=== PATIENT | female | born 1975 | race Caucasian/White ===

== ENCOUNTER 2024-11-04 21:57 | Inpatient (IN) | payer MEDICAID, OTHER ==
[~2024-11-04] VITALS: Ht 167.6 cm; Wt 72.0 kg
--- NOTE | 2024-11-04 22:10 | ECG ---
[facility] Test Date: 2024-11-04 Test Time: 21:58:44 Pat Name: ANJALI CHAU Department: ED Room: [address] [place] [address] Gender: F Carpentry Foreman: jg : 1975 Requested By: CATHY SILVERIO Order Number: [id number] Reading MD: Duglas Dorman Measurements Intervals [place] Rate: 127 P: 48 PA: 112 QRS: -9 QRSD: 144 T: 0 QT: 347 QTc: 505 Interpretive Statements Sinus tachycardia Consider right atrial enlargement Left bundle branch block Electronically Signed On 11-06-2024 22:27:53 PDT by Duglas Dorman Please click the below link to view image of tracing.
--- NOTE | 2024-11-04 22:14 | ED.PDOC ---
HPI Comments 49-year-old female who came to your via EMS for chest pains. Patient recently discharged at [facility], due to pneumonia and DVT of the left leg. Patient is started on Eliquis. States 12 hours ago, she started experiencing chest pains and shortness a breath, persisted and worsened prompting her to come to the ER. Chief Complaint: Chest Pain Time Seen by MD: 22:14 Reviewed Notes: Nurses Notes Allergies: Coded Allergies: NO KNOWN ALLERGIES (Unverified , 11/05/24) Information Source: Patient, Emergency Med Personnel Mode of Arrival: EMS Severity: Moderate Timing: Hours Duration: Since onset Prehospital treatment: None Location: Substernal Radiation: No Radiation Quality: Sharp Onset: With Light Exertion Cardiac Risk Factors: Other (DVT) History of: Similar pain in past Associated Signs and Symptoms: SOB Past Medical History Past Medical History (Other): DVT Surgical History: Denies all surgeries OB/GYN PHYSICIAN History: Denies all OB/GYN PHYSICIAN Hx Family History Family History: Reviewed,noncontributory to illness Social History Smoker: Non-Smoker Alcohol: Denies ETOH Use Drugs: Denies Drug Use Lives In: Home Constitutional: denies: chills, diaphoresis, fatigue, fever, malaise, sweats, weakness, others EENTM: denies: blurred vision, double vision, ear bleeding, ear discharge, ear drainage, ear pain, ear ringing, eye pain, eye redness, hearing loss, mouth pain , mouth swelling, nasal discharge, nose bleeding, nose congestion, nose pain, photophobia, tearing, throat pain, throat swelling, voice changes, others Respiratory: reports: shortness of breath; denies: cough, hemoptysis, orthopnea, SOB at rest, SOB with excertion, stridor, wheezing, others Cardiovascular: reports: chest pain; denies: dizzy spells, diaphoresis, Dyspnea on exertion, edema, irregular heart beat, left arm pain, lightheadedness, palpitations, PND, syncope, others Gastrointestinal: denies: abdomen distended, abdominal pain, blood streaked bowels, constipated, diarrhea, dysphagia, difficulty swallowing, hematemesis, melena, nausea, poor appetite, poor fluid intake, rectal bleeding, rectal pain, vomiting, others Genitourinary: denies: abnormal vagina bleeding, burning, dyspareunia, dysuria, flank pain, frequency, hematuria, incontinence, pain, , vagina discharge, urgency, others Neurological: denies: dizziness, fainting, headache, left sided numbness, left sided weakness, numbness, paresthesia, pre-existing deficit, right sided numbness, right sided weakness, seizure, speech problems, tingling, tremors, weakness, others Musculoskeletal: denies: back pain, gout, joint pain, joint swelling, muscle p ain, muscle stiffness, neck pain, others Integumetry: denies: bruises, change in color, change in hair/nails, dryness, laceration, lesions, lumps, rash, wounds, others Allergic/Immunocompromised: denies: Difficulty Healing, Frequent Infections, Hives, Itching, others Hematologic/Lymphatic: denies: anemia, blood clots, easy bleeding, easy bruising, swollen glands, others Endocrine: denies: excessive hunger, excessive sweating, excessive thirst, excessive urination, flushing, intolerance to cold, intolerance to heat, unexplained weight gain, unexplained weight loss, others Psychiatric: denies: anxiety, bipolar disorder, depression, hopeless, panic disorder, schizophrenia, sleepless, suicidal, others Physical Exam General Appearance: No Apparent Distress, Normal HEENT: Normal ENT Inspection, Pharynx Normal, TMs Normal Neck: Full Range of Motion, Non-Tender, Normal, Normal Inspection Respiratory: Chest Non-Tender, Lungs Clear, No Accessory Muscle Use, No Respiratory Distress, Normal Breath Sounds Cardiovascular: No Edema, No JVD, No Murmur, No Gallop, Normal Peripheral Pulses, Regular Rate/Rhythm Breast Exam: Deferred Gastrointestinal: No Organomegaly, Non Tender, No Pulsatile Mass, Normal Bowel Sounds, Soft Genitalia: Deferred Pelvic: Deferred Rectal: Deferred Extremities: No calf tenderness, Normal capillary refill, Normal inspection, Normal range of motion, Non-tender, No pedal edema Musculoskeletal : Apperance: Normal Neurologic: Alert, job compositor II-XII nml as Tested, No Motor Deficits, Normal Affect, Normal Mood, No Sensory Deficits Cerebellar Function: Normal Reflexes: Normal Skin: Dry, Normal Color, Warm Lymphatic: No Adenopathy Was a procedure done? Was a procedure done?: No CP Differential Dx Differential Diagnosis: Angina, Anxiety / Panic Attack, Pulmonary Embolus Differential Diagnosis: Angina, Chest Wall Pain, Costochondritis, Esophageal reflux/spasm, Gastritis, Myocardial Infarction, Pneumonia X-Ray, Labs, Meds, VS Vital Signs Date Time Temp Pulse Resp B/P (MAP) Pulse Ox O2 Delivery O2 Flow Rate FiO2 11/05/24 03:00 118 26 124/84 (97) 96 11/05/24 01:00 98.1 122 32 122/82 (95) 95 98.1 11/05/24 00:52 115 11/05/24 00:00 116 11/04/24 23:00 123 29 95 Room Air* 0 21 11/04/24 23:00 97.7 123 29 120/78 (92) 95 97.7 11/04/24 22:59 122 11/04/24 21:58 127 11/04/24 21:57 98.2 126 16 117/76 (90) 96 98.2 Lab Test 11/05/24 00:52 11/04/24 22:59 11/04/24 22:10 Range/Units Troponin I High Sensitivity 33 31 29 </=34 ng/L White Blood Count 6.6 4.4-10.8 10^3/uL Red Blood Count 4.04 4.0-5.20 10^6/uL Hemoglobin 10.8 L 12.2-16.2 g/dL Hematocrit 32.8 L 36.0-46.0 % Mean Corpuscular Volume 81.1 80.0-100.0 fL Mean Corpuscular Hemoglobin 26.7 L 28.0-32.0 pg Mean Corpuscular Hemoglobin Concent 32.9 32.0-36.0 g/dL Red Cell Distribution Width 15.8 H 11.8-14.3 % Platelet Count 391 140-450 10^3/uL Mean Platelet Volume 9.4 6.9-10.8 fL Neutrophils (%) (Auto) 78.8 37.0-80.0 % Lymphocytes (%) (Auto) 11.9 10.0-50.0 % Monocytes (%) (Auto) 8.4 0.0-12.0 % Eosinophils (%) (Auto) 0.1 0.0-7.0 % Basophils (%) (Auto) 0.8 0.0-2.0 % Neutrophils # (Auto) 5.2 1.6-8.6 10 ^3/uL Lymphocytes # (Auto) 0.8 0.4-5.4 10 ^3/uL Monocytes # (Auto) 0.6 0-1.3 10 ^3/uL Eosinophils # (Auto) 0 0-0.8 10 ^3/uL Basophils # (Auto) 0.1 0-0.2 10 ^3/uL Nucleated Red Blood Cells 0.0 % Sodium Level 135 L 136-145 mmol/L Potassium Level 4.3 3.5-5.1 mmol/L Chloride Level 104 98-107 mmol/L Carbon Dioxide Level 23 20-31 mmol/L Anion Gap 8 5-15 Blood Urea Nitrogen 8 L 9-23 mg/dL Creatinine 0.83 0.550-1.02 mg/dL Glomerular Filtration Rate Calc 87 >90 mL/min BUN/Creatinine Ratio 9.6 L 10.0-20.0 Serum Glucose 114 H 74-106 mg/dL Calcium Level 9.3 8.7-10.4 mg/dL Current Medications Medications (Trade) Dose Ordered Sig/Nevaeh Route Start Time Stop Time Status Last Admin Sodium Chloride 1,000 ml @ 1,000 mls/hr Q1H ONCE IV 11/05/24 03:45 11/05/24 04:44 DC 11/05/24 04:06 CHEST RADIOGRAPH Indication: leg pain Technique: Frontal and lateral view of the chest was obtained Comparison: None FINDINGS / IMPRESSION: Lines and Tubes: None Lungs: Multifocal airspace opacities noted in right upper and lower lobes and left upper and mid lung, may represent pneumonia. Pleura: No effusion. No pneumothorax. Cardiomediastinal contours: Moderate cardiomegaly. Left lower extremity venous duplex Clinical History: leg swelling and pain Comparison: None Technique: Duplex Doppler evaluation of the deep venous system of the left lower extremity from the common femoral vein to the popliteal vein including color Doppler and spectral/pulsed waveform analysis was performed. Findings: The common femoral vein demonstrates appropriate compressibility and waveform variability. There is compressibility/patency of the great saphenous vein at the proximal thigh. The proximal to mid femoral vein demonstrates appropriate compressibility and waveform variability. There is however non compressibility and evidence of thrombus in the distal superficial femoral vein, popiteal vein, and posterior tibial vein. Impression: Positive for left leg DVT with evidence of thrombus in distal superficial femoral vein, popiteal vein, and posterior tibial vein. Time of 1ST Reevaluation: 22:11 Reevaluation 1ST: Unchanged Patient Education/Counseling: Diagnosis, Treatment Family Education/Counseling: No Family Present Departure 1 Departure Time of Disposition: 05:13 (Patient is not septic. Patient presents symptoms concerning for DVT and PE. In my judgment the patient has a DVT and we will consult Interventional Radiology and. Patient's lungs have diffuse inflammatory processes. We will empirically cover patient with antibiotics and admit patient for expert consultation) Impression: Primary Impression: DVT (deep venous thrombosis) Qualified Codes: I82.412 - Acute embolism and thrombosis of left femoral ve in Additional Impressions: Shortness of breath Multifocal lung consolidation Disposition: ADMITTED INPATIENT Admit to: Tele Condition: Guarded Critical Care Note Critical Care Time?: Yes Critical care comment: Shortness of breath Authorized and Performed by: Cathy Gil MD Total critical care time: Approximately 39 minutes Due to a high probability of clinically significant, life threatening deterioration, the patient required my highest level of preparedness to interve ne emergently and I personally spent this critical care time directly and personally managing the patient. This critical care time included obtaining a history; examining the patient; pulse oximetry; ordering and review of studies; arranging urgent treatment with development of a management plan; evaluation of patient's response to treatment; frequent reassessment; and, discussions with other providers. This critical care time was performed to assess and manage the high probability of imminent, life-threatening deterioration that could result in multi-organ failure. It was exclusive of separately billable procedures and treating other patients and teaching time. Please see my other sections and the rest of the note for further information on patient assessment and treatment. Stability Stability form required: No Heart Score Heart Score: Heart Score Response (Comments) Value History N/A 0 EKG N/A 0 Age N/A 0 Risk Factors N/A 0 Troponin N/A 0 Total 0 I personally scribed for CATHY GIL MD ([email or web address]) on 11/04/24 at 22:14. Elect ronically submitted by Jaguar Osullivan ([email or web address]). I personally scribed for CATHY GIL MD ([email or web address]) on 11/05/24 at 00:54. E lectronically submitted by Jaguar Osullivan ([email or web address]). CATHY GIL MD November 04, 2024 22:14
[2024-11-04 22:29] LABS: Basophils # (auto) 0.1 10 ^3/uL (0-0.2); Basophils % (auto) 0.8 % (0.0-2.0); Eosinophils # (auto) 0 10 ^3/uL (0-0.8); Eosinophils % (auto) 0.1 % (0.0-7.0); Hematocrit 32.8 % (36.0-46.0); Hemoglobin 10.8 g/dL (12.2-16.2); Lymphocytes # (auto) 0.8 10 ^3/uL (0.4-5.4); Lymphocytes % (auto) 11.9 % (10.0-50.0); Mean Corpuscular Hemoglobin 26.7 pg (28.0-32.0); Mean Corpuscular Hgb Conc. 32.9 g/dL (32.0-36.0); Mean Corpuscular Volume 81.1 fL (80.0-100.0); Monocytes # (auto) 0.6 10 ^3/uL (0-1.3); Monocytes % (auto) 8.4 % (0.0-12.0); Neutrophils # (auto) 5.2 10 ^3/uL (1.6-8.6); Neutrophils % (auto) 78.8 % (37.0-80.0); Platelet Count (auto) 391 10^3/uL (140-450); Red Blood Cells 4.04 10^6/uL (4.0-5.20); Red Cell Distribution Width 15.8 % (11.8-14.3); White Blood Cell 6.6 10^3/uL (4.4-10.8)
[2024-11-04 22:35] LABS: Chloride 104 mmol/L (98-107); Potassium 4.3 mmol/L (3.5-5.1)
[2024-11-04 22:36] LABS: Anion Gap 8 (5-15); Carbon Dioxide 23 mmol/L (20-31)
[2024-11-04 22:37] LABS: Calcium 9.3 mg/dL (8.7-10.4)
[2024-11-04 22:38] LABS: Sodium 135 mmol/L (136-145)
[2024-11-04 22:42] LABS: BUN/Creatinine Ratio 9.6 (10.0-20.0); Blood Urea Nitrogen 8 mg/dL (9-23); Glucose 114 mg/dL (74-106)
[2024-11-04 23:00] VITALS: PULSE 123; RESP 29; O2SAT 95
[2024-11-05] VITALS (12 sets, daily range): BP systolic 124; BP diastolic 84; PULSE 103–119; RESP 12–25; TEMP 98.2; O2SAT 95–100
--- NOTE | 2024-11-05 00:06 | DVH ---
Left lower extremity venous duplex Clinical History: leg swelling and pain Comparison: None Technique: Duplex Doppler evaluation of the deep venous system of the left lower extremity from the common femor al vein to the popliteal vein including color Doppler and spectral/pulsed waveform analysis was perfo rmed. Findings: The common femoral vein demonstrates appropriate compressibility and waveform variability. There is compressibility/patency of the great saphenous vein at the proximal thigh. The proximal to mid femoral vein demonstrates appropriate compressibility and waveform variability. There is however non compressibility and evidence of thrombus in the distal superficial femoral vein, popiteal vein, and posterior tibial vein. Impression: Positive for left leg DVT with evidence of thrombus in distal superficial femoral vein, popiteal vei n, and posterior tibial vein.
--- NOTE | 2024-11-05 00:11 | DVH ---
CHEST RADIOGRAPH Indication: leg pain Technique: Frontal and lateral view of the chest was obtained Comparison: None FINDINGS / IMPRESSION: Lines and Tubes: None Lungs: Multifocal airspace opacities noted in right upper and lower lobes and left upper and mid lung , may represent pneumonia. Pleura: No effusion. No pneumothorax. Cardiomediastinal contours: Moderate cardiomegaly.
[2024-11-05] MEDS: IOHEXOL 350 MG/ML 100ML IJ ONE (02:51)
--- NOTE | 2024-11-05 03:15 | ECG ---
[facility] Test Date: 2024-11-04 Test Time: 22:59:44 Pat Name: ANJALI CHAU Department: ED Room: [address] [place] [address] Gender: F Bee Raiser: COLLETTE : 1975 Requested By: CATHY SILVERIO Order Number: [id number] Reading MD: Duglas Dorman Measurements Intervals [place] Rate: 122 P: 64 AR: 109 QRS: 1 QRSD: 151 T: -28 QT: 367 QTc: 523 Interpretive Statements Sinus tachycardia Left bundle branch block Electronically Signed On 11-06-2024 22:28:14 PDT by Duglas Dorman Please click the below link to view image of tracing.
--- NOTE | 2024-11-05 03:16 | ECG ---
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
[2024-11-05] MEDS: SODIUM CHLORIDE 0.9% 1,000 ML IV ONE ×3 (04:06→07:49)
[2024-11-05] MEDS: AZITHROMYCIN 250 MG TAB PO ONE (04:45)
[2024-11-05] MEDS: CEFEPIME 2GM/50ML NS 50 ML IV ONE (04:45)
[2024-11-05] MEDS: VANCOMYCIN 1GM/200ML PM 200 ML IV ONE (04:45)
--- NOTE | 2024-11-05 04:46 | DVH ---
Procedure: CT CT ANGIO CHEST CONTRAST Reason for study/Clinical History: angel pain, sob, dvt Comparison Study: None Exam Date: 11/05/2024 02:49 AM Radiation Dose Information: CT Dose: CTDI volume is 223.5 mGy. Dose-length product is 1802.8 mGy*cm Contrast: 100 cc Omnipaque 350 TECHNIQUE: After the uneventful administration of intravenous contrast intravenously, CT imaging was performed through the chest PE protocol. Coronal and sagittal reformations were performed by the tech nologist including MIP and 3D reformatted images.All CT scans at this medical facility are performed using dose modulation techniques as appropriate to a performed exam including the following: Automate d exposure control was utilized; adjustment of the MA and/or KV according to patient size; and use of iterative reconstruction technique. FINDINGS: Evaluation of the pulmonary arteries demonstrates no evidence of focal filling defect to suggest pulm onary embolus. Thoracic aorta appears normal in caliber and contour. No pericardial effusion. Small right pleural effusion. There is cardiomegaly Diffuse ill-defined pulmonary nodules with multiple areas of more consolidative lesions. More cavita ry appearing lesion with central crazy paving measuring 2.7 cm in the right upper lobe, similar appea ring lesion in the right lower lobe measuring 3.3 cm. Mediastinal adenopathy with lymph nodes measuring up to 1.4 cm. Visualized portions of the upper abdomen demonstrate gastric lap band. No suspicious osseous lesion. IMPRESSION: 1. Diffuse pulmonary abnormality with multiple ill-defined pulmonary nodules, cavitary type lesions a nd crazy paving. Differential considerations are broad including protein alveolar proteinosis, pneumo gemini such as pneumocystis jiroveci, organizing pneumonia, least likely malignancy given appearance. 2. Mediastinal adenopathy, likely reactive 3. Small right pleural effusion 4. Cardiomegaly 5. No evidence of pulmonary embolism.
[2024-11-05] MEDS ORDERED: ACETAMINOPHEN 325 MG TAB PO PRN (05:30)
[2024-11-05] MEDS ORDERED: HEPARIN SODIUM (PORCINE) 5000 UNITS/ML 1ML VIAL IV ONE (05:30)
[2024-11-05] MEDS ORDERED: ONDANSETRON HCL 4 MG/2 ML VIAL IV PRN (05:30)
[2024-11-05] MEDS: methylPREDNISolone SOD SUCC 40 MG/ML VL IV SCH (06:00)
--- NOTE | 2024-11-05 06:14 | DVHHP2 ---
Admitting Diagnosis: Pneumocystis Jirovecii, acute respiratory failure, hypoxia, left lower extremity DVT History of Present Illness History Source: Patient Exam Limitations: Clinical condition HPI Mrs. Breanna Ramey is a 49-year-old female with a recent history of LLE DVT, Pneumonia seen and treated at [facility] with chest pain and shortness of breath. Patient is a poor historian. Patient was started on Eliquis. Patient states 12 hours ago, she started experiencing chest pains and shortness a breath, persisted and worsened. Patient CTA chest resulted : 1. Diffuse pulmonary abnormality with multiple ill-defined pulmonary nodules, cavitary type lesions and crazy paving. Differential considerations are broad including protein alveolar proteinosis, pneumonia such as pneumocystis jiroveci, organizing pneumonia, least likely malignancy given appearance. 2. Mediastinal adenopathy, likely reactive 3. Small right pleural effusion 4. Cardiomegaly 5. No evidence of pulmonary embolism. Patient admitted for further evaluation and treatment. Past Medical History Cardiac: No pertinent Hx Pulmonary: No pertinent Hx Central Nervous System: No pertinent Hx GI: No pertinent Hx Hemotology/Oncology: No pertinent Hx Hepatobiliary: No pertinent Hx Psychiatric: No pertinent Hx Musculoskeletal: No pertinent Hx Rheumotologic: No pertinent Hx Infectious Disease: No peritnent Hx ENT: No pertinent Hx Renal/: No pertinent Hx Endocrine: No pertinent Hx Dermatology: No pertinent Hx Others left leg DVT, Pneumonia Smoker: <1 pack per day Alocohol: None Drugs: Amphetimines Review of Systems Constitutional: No symptom reported Ears, Nose, & Throat: No symptom reported Eyes: No symptom reported Pulmonary/Respiratory: Dyspnea, Cough Cardiovascular: Chest Pain Gastrointestinal: No symptom reported Genitourinary: No symptom reported Musculoskeletal: No symptom reported Skin: No symptom reported Psychiatric: No symptom reported Endocrine: No symptom reported Hemotologic/Lymphatic: No symptom reported H&P Exam Vital Signs Vital Signs Date Time Temp Pulse Resp B/P (MAP) Pulse Ox O2 Delivery O2 Flow Rate FiO2 11/05/24 03:00 118 26 124/84 (97) 96 11/05/24 01:00 98.1 98.1 11/04/24 23:00 Room Air* 0 21 General Appeara: Well developed, Well nourished Head Exam: Normal inspection Neck Exam: Normal inspection, Non-tender, Normal alignment Eye Exam: bilateral eye Normal inspection, bilateral eye PERRL, bilateral eye EOMI Ear Exam: bilateral ear Auricle normal Nasal Exam: Normal inspection Mouth: Normal Inspection Pulmonary/Respiratory: Normal inspection, Chest non-tender, Wheezing Cardiovascular/Chest: Normal inspection, Regular rate, Normal Rhythm Peripheral Pulses: 2+ dorsalis pedis (R), 2+ dorsalis pedis (L), 2+ Radial (R), 2+ Radial (L) Abdominal Exam: Normal bowel sounds, Soft Rectal Exam: Deferred Pelvic Exam: Not done RESEARCH EPIDEMIOLOGIST Exam: Normal hearing, Normal speech, PERRL Motor/Sensory: Normal sensory function, Normal motor function Neuro/Mental St: Alert, Oriented Appearance: Appropriate insight, Disheveled Eye contact/ Speech: Cooperative, Good eye contact, Normal speech Thoughts/Psych: Normal thought pattern Skin Exam: Normal inspection, Normal color, Warm/dry Labs/Xrays Labs Test 11/05/24 00:52 11/04/24 22:10 Range/Units Troponin I High Sensitivity 33 </=34 ng/L White Blood Count 6.6 4.4-10.8 10^3/uL Red Blood Count 4.04 4.0-5.20 10^6/uL Hemoglobin 10.8 L 12.2-16.2 g/dL Hematocrit 32.8 L 36.0-46.0 % Mean Corpuscular Volume 81.1 80.0-100.0 fL Mean Corpuscular Hemoglobin 26.7 L 28.0-32.0 pg Mean Corpuscular Hemoglobin Concent 32.9 32.0-36.0 g/dL Red Cell Distribution Width 15.8 H 11.8-14.3 % Platelet Count 391 140-450 10^3/uL Mean Platelet Volume 9.4 6.9-10.8 fL Neutrophils (%) (Auto) 78.8 37.0-80.0 % Lymphocytes (%) (Auto) 11.9 10.0-50.0 % Monocytes (%) (Auto) 8.4 0.0-12.0 % Eosinophils (%) (Auto) 0.1 0.0-7.0 % Basophils (%) (Auto) 0.8 0.0-2.0 % Neutrophils # (Auto) 5.2 1.6-8.6 10 ^3/uL Lymphocytes # (Auto) 0.8 0.4-5.4 10 ^3/uL Monocytes # (Auto) 0.6 0-1.3 10 ^3/uL Eosinophils # (Auto) 0 0-0.8 10 ^3/uL Basophils # (Auto) 0.1 0-0.2 10 ^3/uL Nucleated Red Blood Cells 0.0 % Sodium Level 135 L 136-145 mmol/L Potassium Level 4.3 3.5-5.1 mmol/L Chloride Level 104 98-107 mmol/L Carbon Dioxide Level 23 20-31 mmol/L Anion Gap 8 5-15 Blood Urea Nitrogen 8 L 9-23 mg/dL Creatinine 0.83 0.550-1.02 mg/dL Glomerular Filtration Rate Calc 87 >90 mL/min BUN/Creatinine Ratio 9.6 L 10.0-20.0 Serum Glucose 114 H 74-106 mg/dL Calcium Level 9.3 8.7-10.4 mg/dL Assessment/Plan Problem List: (1) Multifocal lung consolidation (2) DVT (deep venous thrombosis) (3) Shortness of breath Plan This is a 49 yo female with known history of DVT to LLE , Pneumonia, Methamphetamine abuse, smoker who presents with a chief complaint of chest pain, shortness of breath. Patient found to have 1. Pneumocystis Jirovecii 2. Acute respiratory failure with hypoxia 3. Left lower extremity DVT 4. Methamphetamine abuse 5. Tachycardia Plan: Admit CLAUDE Pulmonology consultation, IV antibiotics, IV steroids, Bronchodilators, sputum culture Gram stain Infectious disease consultation, Lactate level, BC x2 Cardiology consultation , 2d echocardiogram Lovenox 1mg/kg SC q 12h GI ppx Protonix Monitor CBC, BMP Supplemental oxygen as needed to keep 02 saturations above 92% Discussed all above with patient who verbalizes agreement and understanding of care plan. All questions were answered. Discussed with supervising MD. Patient's chart is reviewed. Patient is seen, evaluated and admitted by nurse practitioner. I agree with the nurse practitioner's evaluation, documentation, assessment and care plan as outlined. Plan discussed with: Patient, Other Code Visit Code Visit Total Time (mins): 45 ANGELY ROJO November 05, 2024 06:14 STEPHANIE MCCABE MD November 05, 2024 11:09
[2024-11-05] MEDS: IPRATROPIUM BROM 0.5 MG/2.5ML INH SOL NEB SCH (06:20)
[2024-11-05 07:03] LABS: Eosinophils # (auto) 0 10 ^3/uL (0-0.8); Hematocrit 32.7 % (36.0-46.0); Hemoglobin 10.4 g/dL (12.2-16.2); Lymphocytes # (auto) 0.7 10 ^3/uL (0.4-5.4); Mean Corpuscular Hgb Conc. 31.8 g/dL (32.0-36.0); Monocytes # (auto) 0.7 10 ^3/uL (0-1.3); Monocytes % (auto) 8.7 % (0.0-12.0); Neutrophils # (auto) 6.1 10 ^3/uL (1.6-8.6)
[2024-11-05 07:08] LABS: Basophils # (auto) 0 10 ^3/uL (0-0.2); Basophils % (auto) 0.6 % (0.0-2.0); Lymphocytes % (auto) 9.9 % (10.0-50.0); Mean Corpuscular Hemoglobin 26.5 pg (28.0-32.0); Mean Corpuscular Volume 83.2 fL (80.0-100.0); Neutrophils % (auto) 80.8 % (37.0-80.0); Nucleated Red Blood Cells % 0.1 %; Platelet Count (auto) 364 10^3/uL (140-450); Red Blood Cells 3.93 10^6/uL (4.0-5.20); Red Cell Distribution Width 16.1 % (11.8-14.3); White Blood Cell 7.5 10^3/uL (4.4-10.8)
[2024-11-05 07:31] LABS: INR 1.29 (0.9-1.15); Partial Thromboplastin Time 23.2 SEC (24.5-34.5); Prothrombin Time 13.3 sec (9.3-11.8)
[2024-11-05] MEDS: HYDROcodone-ACET 5/325MG TAB PO PRN (07:49)
[2024-11-05 08:27] LABS: Amphetamine Screen, Urine Pos (NEGATIVE)
[2024-11-05 08:32] LABS: Barbiturate Scree,Urine Neg (NEGATIVE); Benzodiazephine Screen, Urine Neg (NEGATIVE); Cannabinoid Screen, Urine Neg (NEGATIVE); Cocaine Screen, Urine Neg (NEGATIVE); Opiate Scree,Urine Neg (NEGATIVE); Phencyclidine Screen, Urine Neg (NEGATIVE)
--- NOTE | 2024-11-05 08:45 | DVHINCON2 ---
Date of service: November 05, [address] cortez Reason for Consultation sob History of Present Illness HPI The patient is a 49-year-old lady with a history of substance abuse and frequent admissions, history of DVT on Eliquis. She has a history of pulmonary hypertension and presented with worsening shortness of breath and diffuse infiltrates on chest x-ray. Past Medical History Cardiac: CHF Pulmonary: COPD Central Nervous System: No pertinent Hx GI: No pertinent Hx Hemotology/Oncology: No pertinent Hx Hepatobiliary: No pertinent Hx Psychiatric: No pertinent Hx Musculoskeletal: No pertinent Hx Rheumotologic: No pertinent Hx Infectious Disease: No peritnent Hx ENT: No pertinent Hx Renal/: No pertinent Hx Endocrine: No pertinent Hx Dermatology: No pertinent Hx Others left leg DVT, Pneumonia Past Surgical History: No pertinent Hx Review of Systems Constitutional: Malaise, Weakness Ears, Nose, & Throat: No symptom reported Eyes: No symptom reported Pulmonary/Respiratory: Dyspnea, Cough Cardiovascular: No symptom reported Gastrointestinal: No symptom reported Genitourinary: No symptom reported Musculoskeletal: No symptom reported Skin: No symptom reported Psychiatric: No symptom reported Endocrine: No symptom reported Hemotologic/Lymphatic: No symptom reported H&P Exam Vital Signs Vital Signs Date Time Temp Pulse Resp B/P (MAP) Pulse Ox O2 Delivery O2 Flow Rate FiO2 11/05/24 08:15 98.2 117 20 124/84 98 4.0 36 98.2 11/05/24 08:05 Nasal Cannula* General Appeara: Well developed, Well nourished, Normal Appearance Head Exam: Normal inspection Neck Exam: Normal inspection, Non-tender, Normal alignment Eye Exam: bilateral eye Normal inspection, bilateral eye PERRL Ear Exam: bilateral ear Auricle normal, bilateral ear Canal normal Nasal Exam: Normal inspection Mouth: Normal Inspection Pulmonary/Respiratory: Normal inspection, Normal breath sounds Cardiovascular/Chest: Normal inspection Peripheral Pulses: 4+ carotid (R), 4+ carotid (L) Abdominal Exam: Normal bowel sounds Labs/Xrays Labs Test 11/05/24 08:06 11/05/24 06:30 11/04/24 22:10 Range/Units Urine Opiates Screen Neg NEGATIVE Urine Fentanyl Screen Neg NEGATIVE Urine Barbiturates Screen Neg NEGATIVE Urine Phencyclidine Screen Neg NEGATIVE Urine Amphetamines Screen Pos NEGATIVE Urine Benzodiazepines Screen Neg NEGATIVE Urine Cocaine Screen Neg NEGATIVE Urine Cannabinoids Screen Neg NEGATIVE White Blood Count 7.5 4.4-10.8 10^3/uL Red Blood Count 3.93 L 4.0-5.20 10^6/uL Hemoglobin 10.4 L 12.2-16.2 g/dL Hematocrit 32.7 L 36.0-46.0 % Mean Corpuscular Volume 83.2 80.0-100.0 fL Mean Corpuscular Hemoglobin 26.5 L 28.0-32.0 pg Mean Corpuscular Hemoglobin Concent 31.8 L 32.0-36.0 g/dL Red Cell Distribution Width 16.1 H 11.8-14.3 % Platelet Count 364 140-450 10^3/uL Mean Platelet Volume 9.1 6.9-10.8 fL Neutrophils (%) (Auto) 80.8 H 37.0-80.0 % Lymphocytes (%) (Auto) 9.9 L 10.0-50.0 % Monocytes (%) (Auto) 8.7 0.0-12.0 % Eosinophils (%) (Auto) 0.0 0.0-7.0 % Basophils (%) (Auto) 0.6 0.0-2.0 % Neutrophils # (Auto) 6.1 1.6-8.6 10 ^3/uL Lymphocytes # (Auto) 0.7 0.4-5.4 10 ^3/uL Monocytes # (Auto) 0.7 0-1.3 10 ^3/uL Eosinophils # (Auto) 0 0-0.8 10 ^3/uL Basophils # (Auto) 0 0-0.2 10 ^3/uL Nucleated Red Blood Cells 0.1 % Prothrombin Time 13.3 H 9.3-11.8 sec Prothrombin Time INR 1.29 H 0.9-1.15 Activated Partial Thromboplast Time 23.2 L 24.5-34.5 SEC Lactic Acid Level 1.7 0.4-2.0 mmol/L Troponin I High Sensitivity 24 </=34 ng/L Sodium Level 135 L 136-145 mmol/L Potassium Level 4.3 3.5-5.1 mmol/L Chloride Level 104 98-107 mmol/L Carbon Dioxide Level 23 20-31 mmol/L Anion Gap 8 5-15 Blood Urea Nitrogen 8 L 9-23 mg/dL Creatinine 0.83 0.550-1.02 mg/dL Glomerular Filtration Rate Calc 87 >90 mL/min BUN/Creatinine Ratio 9.6 L 10.0-20.0 Serum Glucose 114 H 74-106 mg/dL Calcium Level 9.3 8.7-10.4 mg/dL Assessment/Plan Plan Pneumonia Lung cavities Acute hypoxemic respiratory failure pulmonary hypertension patient is seen and examined in the emergency room Labs reviewed CT angiogram reviewed no evidence of PE Bilateral nodules Multiple cavitary lesions Management plan Supportive care/supplemental oxygen Bronchodilators Broad-spectrum antibiotics Obtain blood cultures Obtain HIV test Echocardiogram Consider bronchoscopy when more stable GI and DVT prophylaxis Observe closely Critical care time 35 minutes Plan discussed with: Patient VIOLETTE FLEMING MD November 05, 2024 08:45
[2024-11-05] MEDS: PANTOPRAZOLE 40 MG/10 ML VIAL INJ IV SCH (10:01)
[2024-11-05] MEDS: ENOXAPARIN SOD 100 MG/1 ML SYRINGE SC SCH (10:01)
[2024-11-05] MEDS: DOXYCYCLINE 100MG/100ML 100 ML IV SCH (10:01)
[2024-11-05] MEDS: OPTISON 3ml Vial for INJ IV ONE (12:38)
--- NOTE | 2024-11-05 14:13 | DVHINCON2 ---
Date of service: November 05, 2024 History of Present Illness Mrs. Breanna Ramey is a 49-year-old female with a recent history of LLE DVT, Pneumonia seen and treated at [facility] with chest pain and shortness of br eath. Patient is a poor historian. Patient was started on Eliquis. Patient states 12 hours ago, she started experiencing chest pains and shortness a breath, persisted and worsened. Patient CTA chest resulted : 1. Diffuse pulmonary abnormality with multiple ill-defined pulmonary nodules, cavitary type lesions and crazy paving. Differential considerations are broad including protein alveolar proteinosis, pneumonia such as pneumocystis jiroveci, organizing pneumonia, least likely malignancy given appearance. 2. Mediastinal adenopathy, likely reactive 3. Small right pleural effusion 4. Cardiomegaly 5. No evidence of pulmonary embolism. Patient admitted for further evaluation and treatment. Past Medical History reviewed Allergies: Coded Allergies: NO KNOWN ALLERGIES (Unverified , 11/05/24) Current Medications Current Medications Medications (Trade) Dose Ordered Sig/Nevaeh Route PRN Reason Start Time Stop Time Status Last Admin Methylprednisolone Sodium Succinate (Solu Medrol) 40 mg Q6HR IV 11/05/24 06:00 11/05/24 12:21 Doxycycline Hyclate 100 ml @ 50 mls/hr BID IV 11/05/24 10:00 11/05/24 10:01 Ipratropium [place] (Atrovent Medneb) 0.5 mg Q4HR NEB 11/05/24 06:00 11/05/24 10:35 Ondansetron HCl (Zofran) 4 mg Q6HPRN PRN IV NAUSEA / VOMITING 11/05/24 05:30 Acetaminophen (Tylenol Tablet) 650 mg Q6HPRN PRN PO PAIN SCALE 1-3 OR TEMP>100.4 11/05/24 05:30 Pantoprazole Sodium (Protonix) 40 mg DAILY IV 11/05/24 10:00 11/05/24 10:01 Acetaminophen/ Hydrocodone Bitart ([place] 5/325MG Tab) 1 tab Q6HPRN PRN PO PAIN SCALE 1 THRU 6 11/05/24 05:30 11/05/24 07:49 Enoxaparin Sodium (Lovenox) 70 mg Q12HR SC 11/05/24 10:00 11/05/24 10:01 Review of Systems 10 pt ros otherwise negatie Vital Signs Vital Signs Date Time Temp Pulse Resp B/P (MAP) Pulse Ox O2 Delivery O2 Flow Rate FiO2 11/05/24 13:00 109 20 105/64 (78) 98 11/05/24 12:00 98.2 98.2 11/05/24 08:15 4.0 36 11/05/24 08:05 Nasal Cannula* Physical Exam ill appearing rhonchi bilateral Labs/Diagnostic Data Labs Test 11/05/24 08:06 11/05/24 06:30 11/04/24 22:10 Range/Units Urine Opiates Screen Neg NEGATIVE Urine Fentanyl Screen Neg NEGATIVE Urine Barbiturates Screen Neg NEGATIVE Urine Phencyclidine Screen Neg NEGATIVE Urine Amphetamines Screen Pos NEGATIVE Urine Benzodiazepines Screen Neg NEGATIVE Urine Cocaine Screen Neg NEGATIVE Urine Cannabinoids Screen Neg NEGATIVE White Blood Count 7.5 4.4-10.8 10^3/uL Red Blood Count 3.93 L 4.0-5.20 10^6/uL Hemoglobin 10.4 L 12.2-16.2 g/dL Hematocrit 32.7 L 36.0-46.0 % Mean Corpuscular Volume 83.2 80.0-100.0 fL Mean Corpuscular Hemoglobin 26.5 L 28.0-32.0 pg Mean Corpuscular Hemoglobin Concent 31.8 L 32.0-36.0 g/dL Red Cell Distribution Width 16.1 H 11.8-14.3 % Platelet Count 364 140-450 10^3/uL Mean Platelet Volume 9.1 6.9-10.8 fL Neutrophils (%) (Auto) 80.8 H 37.0-80.0 % Lymphocytes (%) (Auto) 9.9 L 10.0-50.0 % Monocytes (%) (Auto) 8.7 0.0-12.0 % Eosinophils (%) (Auto) 0.0 0.0-7.0 % Basophils (%) (Auto) 0.6 0.0-2.0 % Neutrophils # (Auto) 6.1 1.6-8.6 10 ^3/uL Lymphocytes # (Auto) 0.7 0.4-5.4 10 ^3/uL Monocytes # (Auto) 0.7 0-1.3 10 ^3/uL Eosinophils # (Auto) 0 0-0.8 10 ^3/uL Basophils # (Auto) 0 0-0.2 10 ^3/uL Nucleated Red Blood Cells 0.1 % Prothrombin Time 13.3 H 9.3-11.8 sec Prothrombin Time INR 1.29 H 0.9-1.15 Activated Partial Thromboplast Time 23.2 L 24.5-34.5 SEC Lactic Acid Level 1.7 0.4-2.0 mmol/L Troponin I High Sensitivity 24 </=34 ng/L HIV (1&2) Antibody Negative Negative Sodium Level 135 L 136-145 mmol/L Potassium Level 4.3 3.5-5.1 mmol/L Chloride Level 104 98-107 mmol/L Carbon Dioxide Level 23 20-31 mmol/L Anion Gap 8 5-15 Blood Urea Nitrogen 8 L 9-23 mg/dL Creatinine 0.83 0.550-1.02 mg/dL Glomerular Filtration Rate Calc 87 >90 mL/min BUN/Creatinine Ratio 9.6 L 10.0-20.0 Serum Glucose 114 H 74-106 mg/dL Calcium Level 9.3 8.7-10.4 mg/dL Assessment LBBB severe chf severe LV dysfunction r/o fungal pna Plan/Recommendation r/o HIV pcp pna iv lasix for severe chf hx of dvt anticoag iv lasix guarded prognosis 40 mins critical care time spent Plan discussed with: Patient BRAYDEN TRUONG MD November 05, 2024 14:13
--- NOTE | 2024-11-05 14:33 | DVHSR ---
APPROVED REPORT EXAM: Two-dimensional and M-mode echocardiogram with Doppler, color Doppler, bubble study and Optison . Blood Pressure: 124/84 mmHg INDICATION Chest Pain Tachycardia RISK FACTORS Height: 5' 8", Weight: 158 DIMENSIONS LVDd5.9 (3.8-5.7cm)LA (2D)4.7 (1.9-4.0cm)Aortic Root2.8 (2.0-3.7cm) LVDs5.7 (2.5-4.0cm)LA (MM) (1.9-4.0cm)Aortic Cusp Exc1.4 (1.5-2.0cm) EF (%) 7.0 (55-70%)Rt. Atrium5.0 (1.9-4.0cm)Asc. Aorta cm IVSd0.8 (0.7-1.1cm)RV (D) (1.8-2.4cm) PWd1.1 (0.7-1.1cm) Mitral Valve MitralMitral Stenosis E wave1.50m/sMV Mean GR.mmHg E/A ratio0.02D MVAcm2 Aortic Valve Aortic ValveAortic Stenosis V10.50m/Cr Mean GR.7mmHg V21.70m/Cr Peak GR.12mmHg AI P 1/2 Atsf633.70ms Pulmonic Valve V20.40m/s Tricuspid Valve TR Velocity2.70m/s [id number] Conclusion lvef 10% by visual estimate severe dilated LV end stage cardimyopathy RV dysfunction bubble study is negative for R to L shunting moderate mitral regurg severe tricuspd regurg
[2024-11-05] MEDS: FUROSEMIDE 40 MG/4 ML VIAL IV SCH (14:38)
[2024-11-06] VITALS (12 sets, daily range): BP systolic 99–120; BP diastolic 72–84; PULSE 100–115; RESP 14–23; TEMP 97.5–97.9; O2SAT 95–99
[2024-11-06] MEDS ORDERED: IPRATROPIUM BROM 0.5 MG/2.5ML INH SOL NEB PRN
[2024-11-06 04:14] LABS: Basophils # (auto) 0 10 ^3/uL (0-0.2); Basophils % (auto) 0.2 % (0.0-2.0); Eosinophils # (auto) 0 10 ^3/uL (0-0.8); Hematocrit 34.4 % (36.0-46.0); Hemoglobin 10.9 g/dL (12.2-16.2); Lymphocytes # (auto) 0.7 10 ^3/uL (0.4-5.4); Lymphocytes % (auto) 6.6 % (10.0-50.0); Mean Corpuscular Hemoglobin 26.8 pg (28.0-32.0); Mean Corpuscular Hgb Conc. 31.6 g/dL (32.0-36.0); Mean Corpuscular Volume 84.7 fL (80.0-100.0); Monocytes # (auto) 0.3 10 ^3/uL (0-1.3); Monocytes % (auto) 2.6 % (0.0-12.0); Neutrophils # (auto) 9.6 10 ^3/uL (1.6-8.6); Neutrophils % (auto) 90.6 % (37.0-80.0); Nucleated Red Blood Cells % 0.1 %; Platelet Count (auto) 367 10^3/uL (140-450); Red Blood Cells 4.06 10^6/uL (4.0-5.20); Red Cell Distribution Width 16.3 % (11.8-14.3); White Blood Cell 10.6 10^3/uL (4.4-10.8)
[2024-11-06 04:22] LABS: Chloride 103 mmol/L (98-107); Potassium 4.5 mmol/L (3.5-5.1)
[2024-11-06 04:23] LABS: Anion Gap 10 (5-15); Carbon Dioxide 22 mmol/L (20-31)
[2024-11-06 04:24] LABS: Calcium 8.9 mg/dL (8.7-10.4)
[2024-11-06 04:28] LABS: BUN/Creatinine Ratio 19.8 (10.0-20.0); Blood Urea Nitrogen 16 mg/dL (9-23)
[2024-11-06 04:29] LABS: Glucose 161 mg/dL (74-106); Sodium 135 mmol/L (136-145)
--- NOTE | 2024-11-06 12:29 | DVHPN2 ---
Progress Note - Dictate Date Seen: Nov 06, 2024 Has the PT tested + for MRSA If YES, has PT been informed?: No Medical Necessity Reason Pt with a Central, PICC or Fol: No vital signs Vital Sign Date Time Temp Pulse Resp B/P (MAP) Pulse Ox O2 Delivery O2 Flow Rate FiO2 11/06/24 09:00 103 18 108/78 (88) 98 11/06/24 07:09 Nasal Cannula* 2 28 11/06/24 07:09 98.3 98.3 Total Intake and Output 11/05/24 11/05/24 11/06/24 15:00 23:00 07:00 Intake Total 100 ml 1050 ml 650 ml Output Total 1600 ml Balance 100 ml 1050 ml -950 ml medications Current Medications Medications Dose Ordered Sig/Nevaeh Route Start Time Stop Time Status Last Admin Dose Admin Methylprednisolone Sodium Succinate 40 mg Q6HR IV 11/05/24 06:00 11/06/24 12:21 40 MG Doxycycline Hyclate 100 ml @ 50 mls/hr BID IV 11/05/24 10:00 11/06/24 09:46 50 MLS/HR Ondansetron HCl 4 mg Q6HPRN PRN IV 11/05/24 05:30 Acetaminophen 650 mg Q6HPRN PRN PO 11/05/24 05:30 Pantoprazole Sodium 40 mg DAILY IV 11/05/24 10:00 11/06/24 09:46 40 MG Acetaminophen/ Hydrocodone Bitart 1 tab Q6HPRN PRN PO 11/05/24 05:30 11/05/24 07:49 1 TAB Enoxaparin Sodium 70 mg Q12HR SC 11/05/24 10:00 11/06/24 09:46 70 MG Furosemide 40 mg BIDD IV 11/05/24 14:15 11/06/24 05:17 40 MG Ipratropium [place] 0.5 mg Q4HR PRN NEB 11/06/24 00:00 laboratory and microbiology Laboratory Tests 11/06/24 04:03 Test 11/06/24 04:03 Range/Units Serum Glucose 161 H 74-106 mg/dL Assessment/Plan Pneumonia Lung cavities Acute hypoxemic respiratory failure pulmonary hypertension patient is seen and examined in the emergency room Labs reviewed CT angiogram reviewed no evidence of PE Bilateral nodules Multiple cavitary lesions HIV neg've! Management plan Supportive care/supplemental oxygen Bronchodilators Broad-spectrum antibiotics f/up on cx Echocardiogram GI and DVT prophylaxis Plan discussed with: Other (rn) VIOLETTE FLEMING MD Nov 06, 2024 12:29
--- NOTE | 2024-11-06 14:37 | DVHPN2 ---
Progress Note - Dictate Date Seen: Nov 06, 2024 Has the PT tested + for MRSA If YES, has PT been informed?: No Medical Necessity Reason Pt with a Central, PICC or Fol: No Subjective Patient is comfortable mildly tachycardic but no significant complaints shortness for breath or chest pain. Patient is seen and evaluated by both boat driver and sofa back upholsterer. Echocardiogram report is reviewed shows EF 10%. vital signs Vital Sign Date Time Temp Pulse Resp B/P (MAP) Pulse Ox O2 Delivery O2 Flow Rate FiO2 11/06/24 14:00 103 21 116/74 (88) 97 11/06/24 13:20 98.1 98.1 11/06/24 07:09 Nasal Cannula* 2 28 Total Intake and Output 11/05/24 11/05/24 11/06/24 15:00 23:00 07:00 Intake Total 100 ml 1050 ml 650 ml Output Total 1600 ml Balance 100 ml 1050 ml -950 ml medications Current Medications Medications Dose Ordered Sig/Nevaeh Route Start Time Stop Time Status Last Admin Dose Admin Methylprednisolone Sodium Succinate 40 mg Q6HR IV 11/05/24 06:00 11/06/24 12:21 40 MG Doxycycline Hyclate 100 ml @ 50 mls/hr BID IV 11/05/24 10:00 11/06/24 09:46 50 MLS/HR Ondansetron HCl 4 mg Q6HPRN PRN IV 11/05/24 05:30 Acetaminophen 650 mg Q6HPRN PRN PO 11/05/24 05:30 Pantoprazole Sodium 40 mg DAILY IV 11/05/24 10:00 11/06/24 09:46 40 MG Acetaminophen/ Hydrocodone Bitart 1 tab Q6HPRN PRN PO 11/05/24 05:30 11/05/24 07:49 1 TAB Enoxaparin Sodium 70 mg Q12HR SC 11/05/24 10:00 11/06/24 09:46 70 MG Furosemide 40 mg BIDD IV 11/05/24 14:15 11/06/24 05:17 40 MG Ipratropium [place] 0.5 mg Q4HR PRN NEB 11/06/24 00:00 objective Comfortable in bed without distress. HEENT neck supple no JVD. Heart regular rate and rhythm S1 and S2. Lungs fair air movement without rales wheezes. Abdomen soft nontender, positive bowel sounds. Extremities improved edema laboratory and microbiology Laboratory Tests 11/06/24 04:03 Test 11/06/24 04:03 Range/Units Serum Glucose 161 H 74-106 mg/dL Assessment/Plan Congestive cardiomyopathy Acute on chronic diastolic dysfunction Methamphetamine use disorder Left lower extremity DVT Patient is clinically stable. His oxygenation is significantly improved. Continue IV diuresis. Given low normal blood pressure we will start low-dose beta [place] for her cardiomyopathy. If her blood pressure tolerates we will consider adding other medications. Otherwise continue Lovenox for DVT and breathing treatments and rest of supportive care and treatment as she is on. If no bronchoscopy or further interventions needed then we will transitioned to oral Eliquis. Encouraged activity. Social Service consultation for methamphetamine misuse. Otherwise further clinical management per clinical course Problems(with codes): (1) Multifocal lung consolidation (2) DVT (deep venous thrombosis) Plan discussed with: Other STEPHANIE MCCABE MD Nov 06, 2024 14:37
[2024-11-06] MEDS: CARVEDILOL 3.125 MG TAB PO SCH (22:04)
[2024-11-07] VITALS (55 sets, daily range): BP systolic 92–121; BP diastolic 56–84; PULSE 83–110; RESP 11–34; TEMP 97.9–98.2; O2SAT 92–100
--- NOTE | 2024-11-07 04:49 | DVH ---
CHEST RADIOGRAPH Indication: PNA/FOLLOW UP Technique: Single frontal view of the chest was obtained Comparison: None FINDINGS: Lines and Tubes: Bilateral interstitial prominence. Decreased opacities in the right upper and right lower lung zone. Lungs: No focal consolidation. Pleura: No effusion. No pneumothorax. Cardiomediastinal contours: Stable cardiomegaly. Bones: No acute osseous abnormality. IMPRESSION: 1. Improved aeration in the right upper and right lower lung zones. 2. Cardiomegaly.
[2024-11-07 05:53] LABS: Chloride 105 mmol/L (98-107); Potassium 4.7 mmol/L (3.5-5.1); Sodium 139 mmol/L (136-145)
[2024-11-07 05:54] LABS: Anion Gap 5 (5-15); Calcium 9.5 mg/dL (8.7-10.4); Carbon Dioxide 29 mmol/L (20-31)
[2024-11-07 05:57] LABS: Basophils # (auto) 0 10 ^3/uL (0-0.2); Eosinophils # (auto) 0 10 ^3/uL (0-0.8); Monocytes # (auto) 0.5 10 ^3/uL (0-1.3); Platelet Count (auto) 387 10^3/uL (140-450); Red Blood Cells 4.12 10^6/uL (4.0-5.20)
[2024-11-07 05:59] LABS: BUN/Creatinine Ratio 20.5 (10.0-20.0); Blood Urea Nitrogen 17 mg/dL (9-23); Glucose 149 mg/dL (74-106); Hematocrit 34.2 % (36.0-46.0); Hemoglobin 10.7 g/dL (12.2-16.2); Lymphocytes # (auto) 0.5 10 ^3/uL (0.4-5.4); Lymphocytes % (auto) 2.1 % (10.0-50.0); Mean Corpuscular Hemoglobin 26.1 pg (28.0-32.0); Mean Corpuscular Hgb Conc. 31.4 g/dL (32.0-36.0); Monocytes % (auto) 2.3 % (0.0-12.0); Neutrophils # (auto) 20.4 10 ^3/uL (1.6-8.6); Neutrophils % (auto) 95.6 % (37.0-80.0); Red Cell Distribution Width 16.3 % (11.8-14.3); White Blood Cell 21.3 10^3/uL (4.4-10.8)
--- NOTE | 2024-11-07 12:13 | DVHINCON2 ---
Date of service: Nov 06, 2024 Allergies: Coded Allergies: NO KNOWN ALLERGIES (Unverified , 11/05/24) Home Meds Active Scripts Pantoprazole Sodium Sesquihydr (Pantoprazole Sodium) 40 Mg Tab, 40 MG PO DAILY@BREAKFAST, #30 TAB Prov:STEPHANIE MCCABE MD 11/07/24 Cefdinir (Cefdinir) 300 Mg Cap, 1 CAP PO BID, #20 CAP Prov:STEPHANIE MCCABE MD 11/07/24 Sulfamethoxazole W/Trimethopri (Bactrim Ds Tablet) 1 Tab Tb, 1 TAB PO BID, #14 TAB Prov:STEPHANIE MCCABE MD 11/07/24 Apixaban Base (ELIQUIS) 5 Mg Tab, 5 MG PO BID, #90 TAB Prov:STEPHANIE MCCABE MD 11/07/24 Sacubitril-Valsartan (Entresto 15-16 mg) 1 Cap Cap, 1 CAP PO QPM, #30 CAP Prov:STEPHANIE MCCABE MD 11/07/24 Carvedilol (Carvedilol) 3.125 Mg Tab, 1 TAB PO BID, #60 TAB 3 Refills Prov:STEPHANIE MCCABE MD 11/07/24 Current Medications Current Medications Medications (Trade) Dose Ordered Sig/Nevaeh Route PRN Reason Start Time Stop Time Status Last Admin Carvedilol (Coreg Tablet) 3.125 mg Q12HR PO 11/06/24 22:00 11/07/24 09:29 Vital Signs Vital Signs Date Time Temp Pulse Resp B/P (MAP) Pulse Ox O2 Delivery O2 Flow Rate FiO2 11/07/24 09:29 89 108/72 11/07/24 06:45 27 95 11/07/24 06:28 Nasal Cannula 3.0 11/07/24 06:28 32 11/07/24 04:00 98.0 98.0 Labs/Diagnostic Data Labs Test 11/07/24 05:11 11/05/24 22:00 11/05/24 08:06 11/05/24 06:30 Range/Units White Blood Count 21.3 #H 4.4-10.8 10^3/uL Red Blood Count 4.12 4.0-5.20 10^6/uL Hemoglobin 10.7 L 12.2-16.2 g/dL Hematocrit 34.2 L 36.0-46.0 % Mean Corpuscular Volume 83.0 80.0-100.0 fL Mean Corpuscular Hemoglobin 26.1 L 28.0-32.0 pg Mean Corpuscular Hemoglobin Concent 31.4 L 32.0-36.0 g/dL Red Cell Distribution Width 16.3 H 11.8-14.3 % Platelet Count 387 140-450 10^3/uL Mean Platelet Volume 10.1 6.9-10.8 fL Neutrophils (%) (Auto) 95.6 H 37.0-80.0 % Lymphocytes (%) (Auto) 2.1 L 10.0-50.0 % Monocytes (%) (Auto) 2.3 0.0-12.0 % Eosinophils (%) (Auto) 0.0 0.0-7.0 % Basophils (%) (Auto) 0.0 0.0-2.0 % Neutrophils # (Auto) 20.4 H 1.6-8.6 10 ^3/uL Lymphocytes # (Auto) 0.5 0.4-5.4 10 ^3/uL Monocytes # (Auto) 0.5 0-1.3 10 ^3/uL Eosinophils # (Auto) 0 0-0.8 10 ^3/uL Basophils # (Auto) 0 0-0.2 10 ^3/uL Nucleated Red Blood Cells 0.0 % Sodium Level 139 136-145 mmol/L Potassium Level 4.7 3.5-5.1 mmol/L Chloride Level 105 98-107 mmol/L Carbon Dioxide Level 29 20-31 mmol/L Anion Gap 5 5-15 Blood Urea Nitrogen 17 9-23 mg/dL Creatinine 0.83 0.550-1.02 mg/dL Glomerular Filtration Rate Calc 87 >90 mL/min BUN/Creatinine Ratio 20.5 H 10.0-20.0 Serum Glucose 149 H 74-106 mg/dL Calcium Level 9.5 8.7-10.4 mg/dL Troponin I High Sensitivity 16 </=34 ng/L Urine Opiates Screen Neg NEGATIVE Urine Fentanyl Screen Neg NEGATIVE Urine Barbiturates Screen Neg NEGATIVE Urine Phencyclidine Screen Neg NEGATIVE Urine Amphetamines Screen Pos NEGATIVE Urine Benzodiazepines Screen Neg NEGATIVE Urine Cocaine Screen Neg NEGATIVE Urine Cannabinoids Screen Neg NEGATIVE Prothrombin Time 13.3 H 9.3-11.8 sec Prothrombin Time INR 1.29 H 0.9-1.15 Activated Partial Thromboplast Time 23.2 L 24.5-34.5 SEC Lactic Acid Level 1.7 0.4-2.0 mmol/L HIV (1&2) Antibody Negative Negative Microbiology Date/Time Source Procedure Growth Status 11/06/24 03:28 Nose MRSA Screen - Final Complete 11/05/24 06:30 Blood Blood Culture - Preliminary NO GROWTH AFTER 48 HOURS OF INCUBATION. Resulted Problems(with codes): (1) Multifocal lung consolidation (2) DVT (deep venous thrombosis) (3) Shortness of breath Plan/Recommendation ASSESSMENT AND PLAN: ID Problem List: - Chest pain - Shortness of breath - Pulmonary nodules/infiltrates, abnormal CTA - Left lower extremity deep vein thrombosis (DVT), history - Smoking, active amphetamine use - Homelessness Assessment: Breanna Ramey is a 49-year-old female with a history of left lower extremity deep vein thrombosis and pneumonia, presenting with chest pain and shortness of breath, symptoms worsening for one month. She is a partial historian. Notable s ocial history includes being currently homeless, tobacco use (half a pack daily), and amphetamine use. No history of recent travel except for a weekend trip to [place] months ago. Associated symptoms include cough, no hemoptysis, no weight loss, no night sweats, and occasional fevers. No recent surgeries or hospitalizations. Physical exam notable for mild diaphoresis, shortness of breath with conversation, and scattered rhonchi in the lungs. CTA chest negative for pulmonary embolism but demonstrates diffuse pulmonary abnormalities with multiple ill-defined pulmonary nodules, crazy paving, small right pleural effusion, and cardiomegaly. Differential diagnosis includes pulmonary alveolar proteinosis, infectious pneumonia (Pneumocystis jirovecii, bacterial, other atypical), organizing pneumonia, and less likely malignancy. Lymphadenopathy (likely reactive) present. Laboratory results reviewed (see below). IV antibiotics and steroids started. Continued anticoagulation with enoxaparin/Lovenox due to history of DVT. Plan: - Continue IV antibiotic therapy (vancomycin and ceftriaxone as started) - Continue steroids - Pulmonary consult for further evaluation, with consideration of bronchoscopy, advanced imaging, and further infectious/inflammatory workup as indicated - Anticoagulation: Continue Lovenox for DVT; decision regarding resumption or change to apixaban/Eliquis deferred to primary team - Infectious workup: Screen for HIV, viral hepatitis, tuberculosis (QuantiFERON TB Gold), cocci, legionella, aspergillus, respiratory viruses (influenza, COVID- 19, RSV). Obtain blood and sputum cultures and procalcitonin - Monitor respiratory status and adjust treatment based on evolving findings and clinical response - Social work consult for homelessness - Smoking and substance use counseling as appropriate - Monitor laboratory results and imaging - Plan subject to change pending new diagnostic information Assessment and plan were discussed with the patient as written above. Plan is subject to change pending incorporation of new incoming information/diagnostics. Updates may be added as addendum at the bottom (OR TOP) of this note. Thank you for the consult. Will continue to follow. Please contact if any concerns arise. Piero Figueroa M.D. History: The patient's chart and medications were reviewed in detail and the patient was seen and examined. History obtained from patient (partial historian). Breanna Ramey is a 49-year-old female with history of left lower extremity DVT and pneumonia, presenting with one month of worsening shortness of breath and chest pain. She reports cough, no hemoptysis, no weight loss, no night sweats, occasional fevers, and no recent travel except to [place] months prior. No rece nt surgeries or hospitalizations. Review of Systems: A complete 10-system review of systems was completed and negative except as noted in the HPI or here. - CONSTITUTIONAL: Occasional fevers. Denies weight loss, night sweats. - HEENT: Not specifically discussed. - RESPIRATORY: Positive for shortness of breath and cough. Denies hemoptysis. - CARDIOVASCULAR: Chest pain present. Denies palpitations. - GI: Denies diarrhea. - : Not discussed. - MSK: Not discussed. - SKIN: Not discussed. - NEUROLOGICAL: Not discussed. - PSYCHIATRIC: Not discussed. Past Medical History: - Left lower extremity deep vein thrombosis - Pneumonia Past Surgical History: Not discussed. Home Medications: - Eliquis (apixaban) (dose/frequency not specified; patient on prior to admission) - No additional home medications discussed. Allergies: Not discussed. Family History: Not discussed. Social History: - Homeless - Smokes half a pack per day - Amphetamine use - No recent travel except to [place] several months ago Objective: Vital Signs on Arrival: Temp: 98.1 F BP: 124/86 mmHg Pulse: 118 Respiratory rate: 26 SpO2: 96% on room air Laboratory Data: - WBC: 3.91 x10^3/uL - Sodium: 135 mmol/L - BUN: 8 mg/dL - Creatinine: 0.83 mg/dL - GFR: 87 mL/min/1.73m^2 - Macan: 6.6 (unclear parameter; unable to verify) - Involvement: 10.8 (unclear parameter; unable to verify) Admission Weight: Not discussed. Physical Exam: General: NAD, mildly diaphoretic Neck: Supple. No masses. HEENT: PERRL. Normal lids and conjunctiva. Moist mucous membranes. Oropharynx without lesions, exudates or excessive erythema. Normal appearance of the external aspects of the nose and ears. Heart: Regular rhythm, normal rate. No murmur. No lower extremity edema. Lungs: Normal respiratory effort. Scattered rhonchi. Short of breath on conversation. No wheezes. No crackles. Abdomen: Soft. Non-tender. Non-distended. No masses or abdominal hernia. Msk: No digital cyanosis. Normal strength and tone in all 4 limbs Skin: Warm and dry, no rashes. Neuro: Alert. No facial droop or slurred speech. Extra-ocular movements intact. Sensation intact to soft touch in all 4 limbs. Psych: Appropriate mood. Full affect. Oriented to person, place, time, and situation. Lines: Not discussed. Diagnostic Studies: CTA Chest: - Diffuse pulmonary abnormality with multiple ill-defined pulmonary nodules, crazy paving - Small right pleural effusion, cardiomegaly - No pulmonary embolism - Lymphadenopathy likely reactive Pertinent Imaging: CTA Chest (as above; no other imaging discussed) Labs: See above under Laboratory Data. Assessment and Plan: (See section above) Isolation Precautions: Not discussed. Plan discussed with: Patient PIERO FIGUEROA MD Nov 07, 2024 12:13
--- NOTE | 2024-11-07 12:13 | DVHPN2 ---
Progress Note Date Seen: Nov 07, 2024 Has the PT tested + for MRSA If YES, has PT been informed?: No Medical Necessity Reason Pt with a Central, PICC or Fol: No Subjective Patient reports: Feels better Other Systems: pcp pna Objective vital signs Vital Sign Date Time Temp Pulse Resp B/P (MAP) Pulse Ox O2 Delivery O2 Flow Rate FiO2 11/07/24 09:29 89 108/72 11/07/24 06:45 27 95 11/07/24 06:28 Nasal Cannula 3.0 11/07/24 06:28 32 11/07/24 04:00 98.0 98.0 Total Intake and Output 11/06/24 11/06/24 11/07/24 15:00 23:00 07:00 Intake Total 100 ml 240 ml Balance 100 ml 240 ml medications Current Medications Medications Dose Ordered Sig/Nevaeh Route Start Time Stop Time Status Last Admin Dose Admin Methylprednisolone Sodium Succinate 40 mg Q6HR IV 11/05/24 06:00 11/07/24 05:35 40 MG Doxycycline Hyclate 100 ml @ 50 mls/hr BID IV 11/05/24 10:00 11/07/24 09:28 50 MLS/HR Ondansetron HCl 4 mg Q6HPRN PRN IV 11/05/24 05:30 Acetaminophen 650 mg Q6HPRN PRN PO 11/05/24 05:30 Acetaminophen/ Hydrocodone Bitart 1 tab Q6HPRN PRN PO 11/05/24 05:30 11/06/24 19:31 1 TAB Enoxaparin Sodium 70 mg Q12HR SC 11/05/24 10:00 11/07/24 09:30 70 MG Furosemide 40 mg BIDD IV 11/05/24 14:15 11/07/24 05:36 40 MG Ipratropium [place] 0.5 mg Q4HR PRN NEB 11/06/24 00:00 Carvedilol 3.125 mg Q12HR PO 11/06/24 22:00 11/07/24 09:29 3.125 MG Examination: GENERAL:Abnormal, HEENT:Abnormal, LUNGS:Abnormal, CVS:Abnormal, ABDOMEN:Abnormal laboratory and microbiology Laboratory Tests 11/07/24 05:11 Test 11/07/24 05:11 Range/Units Serum Glucose 149 H 74-106 mg/dL Microbiology Date/Time Source Procedure Growth Status 11/06/24 03:28 Nose MRSA Screen - Final Complete 11/05/24 06:30 Blood Blood Culture - Preliminary NO GROWTH AFTER 48 HOURS OF INCUBATION. Resulted Problem List/Assessment/Plan Problem List/Assessment/Plan DVT pulm pna r/o pcp severe chf diureseing well on RA cont lovenox cont coreg HR well controlled Plan discussed with: Patient Date of Service: Nov 07, 2024 Billing Provider: BRAYDEN TRUONG MD Common Visit Codes: NOT BILLABLE BRAYDEN TRUONG MD Nov 07, 2024 12:13
[2024-11-07] MEDS ORDERED: PANT40T PO (14:05)
[2024-11-07] MEDS ORDERED: APIX5TAB PO (14:05)
[2024-11-07] MEDS ORDERED: CARV3.1240 PO (14:05)
[2024-11-07] MEDS ORDERED: BACDST PO (14:05)
[2024-11-07] MEDS ORDERED: SACU1CAP2 PO (14:05)
[2024-11-07] MEDS ORDERED: CEFD300C2 PO (14:05)
--- NOTE | 2024-11-07 14:08 | DVHDS2 ---
Discharge Summary Date of Admission November 05, 2024 at 05:28 Date of Discharge: Nov 07, 2024 Labs/Diagnostic Data: Laboratory Results Test 11/07/24 13:07 11/07/24 05:11 11/05/24 22:00 11/05/24 08:06 White Blood Count 21.3 10^3/uL (4.4-10.8) Red Blood Count 4.12 10^6/uL (4.0-5.20) Hemoglobin 10.7 g/dL (12.2-16.2) Hematocrit 34.2 % (36.0-46.0) Mean Corpuscular Volume 83.0 fL (80.0-100.0) Mean Corpuscular Hemoglobin 26.1 pg (28.0-32.0) Mean Corpuscular Hemoglobin Concent 31.4 g/dL (32.0-36.0) Red Cell Distribution Width 16.3 % (11.8-14.3) Platelet Count 387 10^3/uL (140-450) Mean Platelet Volume 10.1 fL (6.9-10.8) Neutrophils (%) (Auto) 95.6 % (37.0-80.0) Lymphocytes (%) (Auto) 2.1 % (10.0-50.0) Monocytes (%) (Auto) 2.3 % (0.0-12.0) Eosinophils (%) (Auto) 0.0 % (0.0-7.0) Basophils (%) (Auto) 0.0 % (0.0-2.0) Neutrophils # (Auto) 20.4 10 ^3/uL (1.6-8.6) Lymphocytes # (Auto) 0.5 10 ^3/uL (0.4-5.4) Monocytes # (Auto) 0.5 10 ^3/uL (0-1.3) Eosinophils # (Auto) 0 10 ^3/uL (0-0.8) Basophils # (Auto) 0 10 ^3/uL (0-0.2) Nucleated Red Blood Cells 0.0 % Sodium Level 139 mmol/L (136-145) Potassium Level 4.7 mmol/L (3.5-5.1) Chloride Level 105 mmol/L (98-107) Carbon Dioxide Level 29 mmol/L (20-31) Anion Gap 5 (5-15) Blood Urea Nitrogen 17 mg/dL (9-23) Creatinine 0.83 mg/dL (0.550-1.02) Glomerular Filtration Rate Calc 87 mL/min (>90) BUN/Creatinine Ratio 20.5 (10.0-20.0) Serum Glucose 149 mg/dL (74-106) Calcium Level 9.5 mg/dL (8.7-10.4) Troponin I High Sensitivity 16 ng/L (</=34) Urine Opiates Screen Neg (NEGATIVE) Urine Fentanyl Screen Neg (NEGATIVE) Urine Barbiturates Screen Neg (NEGATIVE) Urine Phencyclidine Screen Neg (NEGATIVE) Urine Amphetamines Screen Pos (NEGATIVE) Urine Benzodiazepines Screen Neg (NEGATIVE) Urine Cocaine Screen Neg (NEGATIVE) Urine Cannabinoids Screen Neg (NEGATIVE) Test 11/05/24 06:30 Prothrombin Time 13.3 sec (9.3-11.8) Prothrombin Time INR 1.29 (0.9-1.15) Activated Partial Thromboplast Time 23.2 SEC (24.5-34.5) Lactic Acid Level 1.7 mmol/L (0.4-2.0) HIV (1&2) Antibody Negative (Negative) Other Laboratory Tests 11/07/24 05:11 Brief Hx & Hospital Course: Mrs. Breanna Ramey is a 49-year-old female with a recent history of LLE DVT, Pneumonia seen and treated at [facility] with chest pain and shortness of breath. Patient is a poor historian. Patient was started on Eliquis. Patient states 12 hours ago, she started experiencing chest pains and shortness a breath, persisted and worsened. Patient CTA chest resulted : 1. Diffuse pulmonary abnormality with multiple ill-defined pulmonary nodules, cavitary type lesions and crazy paving. Differential considerations are broad including protein alveolar proteinosis, pneumonia such as pneumocystis jiroveci, organizing pneumonia, least likely malignancy given appearance. 2. Mediastinal adenopathy, likely reactive 3. Small right pleural effusion 4. Cardiomegaly 5. No evidence of pulmonary embolism. Patient admitted for further evaluation and treatment. She is admitted and evaluated by special equipment technician and boiler repair supervisor. Patient once again counseled and educated regarding her methamphetamine misuse and advised to seek help with the rehab programs. In the hospital she is treated with the antibiotics as well as cardiac medication including diuretics. Patient had echocardiogram showed a very poor ejection fraction about 15%. Winona a pop release due to her chronic methamphetamine use and advised to stop it. Patient also told the risks of sudden cardiac arrhythmia and sudden due to her poor EF and continue use of methamphetamines. While in the hospital patient is oxygenating normally on room air. She is afebrile. She is stable. Therefore it is felt she could be safely discharged home with continued outpatient treatment with the oral antibiotics and cardiac medications as prescribed. Patient is also counseled regarding heart failure and advised to restrict her oral fluid intake to 1200 mL per 24 hours at home. She is advised to be compliant with her medications and have a close follow up with her primary care physician and consultants. I have talked with the patient regarding her hospital diagnosis, treatment she received, discharge medications, discharge instructions and follow-up plan of care. She has verbalized understanding of these and agree with the care plan as outlined. Operations or Procedures APPROVED REPORT EXAM: Two-dimensional and M-mode echocardiogram with Doppler, color Doppler, bubble study and Optison. Blood Pressure: 124/84 mmHg INDICATION Chest Pain Tachycardia RISK FACTORS Height: 5' 8", Weight: 158 DIMENSIONS LVDd 5.9 (3.8-5.7cm) LA (2D) 4.7 (1.9-4.0cm) Aortic Root 2.8 (2.0- 3.7cm) LVDs 5.7 (2.5-4.0cm) LA (MM) (1.9-4.0cm) Aortic Cusp Exc 1.4 (1.5- 2.0cm) EF (%) 7.0 (55-70%) Rt. Atrium 5.0 (1.9-4.0cm) Asc. Aorta cm IVSd 0.8 (0.7-1.1cm) RV (D) (1.8-2.4cm) PWd 1.1 (0.7-1.1cm) Mitral Valve Mitral Mitral Stenosis E wave 1.50m/s MV Mean GR. mmHg E/A ratio 0.0 2D MVA cm2 Aortic Valve Aortic Valve Aortic Stenosis V1 0.50m/s AO Mean GR. 7mmHg V2 1.70m/s AO Peak GR. 12mmHg AI P 1/2 Time 597.70ms Pulmonic Valve V2 0.40m/s Tricuspid Valve TR Velocity 2.70m/s RVSP 44mmHg Conclusion lvef 10% by visual estimate severe dilated LV end stage cardimyopathy RV dysfunction bubble study is negative for R to L shunting moderate mitral regurg severe tricuspd regurg SIGNED BY: BRAYDEN TRUONG MD SIGNED DATE/TIME: 11/05/24 4684 Condition at Discharge: Stable Final Diagnosis/Problems List Pneumonia, methamphetamine misuse disorder, congestive cardiomyopathy EF 10%, acute on chronic congestive heart failure with a biventricular dysfunction Discharge Disposition: Home Discharge Instruct/Medications Diet: Consistent carbohydrate, Cardiac 2g Na,low cholest Diet comment: To restrict your oral fluid intake to 1200 mL per 24 hours Activity: No Restrictions, As Tolerated Follow Up/Referral: Your primary care physician in two weeks for referrals to drug rehab programs. Dr. Truong boiler repair supervisor in the office after two weeks for management of your cardiomyopathy. Dr. Davis lung doctor in the office after two weeks for management of your pneumonia. Medications: As prescribed per discharge med reconciliation list New Medications: Apixaban Base (Eliquis) 5 Mg Tab 5 MG PO BID, #90 TAB Carvedilol (Carvedilol) 3.125 Mg Tab 1 TAB PO BID, #60 TAB 3 Refills Cefdinir (Cefdinir) 300 Mg Cap 1 CAP PO BID, #20 CAP Pantoprazole Sodium Sesquihydr (Pantoprazole Sodium) 40 Mg Tab 40 MG PO DAILY@BREAKFAST, #30 TAB Sacubitril-Valsartan (Entresto 15-16 mg) 1 Cap Cap 1 CAP PO QPM, #30 CAP Sulfamethoxazole W/Trimethopri (Bactrim Ds Tablet) 1 Tab Tb 1 TAB PO BID, #14 TAB Discharge Statement: "Patient was advised to return to the ER or call 911 if any headaches, dizziness, shortness of breath, chest pain, abdominal pain, bleeding, fevers, or worsening of medical condition. Patient was counseled about treatment plan, medications, possible side effects, patientverbalized understanding. All questions were answered to the best of my ability. This discharge took greater then 30 minutes in planning, reviewing documentation, counseling the patient, and discussing with other team members." ASSESSMENT ASSESSMENT Assessment Pneumonia, methamphetamine misuse disorder, congestive cardiomyopathy EF 10%, acute on chronic congestive heart failure with a biventricular dysfunction GANAPAVARAPU,STEPHANIE MD Nov 07, 2024 14:07
--- NOTE | 2024-11-07 19:38 | DVHPN2 ---
Progress Note - Dictate Date Seen: Nov 07, 2024 Has the PT tested + for MRSA If YES, has PT been informed?: No Medical Necessity Reason Pt with a Central, PICC or Fol: No Subjective Patient seen and examined at bedside. Breathing comfortably on room air. Overnight events reviewed. vital signs Vital Sign Date Time Temp Pulse Resp B/P (MAP) Pulse Ox O2 Delivery O2 Flow Rate FiO2 11/07/24 17:00 93 15 109/75 (86) 96 11/07/24 16:00 Room Air* 0 21 11/07/24 16:00 97.9 97.9 Total Intake and Output 11/06/24 11/06/24 11/07/24 15:00 23:00 07:00 Intake Total 100 ml 240 ml Balance 100 ml 240 ml objective Gen.: Patient lying in bed in no apparent distress. Breathing on room air. Head: Normocephalic, atraumatic. Eyes: EOMI/PERRLA. Ears: Normal hearing. Normal anatomy. Neck/trachea: Trachea midline, supple. Nose: Normal external anatomy. Mouth: Moist mucous membranes. Chest: Decreased air entry bilaterally. No wheezing or rhonchi. Cardiovascular: Positive S1, positive S2. Regular rate and rhythm. Abdomen: Positive bowel sounds in all 4 quadrants. Soft, non-tender, non- distended. : Deferred. Rectal: Deferred. Skin: Warm, dry. Intact. Extremities: 2+ radial pulses bilaterally. No lower extremity edema. Neuro: Awake, alert, oriented x3. No gross motor or sensory deficits. Cranial nerves II through XII intact. Gait not assessed. laboratory and microbiology Laboratory Tests 11/07/24 05:11 Test 11/07/24 05:11 Range/Units Serum Glucose 149 H 74-106 mg/dL Assessment/Plan Impression: Pneumonia Lung cavities Acute hypoxemic respiratory failure, resolved. Pulmonary hypertension Methamphetamine use. Events: Patient seen on room air No distress Supplemental oxygen PRN Complete antibiotics Transition to NOAC. Patient is stable for discharge from the pulmonary standpoint. Follow up in Pulmonary Clinic in 1 to 2 weeks Labs and imaging reviewed CT angiogram reviewed no evidence of PE. Bilateral nodules; multiple cavitary lesions HIV negative. Plan: Supportive care Supplemental oxygen PRN Titrate to keep O2 sats above 92%. Bronchodilators Broad-spectrum antibiotics F/u on cx Echocardiogram GI and DVT prophylaxis Prognosis: Guarded given patient's multiple co-morbidities. Rest of plan per hospitalist and other consultants. Thank you, JOHANNY Watt, for allowing me to participate in this patient's care. Further recommendations will depend on the patient's clinical course. Please do not hesitate to contact me if you have any questions or concerns. This medical document was created using an electronic medical record system with [employer] dictation system. Although these documentations are being carefully reviewed, there may still be some phonetic and typographical changes. The errors are purely typographical, due to imperfection on the software program, and do not reflect any compromise in the patient's medical care. Plan discussed with: Patient, Other (RN) GLENIS EARLY MD Nov 07, 2024 19:37
[2024-11-07] MEDS ORDERED: DOXYCYCLINE 100 MG TAB/CAP PO SCH (22:00)
[2024-11-08] MEDS ORDERED: cefTRIAXone 2GM/50ML D5W 50 ML IV SCH (10:00)
--- NOTE | 2024-11-08 15:34 | DVHPN2 ---
Consult Progress Note Date Seen: Nov 07, 2024 Subjective Patient reports: Other (remains on room air , still SOB upon conversation , cough is somewhat improved . Has scattered rhonki in lungs and appears weak ) Objective vital signs Vital Sign Date Time Temp Pulse Resp B/P (MAP) Pulse Ox O2 Delivery O2 Flow Rate FiO2 11/07/24 17:00 93 15 109/75 (86) 96 11/07/24 16:00 Room Air* 0 21 11/07/24 16:00 97.9 97.9 Total Intake and Output 11/07/24 11/07/24 11/08/24 15:00 23:00 07:00 Intake Total 100 ml 884 ml Output Total 2350 ml Balance 100 ml -1466 ml medications Physical Exam: General: NAD, mildly diaphoretic Neck: Supple. No masses. HEENT: PERRL. Normal lids and conjunctiva. Moist mucous membranes. Oropharynx without lesions, exudates or excessive erythema. Normal appearance of the external aspects of the nose and ears. Heart: Regular rhythm, normal rate. No murmur. No lower extremity edema. Lungs: Normal respiratory effort. Scattered rhonchi. Short of breath on conversation. No wheezes. No crackles. Abdomen: Soft. Non-tender. Non-distended. No masses or abdominal hernia. Msk: No digital cyanosis. Normal strength and tone in all 4 limbs Skin: Warm and dry, no rashes. Neuro: Alert. No facial droop or slurred speech. Extra-ocular movements intact. Sensation intact to soft touch in all 4 limbs. Psych: Appropriate mood. Full affect. Oriented to person, place, time, and situation. laboratory and microbiology Laboratory Tests 11/07/24 05:11 Test 11/07/24 05:11 Range/Units Serum Glucose 149 H 74-106 mg/dL Problem List/Assessment/Plan Problems(with codes): (1) Chest pain (2) Pulmonary nodule (3) Multifocal lung consolidation (4) DVT (deep venous thrombosis) (5) Shortness of breath Problem List/Assessment/Plan ID Problem List: - Chest pain - Shortness of breath - Pulmonary nodules/infiltrates, abnormal CTA - Left lower extremity deep vein thrombosis (DVT), history - Smoking, active amphetamine use - Homelessness Assessment: Breanna Ramey is a 49-year-old female with a history of left lower extremity deep vein thrombosis and pneumonia, presenting with chest pain and shortness of breath, symptoms worsening for one month. She is a partial historian. Notable social history includes being currently homeless, tobacco use (half a pack daily), and amphetamine use. No history of recent travel except for a weekend trip to [place] months ago. Associated symptoms include cough, no hemoptysis, no weight loss, no night sweats, and occasional fevers. No recent surgeries or hospitalizations. Physical exam notable for mild diaphoresis, shortness of breath with conversation, and scattered rhonchi in the lungs. CTA chest negative for pulmonary embolism but demonstrates diffuse pulmonary abnormalities with multiple ill-defined pulmonary nodules, crazy paving, small right pleural effusion, and cardiomegaly. Differential diagnosis includes pulmonary alveolar proteinosis, infectious pneumonia (Pneumocystis jirovecii, bacterial, other atypical), organizing pneumonia, and less likely malignancy. Lymphadenopathy (likely reactive) present. Laboratory results reviewed (see below). IV antibiotics and steroids started. Continued anticoagulation with enoxaparin/Lovenox due to history of DVT. 11/07: whitecount elevated to 25 likely due to steroid use . HIV test is negative Plan: - likely if there is an infectious etiology to patients pneumonia it is likely an indolench infection that will slowly progress such as a fungal pneumonia or non TB Microbacterium - follow up on serologies - pursue additional infectious disease workups as outpatient - recommend patient be discharged on 5 days levofloxacin 500mg daily - defer to coagulation treatment upon discharge to primary care team - follow up with infectious disease and pulmonology in 2 weeks to further evaluate patients pneumonia and continue work up for chronic SOB - Continue IV antibiotic therapy (vancomycin and ceftriaxone as started) - Continue steroids - Pulmonary consult for further evaluation, with consideration of bronchoscopy, advanced imaging, and further infectious/inflammatory workup as indicated - Anticoagulation: Continue Lovenox for DVT; decision regarding resumption or change to apixaban/Eliquis deferred to primary team - Infectious workup: Screen for HIV, viral hepatitis, tuberculosis (QuantiFERON TB Gold), cocci, legionella, aspergillus, respiratory viruses (influenza, COVID- 19, RSV). Obtain blood and sputum cultures and procalcitonin - Monitor respiratory status and adjust treatment based on evolving findings and clinical response - Social work consult for homelessness - Smoking and substance use counseling as appropriate - Monitor laboratory results and imaging - Plan subject to change pending new diagnostic information Plan discussed with: Other PIERO WOODS MD Nov 08, 2024 15:34
[2024-11-08] MEDS ORDERED: METO25TA93 PO (22:51)
[2024-11-10 17:07] LABS: Coccidioides CF Antibody <1:2 (<1:2)
== END 2024-11-07 18:40 | disposition home or self-care (01) | DRG 133 ==
LOC: EDBD 21:57 → ER 21:57 → OVERFLOW 11-05 05:28 → DOU IN ICU 11-05 06:02
PROVIDERS: ADMIT Nurse Practitioner Family; ATTEND Nurse Practitioner Family
DX: J96.01 Acute respiratory failure with hypoxia (principal); I50.23 Acute on chronic systolic (congestive) heart failure; J15.69 Pneumonia due to other Gram-negative bacteria; B59 Pneumocystosis; I82.412 Acute embolism and thrombosis of left femoral vein; J15.9 Unspecified bacterial pneumonia; I27.20 Pulmonary hypertension, unspecified; I42.0 Dilated cardiomyopathy; I44.7 Left bundle-branch block, unspecified; F15.10 Other stimulant abuse, uncomplicated; I82.442 Acute embolism and thrombosis of left tibial vein; F17.210 Nicotine dependence, cigarettes, uncomplicated; I82.432 Acute embolism and thrombosis of left popliteal vein; I34.0 Nonrheumatic mitral (valve) insufficiency; I35.0 Nonrheumatic aortic (valve) stenosis; J44.9 Chronic obstructive pulmonary disease, unspecified; Z59.00 Homelessness unspecified; Z78.9 Other specified health status; Z79.01 Long term (current) use of anticoagulants
CPT/HCPCS: 36415; 71045; 71046; 71275; 80048; 80307; 83605; 84484; 85025; 85610; 85730; 86606; 86635; 86703; 87040; 87081; 93005; 93306; 93971; 94640; 96361; 96365; 99291; G0378; J0692; J2470; Q9956

== ENCOUNTER 2024-11-08 17:51 | Inpatient (IN) | payer MEDICAID ==
[~2024-11-08] VITALS: Ht 165.1 cm; Wt 67.2 kg
[~2024-11-08 17:51] MED LIST: APIX5TAB PO; BACDST PO; CARV3.1240 PO; CEFD300C2 PO; PANT40T PO; SACU1CAP2 PO
--- NOTE | 2024-11-08 18:10 | ED.PDOC ---
History of Present Illness HPI Comments 49-year-old female with a history of congestive heart failure was admitted and just released yesterday from [facility] now returns by ambulance complaining of some shortness of breath that gets worse with any kind of exertion Time Seen by MD: 17:52 Allergies: Coded Allergies: NO KNOWN ALLERGIES (Unverified , 11/05/24) Home Meds Active Scripts Pantoprazole Sodium Sesquihydr (Pantoprazole Sodium) 40 Mg Tab, 40 MG PO DAILY@BREAKFAST, #30 TAB Prov:STEPHANIE MCCABE MD 11/07/24 Cefdinir (Cefdinir) 300 Mg Cap, 1 CAP PO BID, #20 CAP Prov:STEPHANIE MCCABE MD 11/07/24 Sulfamethoxazole W/Trimethopri (Bactrim Ds Tablet) 1 Tab Tb, 1 TAB PO BID, #14 TAB Prov:STEPHANIE MCCABE MD 11/07/24 Apixaban Base (ELIQUIS) 5 Mg Tab, 5 MG PO BID, #90 TAB Prov:STEPHANIE MCCABE MD 11/07/24 Sacubitril-Valsartan (Entresto 15-16 mg) 1 Cap Cap, 1 CAP PO QPM, #30 CAP Prov:STEPHANIE MCCABE MD 11/07/24 Carvedilol (Carvedilol) 3.125 Mg Tab, 1 TAB PO BID, #60 TAB 3 Refills Prov:STEPHANIE MCCABE MD 11/07/24 Information Source: Patient, Emergency Med Personnel Mode of Arrival: EMS Severity: Moderate Timing: Days Duration: Since onset Past Medical History PAST MEDICAL HISTORY: CAD, CHF, HTN Surgical History: Denies all surgeries [employer] History: Denies all [employer] REPA[employer]ER Hx Family History Family History: Reviewed,noncontributory to illness Social History Smoker: Non-Smoker Alcohol: Denies ETOH Use Drugs: Denies Drug Use Lives In: Home Constitutional: reports: fatigue, malaise Respiratory: reports: orthopnea, SOB at rest, shortness of breath, SOB with excertion All Other Systems: Reviewed and Negative Physical Exam General Appearance: Mild Distress HEENT: Normal ENT Inspection, Pharynx Normal, TMs Normal Neck: Full Range of Motion, Non-Tender, Normal, Normal Inspection Respiratory: Rales, Respiratory Distress Cardiovascular: No Edema, No JVD, No Murmur, No Gallop, Normal Peripheral Pulses, Regular Rate/Rhythm Breast Exam: Deferred Gastrointestinal: No Organomegaly, Non Tender, No Pulsatile Mass, Normal Bowel Sounds, Soft Genitalia: Deferred Pelvic: Deferred Rectal: Deferred Extremities: No calf tenderness, Normal capillary refill, Normal inspection, Normal range of motion, Non-tender, No pedal edema Musculoskeletal : Apperance: Normal Neurologic: Alert, ore charger II-XII nml as Tested, No Motor Deficits, Normal Affect, Normal Mood, No Sensory Deficits Cerebellar Function: Normal Reflexes: Normal Skin: Dry, Normal Color, Warm Lymphatic: No Adenopathy Was a procedure done? Was a procedure done?: No EKG EKG : Pulse Rate (adult): 97 Cardiac Rhythm: NSR Block: LBBB Differential Dx Considerations may include: Differential diagnosis includes but is not limited to: asthma, pneumonia, congestive heart failure, pleural effusion, empyema, pulmonary embolus, and others X-Ray, Labs, Meds, VS Vital Signs Date Time Temp Pulse Resp B/P (MAP) Pulse Ox O2 Delivery O2 Flow Rate FiO2 11/08/24 18:55 128/96 11/08/24 18:46 90 22 97 Room Air* 0 21 11/08/24 18:31 98.3 96 13 128/96 (107) 95 98.3 11/08/24 18:10 97 11/08/24 18:06 99.0 97 20 130/96 (107) 97 99.0 11/08/24 17:53 97 Lab Test 11/08/24 18:16 Range/Units White Blood Count 15.6 #H 4.4-10.8 10^3/uL Red Blood Count 4.59 4.0-5.20 10^6/uL Hemoglobin 11.8 L 12.2-16.2 g/dL Hematocrit 37.8 # 36.0-46.0 % Mean Corpuscular Volume 82.3 80.0-100.0 fL Mean Corpuscular Hemoglobin 25.8 L 28.0-32.0 pg Mean Corpuscular Hemoglobin Concent 31.3 L 32.0-36.0 g/dL Red Cell Distribution Width 16.0 H 11.8-14.3 % Platelet Count 458 H 140-450 10^3/uL Mean Platelet Volume 9.8 6.9-10.8 fL Neutrophils (%) (Auto) 82.3 H 37.0-80.0 % Lymphocytes (%) (Auto) 12.4 10.0-50.0 % Monocytes (%) (Auto) 5.0 0.0-12.0 % Eosinophils (%) (Auto) 0.1 0.0-7.0 % Basophils (%) (Auto) 0.2 0.0-2.0 % Neutrophils # (Auto) 12.8 H 1.6-8.6 10 ^3/uL Lymphocytes # (Auto) 1.9 0.4-5.4 10 ^3/uL Monocytes # (Auto) 0.8 0-1.3 10 ^3/uL Eosinophils # (Auto) 0 0-0.8 10 ^3/uL Basophils # (Auto) 0 0-0.2 10 ^3/uL Nucleated Red Blood Cells 0.1 % Prothrombin Time 11.9 H 9.3-11.8 sec Prothrombin Time INR 1.14 0.9-1.15 Activated Partial Thromboplast Time 26.1 24.5-34.5 SEC Sodium Level 141 136-145 mmol/L Potassium Level 4.5 3.5-5.1 mmol/L Chloride Level 108 H 98-107 mmol/L Carbon Dioxide Level 27 20-31 mmol/L Anion Gap 6 5-15 Blood Urea Nitrogen 28 #H 9-23 mg/dL Creatinine 0.77 0.550-1.02 mg/dL Glomerular Filtration Rate Calc 96 >90 mL/min BUN/Creatinine Ratio 36.4 H 10.0-20.0 Serum Glucose 94 74-106 mg/dL Lactic Acid Level 1.4 0.4-2.0 mmol/L Calcium Level 9.6 8.7-10.4 mg/dL Total Bilirubin 0.3 0.2-1.0 mg/dL Aspartate Amino Transferase (AST) 23 13-40 U/L Alanine Aminotransferase (ALT) 29 7-40 U/L Alkaline Phosphatase 100 46-116 U/L Troponin I High Sensitivity 12 </=34 ng/L B-Type Natriuretic Peptide 2455.30 0-100 pg/mL Total Protein 7.0 5.7-8.2 g/dL Albumin 3.6 3.2-4.8 g/dL Current Medications Medications (Trade) Dose Ordered Sig/Nevaeh Route Start Time Stop Time Status Last Admin Furosemide (Lasix Injection) 40 mg ONCE ONCE IV 11/08/24 18:15 11/08/24 18:16 DC 11/08/24 18:55 Aspirin 81 mg ONCE ONCE PO 11/08/24 18:15 11/08/24 18:16 DC 11/08/24 18:55 Time of 1ST Reevaluation: 18:08 Reevaluation 1ST: Unchanged Patient Education/Counseling: Diagnosis, Treatment Family Education/Counseling: No Family Present Sepsis Sepsis Reasesment Focused Exam Orders: Laboratory Tests 11/08/24 18:16: Lactic Acid Level 1.4 Departure 1 Departure Time of Disposition: 19:25 Impression: Primary Impression: Respiratory failure with hypoxia Qualified Codes: J96.21 - Acute and chronic respiratory failure with hypoxia Additional Impressions: CHF (congestive heart failure) Intermediate coronary syndrome Consolidation of right lower lobe of lung Pneumonitis Disposition: ADMITTED INPATIENT Condition: Guarded Comments Shortness of Breath with Respiratory Distress Chief Complaint: Shortness of breath with exertion History of Present Illness: 49-year-old female presents to the emergency department via EMS with complaints of progressive shortness of breath that worsens with exertion. Patient was recently discharged yesterday from [facility]. Upon returning home, she reports her symptoms have gradually worsened today. She is currently experiencing mild to moderate respiratory distress. Review of Systems: Respiratory: Shortness of breath with exertion, respiratory distress All other systems reviewed and negative or noncontributory Past Medical History: 1. Chronic respiratory failure 2. Congestive heart failure Physical Exam: General: Patient in mild to moderate respiratory distress Lungs: Bilateral basilar rales present Lab Results: WBC: 15.6 with left shift (82% neutrophils) BNP: 2,455 Troponin: 12 (normal) BUN: 28 (elevated) Creatinine: 0.77 (normal) Imaging and Other Relevant Results: Chest X-ray: Right lower lobe consolidation, possibly representing mass or infection Medical Decision Making: Summary Statement: 49-year-old female with history of CHF presents with worsening dyspnea and respiratory distress one day after hospital discharge, found to have elevated inflammatory markers, elevated BNP, and right lower lobe consolidation. Problem List: 1. Acute on chronic respiratory failure 2. Congestive heart failure exacerbation 3. Possible pneumonia 4. Intermediate coronary syndrome Differential Diagnosis: CHF exacerbation, Community-acquired pneumonia, Pulmonary embolism, Acute coronary syndrome, Malignancy ED Course: Patient received IV Lasix, oral aspirin, and empiric antibiotics (IV Rocephin and azithromycin). Given clinical presentation and findings, admission was deemed necessary. Assessment and Plan: 1. Acute on Chronic Respiratory Failure - Admit to hospital for close monitoring and management - Continue supplemental oxygen as needed 2. Congestive Heart Failure Exacerbation - Continue IV Lasix - Monitor fluid status and daily weights - Serial BNP measurements 3. Possible Pneumonia - Continue IV Rocephin and azithromycin - Further imaging studies to evaluate RLL consolidation 4. Intermediate Coronary Syndrome - Continue aspirin - Serial troponin measurements - Cardiology consultation Billing Information: ICD-10: J96.21 - Acute on chronic respiratory failure ICD-10: I50.9 - Heart failure, unspecified ICD-10: J18.9 - Pneumonia, unspecified organism ICD-10: I25.89 - Other forms of chronic ischemic heart disease Critical Care Note Critical Care Time?: Yes (35 min-critical care time only) Critical care comment: Total critical care time: Approximately 36 minutes Due to a high probability of clinically significant, life threatening deterioration, the patient required my highest level of preparedness to intervene emergently and I personally spent this critical care time directly and personally managing the patient. This critical care time included obtaining a history; examining the patient; pulse oximetry; ordering and review of studies; arranging urgent treatment with development of a management plan; evaluation of patient's response to treatment; frequent reassessment; and, discussions with other providers. This critical care time was performed to assess and manage the high probability of imminent, life-threatening deterioration that could result in multi-organ failure. It was exclusive of separately billable procedures and treating other patients. Stability Stability form required: No Heart Score Heart Score: Heart Score Response (Comments) Value History Moderate Suspicious 1 EKG Repolarization Disturb 1 Age 45-64 1 Risk Factors >3 or Hx ASHD 2 Troponin Normal limit 0 Total 5 AVILA LYNNE MD Nov 08, 2024 18:10
[2024-11-08 18:26] LABS: Eosinophils # (auto) 0 10 ^3/uL (0-0.8); Hemoglobin 11.8 g/dL (12.2-16.2); Lymphocytes # (auto) 1.9 10 ^3/uL (0.4-5.4); Monocytes # (auto) 0.8 10 ^3/uL (0-1.3); Nucleated Red Blood Cells % 0.1 %
[2024-11-08 18:28] LABS: Basophils # (auto) 0 10 ^3/uL (0-0.2); Basophils % (auto) 0.2 % (0.0-2.0); Eosinophils % (auto) 0.1 % (0.0-7.0); Hematocrit 37.8 % (36.0-46.0); Lymphocytes % (auto) 12.4 % (10.0-50.0); Mean Corpuscular Hemoglobin 25.8 pg (28.0-32.0); Mean Corpuscular Hgb Conc. 31.3 g/dL (32.0-36.0); Mean Corpuscular Volume 82.3 fL (80.0-100.0); Neutrophils # (auto) 12.8 10 ^3/uL (1.6-8.6); Neutrophils % (auto) 82.3 % (37.0-80.0); Platelet Count (auto) 458 10^3/uL (140-450); Red Blood Cells 4.59 10^6/uL (4.0-5.20); White Blood Cell 15.6 10^3/uL (4.4-10.8)
[2024-11-08 18:41] LABS: INR 1.14 (0.9-1.15); Partial Thromboplastin Time 26.1 SEC (24.5-34.5); Prothrombin Time 11.9 sec (9.3-11.8)
[2024-11-08 18:42] LABS: Alanine Aminotransferase 29 U/L (7-40); Albumin 3.6 g/dL (3.2-4.8); Alkaline Phosphatase 100 U/L (46-116); Anion Gap 6 (5-15); Aspartate Aminotransferase 23 U/L (13-40); BUN/Creatinine Ratio 36.4 (10.0-20.0); Bilirubin, Total 0.3 mg/dL (0.2-1.0); Calcium 9.6 mg/dL (8.7-10.4); Carbon Dioxide 27 mmol/L (20-31); Glucose 94 mg/dL (74-106); Potassium 4.5 mmol/L (3.5-5.1); Sodium 141 mmol/L (136-145)
[2024-11-08 18:46] VITALS: PULSE 90; RESP 22; O2SAT 97
[2024-11-08 18:53] LABS: Blood Urea Nitrogen 28 mg/dL (9-23); Chloride 108 mmol/L (98-107)
[2024-11-08] MEDS: ASPirin 81 mg TAB PO ONE (18:55)
[2024-11-08] MEDS: FUROSEMIDE 40 MG/4 ML VIAL IV ONE (18:55)
--- NOTE | 2024-11-08 19:17 | DVH ---
EXAM: XY CHEST PORTABLE Indication: sob Technique: Single frontal view of the chest was obtained Comparison: XY CHEST PORTABLE on DOS: 11/07/24 FINDINGS: Lines and Tubes: None Lungs: Patchy right lung consolidative opacities. Pleura: No effusion. No pneumothorax. Cardiomediastinal contours: Cardiomegaly. Bones: No acute osseous abnormality. IMPRESSION: Patchy right lung masslike consolidative opacities seen on prior CT. Differential considerations incl ude infection or malignancy. Cardiomegaly.
[2024-11-08] MEDS: cefTRIAXone 1GM/50ML D5W 50 ML IV ONE (19:30)
[2024-11-08] MEDS: AZITHROMYCIN 500MG/ 250ML 250 ML IV ONE (19:30)
[2024-11-08] MEDS ORDERED: MORPHINE SULFATE INJ 2 MG/ml SYRG IV PRN (20:00)
[2024-11-08 20:07] VITALS: PULSE 90; RESP 17; O2SAT 96
[2024-11-08 22:06] VITALS: BP 123/90; PULSE 91; RESP 18; TEMP 97.4; O2SAT 96
[2024-11-08] MEDS ORDERED: METO25TA93 PO (22:51)
[2024-11-08 22:52] VITALS: BP 123/90; PULSE 96; RESP 17; TEMP 97.9; O2SAT 99
[2024-11-08 23:05] VITALS: PULSE 96; RESP 17; O2SAT 99
--- NOTE | 2024-11-08 23:32 | DVHHP2 ---
History of Present Illness Reason for Visit: Shortness of breath History of Present Illness 49-year-old female presents for evaluation of shortness for breath. Patient reports recently being discharged for exacerbation of congestive heart failure. She returns with worsening shortness for breath with associated productive cough with brown phlegm. Reports substernal chest pressure. No nausea or vomiting. No other acute complaints. Past Medical History Hypertension, CHF, CAD Past Surgical History Denies Family History Noncontributory Smoke: No ALCOHOL: none Drugs: Other (Amphetamines) Review of Systems Review of Systems Review of systems are currently negative otherwise addressed in HPI. Allergies: Coded Allergies: NO KNOWN ALLERGIES (Unverified , 11/05/24) Medications Current Medications Medications Dose Ordered Sig/Nevaeh Route Start Time Stop Time Status Last Admin Dose Admin Nitroglycerin 0.4 mg Q5MINP PRN SL 11/08/24 20:00 Morphine Sulfate 2 mg Q30M PRN IV 11/08/24 20:15 Exam Vital Signs Vital Signs Date Time Temp Pulse Resp B/P (MAP) Pulse Ox O2 Delivery O2 Flow Rate FiO2 11/08/24 22:52 97.9 96 17 123/90 (101) 99 97.9 11/08/24 20:07 Room Air* 0 21 Exam Gen: 49-year-old female in mild distress Skin: Warm, dry, normal color and texture, no rash. HEENT: Normocephalic atraumatic, mucous membranes moist and pink. Neck: Cervical and supraclavicular nodes normal without enlargement, trachea is midline, thyroid gland is normal without masses. Pulmonary: Bilateral rhonchi Cardiac: Regular rate and rhythm. No murmur Abdomen: Soft, nontender, nondistended, bowel sounds present all 4 quadrants, no guarding, no rigidity, no organomegaly. Extremities: No cyanosis, clubbing, no edema Neuro: Cranial nerves II through XII grossly intact, normal affect and speech, no focal motor deficits. Labs/Xrays ORDERING PHYSICIAN: AVILA LYNNE MD PROCEDURE(s): CXRP - CHEST PORTABLE REASON: sob ORDER NUMBER(s): [id number], ACCESSION NUMBER(s): [id number] EXAM: XY CHEST PORTABLE Indication: sob Technique: Single frontal view of the chest was obtained Comparison: XY CHEST PORTABLE on DOS: 11/07/24 FINDINGS: Lines and Tubes: None Lungs: Patchy right lung consolidative opacities. Pleura: No effusion. No pneumothorax. Cardiomediastinal contours: Cardiomegaly. Bones: No acute osseous abnormality. IMPRESSION: Patchy right lung masslike consolidative opacities seen on prior CT. Differential considerations include infection or malignancy. Cardiomegaly. Labs Test 11/08/24 19:20 11/08/24 18:16 Range/Units Troponin I High Sensitivity 12 </=34 ng/L White Blood Count 15.6 #H 4.4-10.8 10^3/uL Red Blood Count 4.59 4.0-5.20 10^6/uL Hemoglobin 11.8 L 12.2-16.2 g/dL Hematocrit 37.8 # 36.0-46.0 % Mean Corpuscular Volume 82.3 80.0-100.0 fL Mean Corpuscular Hemoglobin 25.8 L 28.0-32.0 pg Mean Corpuscular Hemoglobin Concent 31.3 L 32.0-36.0 g/dL Red Cell Distribution Width 16.0 H 11.8-14.3 % Platelet Count 458 H 140-450 10^3/uL Mean Platelet Volume 9.8 6.9-10.8 fL Neutrophils (%) (Auto) 82.3 H 37.0-80.0 % Lymphocytes (%) (Auto) 12.4 10.0-50.0 % Monocytes (%) (Auto) 5.0 0.0-12.0 % Eosinophils (%) (Auto) 0.1 0.0-7.0 % Basophils (%) (Auto) 0.2 0.0-2.0 % Neutrophils # (Auto) 12.8 H 1.6-8.6 10 ^3/uL Lymphocytes # (Auto) 1.9 0.4-5.4 10 ^3/uL Monocytes # (Auto) 0.8 0-1.3 10 ^3/uL Eosinophils # (Auto) 0 0-0.8 10 ^3/uL Basophils # (Auto) 0 0-0.2 10 ^3/uL Nucleated Red Blood Cells 0.1 % Prothrombin Time 11.9 H 9.3-11.8 sec Prothrombin Time INR 1.14 0.9-1.15 Activated Partial Thromboplast Time 26.1 24.5-34.5 SEC Sodium Level 141 136-145 mmol/L Potassium Level 4.5 3.5-5.1 mmol/L Chloride Level 108 H 98-107 mmol/L Carbon Dioxide Level 27 20-31 mmol/L Anion Gap 6 5-15 Blood Urea Nitrogen 28 #H 9-23 mg/dL Creatinine 0.77 0.550-1.02 mg/dL Glomerular Filtration Rate Calc 96 >90 mL/min BUN/Creatinine Ratio 36.4 H 10.0-20.0 Serum Glucose 94 74-106 mg/dL Lactic Acid Level 1.4 0.4-2.0 mmol/L Calcium Level 9.6 8.7-10.4 mg/dL Total Bilirubin 0.3 0.2-1.0 mg/dL Aspartate Amino Transferase (AST) 23 13-40 U/L Alanine Aminotransferase (ALT) 29 7-40 U/L Alkaline Phosphatase 100 46-116 U/L B-Type Natriuretic Peptide 2455.30 0-100 pg/mL Total Protein 7.0 5.7-8.2 g/dL Albumin 3.6 3.2-4.8 g/dL Assessment/Plan Assessment/Plan Assessment Acute on chronic congestive heart failure Community-acquired pneumonia Hypertension Plan Admit the patient to telemetry to the hospitalist IV Lasix Azithromycin/Rocephin Med nebs Resume home medications Continue treatment per orders Plan discussed with: Patient My Orders Orders - NEIL ALBA AGACNP Procedure Category Date Status Time Admit ADMIT 11/08/24 Transmitted 19:48 Nitroglycerin PHA 11/08/24 In Process Sublingual (Ntrostat 20:00 Stat Ekg For Chest MELIZA 11/08/24 In Process Pain 19:48 Notify Of Changes MELIZA 11/08/24 In Process From Base 19:48 Prenatal Nurse For MELIZA 11/08/24 In Process 24 Hours 19:48 Emergency Dysrhythmia MELIZA 11/08/24 In Process Protocol 19:48 Rhythm Strips Once MELIZA 11/08/24 In Process Every Shift 19:48 Oxygen By Nasal RT 11/08/24 Transmitted Cannula 19:48 Morphine Sulfate PHA 11/08/24 In Process Injection 20:15 Mrsa Screen ZECHARIAH 11/08/24 Uncollected 23:01 Hepatitis B Surface LAB 11/08/24 Logged Antigen 23:04 Hepatitis C Antibody LAB 11/08/24 Logged 23:04 Mrsa Screen ZECHARIAH 11/08/24 Logged 23:04 Drug Screen LAB 11/08/24 Verified 23:22 Albuterol Medneb PHA 11/08/24 Verified (Ventolin Medneb) 23:30 Azithromycin 500mg/ PHA 11/09/24 Verified 250ml (Zithromax 50 10:00 Ceftriaxone Ivpb PHA 11/09/24 Verified Rocephin 09:00 Furosemide Injection PHA 11/09/24 Verified (Lasix Injection) 06:00 Carvedilol Tablet PHA 11/09/24 Verified (Coreg Tablet) 10:00 Sacubitril-Valsartan PHA 11/09/24 Verified (Entresto 24-26 Mg 10:00 Apixaban (Eliquis) PHA 11/09/24 Verified 10:00 Aspirin Tablet PHA 11/09/24 Verified 10:00 Atorvastatin (Lipitor) PHA 11/09/24 Verified 22:00 Date of Service: Nov 08, 2024 Billing Provider: NEIL ALBA Common Visit Codes: [id number] INP/OBS CARE (HIGH) NEIL ALBA Nov 08, 2024 23:32
[2024-11-08 23:54] VITALS: PULSE 84; RESP 16; O2SAT 96
[2024-11-08] MEDS: ALBUTEROL SULF 2.5 MG/0.5ML(0.5%) NEB SOLN NEB PRN (23:54)
[2024-11-08] MEDS: ACETYLCYSTEINE 10 %(100MG/ML) SOL 4ML NEB SCH (23:54)
[2024-11-09] VITALS (17 sets, daily range): BP systolic 99–123; BP diastolic 71–90; PULSE 78–99; RESP 12–20; TEMP 97.8–98.1; O2SAT 94–100
[2024-11-09] MEDS: FUROSEMIDE 20 MG/2 ML VIAL IV SCH (06:05)
[2024-11-09] MEDS: SACUBITRIL-VALSARTAN 24mg/26mg TAB PO SCH (09:46)
[2024-11-09] MEDS: CARVEDILOL 3.125 MG TAB PO SCH (09:46)
[2024-11-09] MEDS: APIXABAN 5 MG TAB PO SCH (09:46)
[2024-11-09] MEDS: ASPirin 81 mg TAB PO SCH (09:47)
[2024-11-09] MEDS: cefTRIAXone 1GM/50ML D5W 50 ML IV SCH (09:47)
[2024-11-09] MEDS: AZITHROMYCIN 500MG/ 250ML 250 ML IV SCH (09:48)
[2024-11-09 10:06] LABS: Hepatitis B Surface Antigen Negative (Negative)
[2024-11-09 10:48] LABS: Hepatitis C Antibody Reactive (Negative)
--- NOTE | 2024-11-09 13:55 | ECG ---
[facility] Test Date: 2024-11-08 Test Time: 17:53:56 Pat Name: ANJALI CHAU Department: ED Room: [facility] Gender: F [employer]ologist: silvia : 1975 Requested By: AVILA LYNNE Order Number: [id number] Reading MD: Duglas Dorman Measurements Intervals [place] Rate: 97 P: 53 NH: 135 QRS: -8 QRSD: 152 T: 35 QT: 422 QTc: 536 Interpretive Statements Sinus rhythm Left bundle branch block Electronically Signed On 11-09-2024 14:59:26 PDT by Duglas Dorman Please click the below link to view image of tracing.
--- NOTE | 2024-11-09 18:32 | DVHPN2 ---
Subjective Still feeling SOB Reviewed: H&P, Labs Changes from previous H/P or p: No Changes Objective Vitals Vital Signs Date Time Temp Pulse Resp B/P (MAP) Pulse Ox O2 Delivery O2 Flow Rate FiO2 11/09/24 18:14 128/99 11/09/24 18:14 98 18 100 11/09/24 18:08 Room Air* 0 21 11/09/24 17:00 98.0 98.0 Intake/Output Intake and Output 11/09/24 07:00 Intake Total 750 ml Balance 750 ml Intake Oral 450 ml IV Total 300 ml # Voids 2 General Appearance: Alert, Oriented X3 Lungs: Clear to auscultation Cardiovascular: Regular rate, Normal S1, Normal S2 Medications Current Medications Medications Dose Ordered Sig/Nevaeh Route Start Time Stop Time Status Last Admin Dose Admin Nitroglycerin 0.4 mg Q5MINP PRN SL 11/08/24 20:00 Morphine Sulfate 2 mg Q30M PRN IV 11/08/24 20:15 Albuterol 2.5 mg Q6HPRN PRN NEB 11/08/24 23:30 11/09/24 18:08 2.5 MG Azithromycin 250 ml @ 125 mls/hr DAILY IV 11/09/24 10:00 11/09/24 09:48 125 MLS/HR Ceftriaxone Sodium 50 ml @ 100 mls/hr DAILY@09 IV 11/09/24 09:00 11/09/24 09:47 100 MLS/HR Furosemide 20 mg BIDD IV 11/09/24 06:00 11/09/24 18:14 20 MG Carvedilol 3.125 mg Q12HR PO 11/09/24 10:00 11/09/24 09:46 3.125 MG Sacubitril/ Valsartan 1 tab BID PO 11/09/24 10:00 11/09/24 09:46 1 TAB Apixaban 5 mg BID PO 11/09/24 10:00 11/09/24 09:46 5 MG Aspirin 81 mg DAILY PO 11/09/24 10:00 11/09/24 09:47 81 MG Atorvastatin Calcium 20 mg HS PO 11/09/24 22:00 Acetylcysteine 100 mg Q6HR NEB 11/09/24 00:00 11/09/24 18:07 100 MG Laboratory Results Laboratory Tests 6/3/25 18:16 Microbiology Microbiology Date/Time Source Procedure Growth Status 11/08/24 23:23 Nose MRSA Screen - Final Complete 11/08/24 18:16 Blood Blood Culture - Preliminary NO GROWTH AFTER 24 HOURS OF INCUBATION. Resulted Assessment/Plan Assessment/Plan Acute on chronic congestive heart failure Community-acquired pneumonia Hypertension Plan IV lasix BID IV abx rocephin and zithromax Plan discussed with: Patient Date of Service: Nov 09, 2024 Billing Provider: TYREL NAM MD Common Visit Codes: [id number] INP/OBS CARE(HIGH) TYREL NAM MD Nov 09, 2024 18:32
[2024-11-09] MEDS: ATORVASTATIN 20 MG TAB PO SCH (22:38)
[2024-11-10] VITALS (18 sets, daily range): BP systolic 91–105; BP diastolic 56–70; PULSE 80–100; RESP 16–20; TEMP 97.5–98.2; O2SAT 94–100
--- NOTE | 2024-11-10 16:05 | DVHPN2 ---
Subjective Still feeling SOB on minimal exertion and laying flat Reviewed: H&P, Labs Changes from previous H/P or p: No Changes Objective Vitals Vital Signs Date Time Temp Pulse Resp B/P (MAP) Pulse Ox O2 Delivery O2 Flow Rate FiO2 11/10/24 12:45 98.2 91 18 91/69 (76) 96 98.2 11/10/24 12:30 Room Air 11/10/24 12:30 0 21 Intake/Output Intake and Output 11/10/24 07:00 Intake Total 3000 ml Output Total 2350 ml Balance 650 ml Intake Oral 2700 ml IV Total 300 ml Output Urine Total 2350 ml # Voids 3 General Appearance: Alert, Oriented X3 Lungs: Clear to auscultation Cardiovascular: Regular rate, Normal S1, Normal S2 Medications Current Medications Medications Dose Ordered Sig/Nevaeh Route Start Time Stop Time Status Last Admin Dose Admin Nitroglycerin 0.4 mg Q5MINP PRN SL 11/08/24 20:00 Morphine Sulfate 2 mg Q30M PRN IV 11/08/24 20:15 Albuterol 2.5 mg Q6HPRN PRN NEB 11/08/24 23:30 11/10/24 12:30 2.5 MG Azithromycin 250 ml @ 125 mls/hr DAILY IV 11/09/24 10:00 11/10/24 11:06 125 MLS/HR Ceftriaxone Sodium 50 ml @ 100 mls/hr DAILY@09 IV 11/09/24 09:00 11/10/24 09:27 100 MLS/HR Carvedilol 3.125 mg Q12HR PO 11/09/24 10:00 11/10/24 11:06 3.125 MG Sacubitril/ Valsartan 1 tab BID PO 11/09/24 10:00 11/10/24 11:07 1 TAB Apixaban 5 mg BID PO 11/09/24 10:00 11/10/24 11:07 5 MG Aspirin 81 mg DAILY PO 11/09/24 10:00 11/10/24 11:07 81 MG Atorvastatin Calcium 20 mg HS PO 11/09/24 22:00 11/09/24 22:38 20 MG Acetylcysteine 100 mg Q6HR NEB 11/09/24 00:00 11/10/24 12:30 100 MG Furosemide 40 mg BIDD IV 11/10/24 18:00 Acetaminophen/ Hydrocodone Bitart 1 tab Q4HPRN PRN PO 11/10/24 12:45 Guaifenesin/ Codeine Phosphate 5 ml Q6HPRN PRN PO 11/10/24 12:45 Laboratory Results Laboratory Tests 11/08/24 18:16 Microbiology Microbiology Date/Time Source Procedure Growth Status 11/08/24 23:23 Nose MRSA Screen - Final Complete 11/08/24 18:16 Blood Blood Culture - Preliminary NO GROWTH AFTER 24 HOURS OF INCUBATION. Resulted Assessment/Plan Assessment/Plan Acute on chronic congestive heart failure Community-acquired pneumonia Hypertension Plan IV lasix BID>increase dose to 40mg BID IV abx rocephin and zithromax Plan discussed with: Patient My Orders Orders - TYREL NAM MD Procedure Category Date Status Time Furosemide Injection PHA 11/10/24 In Process (Lasix Injection) 18:00 Hydrocodone-Acet PHA 11/10/24 In Process 5/325mg Tab ([place] 12:45 Guaifenesin-Codeine PHA 11/10/24 In Process Liquid (Robitussin/C 12:45 Date of Service: Nov 10, 2024 Billing Provider: TYREL NAM MD Common Visit Codes: [id number] INP/OBS CARE(HIGH) TYREL NAM MD Nov 10, 2024 16:05
[2024-11-10] MEDS: FUROSEMIDE 40 MG/4 ML VIAL IV SCH (18:30)
[2024-11-10] MEDS: guaiFENesin-CODEINE Liq 5 ML UD PO PRN (18:35)
[2024-11-10] MEDS: HYDROcodone-ACET 5/325MG TAB PO PRN (23:14)
[2024-11-11] VITALS (68 sets, daily range): BP systolic 65–118; BP diastolic 42–86; PULSE 84–105; RESP 13–37; TEMP 96.9–98.4; O2SAT 89–100
[2024-11-11 08:43] LABS: Basophils # (auto) 0.1 10 ^3/uL (0-0.2); Eosinophils # (auto) 0.3 10 ^3/uL (0-0.8); Eosinophils % (auto) 2.9 % (0.0-7.0); Hematocrit 45.9 % (36.0-46.0); Hemoglobin 14.9 g/dL (12.2-16.2); Lymphocytes # (auto) 2.5 10 ^3/uL (0.4-5.4); Lymphocytes % (auto) 22.1 % (10.0-50.0); Mean Corpuscular Hemoglobin 26.3 pg (28.0-32.0); Mean Corpuscular Hgb Conc. 32.5 g/dL (32.0-36.0); Mean Corpuscular Volume 80.8 fL (80.0-100.0); Monocytes # (auto) 0.5 10 ^3/uL (0-1.3); Monocytes % (auto) 4.7 % (0.0-12.0); Neutrophils # (auto) 7.7 10 ^3/uL (1.6-8.6); Neutrophils % (auto) 69.3 % (37.0-80.0); Platelet Count (auto) 495 10^3/uL (140-450); Red Blood Cells 5.68 10^6/uL (4.0-5.20); Red Cell Distribution Width 16.4 % (11.8-14.3); White Blood Cell 11.1 10^3/uL (4.4-10.8)
[2024-11-11 09:00] LABS: INR 1.14 (0.9-1.15); Partial Thromboplastin Time 26.5 SEC (24.5-34.5); Prothrombin Time 11.9 sec (9.3-11.8)
[2024-11-11 09:02] LABS: Alanine Aminotransferase 21 U/L (7-40); Albumin 3.6 g/dL (3.2-4.8); Alkaline Phosphatase 98 U/L (46-116); Anion Gap 6 (5-15); Aspartate Aminotransferase 15 U/L (13-40); BUN/Creatinine Ratio 25.6 (10.0-20.0); Bilirubin, Total 0.4 mg/dL (0.2-1.0); Blood Urea Nitrogen 21 mg/dL (9-23); Calcium 9.4 mg/dL (8.7-10.4); Carbon Dioxide 30 mmol/L (20-31); Chloride 101 mmol/L (98-107); Glucose 104 mg/dL (74-106); Magnesium 2.2 mg/dL (1.6-2.6); Phosphorus 4.1 mg/dL (2.4-5.1); Potassium 4.7 mmol/L (3.5-5.1); Sodium 137 mmol/L (136-145); Total Protein 6.9 g/dL (5.7-8.2)
[2024-11-11] MEDS: NOREPINEPHRINE 8 MG/250ML KIT 250 ML IV SCH (09:22)
--- NOTE | 2024-11-11 10:16 | DVH ---
INDICATION: CHF TECHNIQUE: Frontal view of the chest. COMPARISON: XY CHEST PORTABLE on DOS: 11/08/24, XY CHEST PORTABLE on DOS: 11/07/24 FINDINGS: Bilateral airspace opacities. The heart and mediastinal contours are grossly unremarkable. There is no evidence of pleural disease. The bony structures of the chest are intact without fracture. IMPRESSION: 1. Bibasilar airspace opacities right worse than left.
[2024-11-11] MEDS: MIDODRINE HCL 10 MG TAB PO SCH (10:44)
[2024-11-11] MEDS: SODIUM CHLORIDE 0.9% 500 ML IV ONE (12:11)
--- NOTE | 2024-11-11 17:40 | DVHPN2 ---
Subjective Became hypotensive overnight and this morning Reviewed: H&P, Labs Changes from previous H/P or p: No Changes Objective Vitals Vital Signs Date Time Temp Pulse Resp B/P (MAP) Pulse Ox O2 Delivery O2 Flow Rate FiO2 11/11/24 15:00 97/67 11/11/24 14:45 91 16 94 11/11/24 12:35 Room Air 0.0 11/11/24 12:35 21 11/11/24 12:07 98.0 98.0 Intake/Output Intake and Output 11/11/24 07:00 Intake Total 1150 ml Balance 1150 ml Intake Oral 1100 ml IV Total 50 ml # Voids 10 # Bowel Movements 1 General Appearance: Alert, Oriented X3 Lungs: Clear to auscultation Cardiovascular: Regular rate, Normal S1, Normal S2 Medications Current Medications Medications Dose Ordered Sig/Nevaeh Route Start Time Stop Time Status Last Admin Dose Admin Nitroglycerin 0.4 mg Q5MINP PRN SL 11/08/24 20:00 Morphine Sulfate 2 mg Q30M PRN IV 11/08/24 20:15 Albuterol 2.5 mg Q6HPRN PRN NEB 11/08/24 23:30 11/11/24 12:35 2.5 MG Azithromycin 250 ml @ 125 mls/hr DAILY IV 11/09/24 10:00 11/11/24 09:22 125 MLS/HR Ceftriaxone Sodium 50 ml @ 100 mls/hr DAILY@09 IV 11/09/24 09:00 11/11/24 09:04 100 MLS/HR Carvedilol 3.125 mg Q12HR PO 11/09/24 10:00 11/10/24 23:10 3.125 MG Sacubitril/ Valsartan 1 tab BID PO 11/09/24 10:00 11/10/24 23:09 1 TAB Apixaban 5 mg BID PO 11/09/24 10:00 11/11/24 09:04 5 MG Aspirin 81 mg DAILY PO 11/09/24 10:00 11/11/24 09:04 81 MG Atorvastatin Calcium 20 mg HS PO 11/09/24 22:00 11/10/24 23:10 20 MG Acetylcysteine 100 mg Q6HR NEB 11/09/24 00:00 11/11/24 12:35 100 MG Furosemide 40 mg BIDD IV 11/10/24 18:00 Hold 11/10/24 18:30 40 MG Acetaminophen/ Hydrocodone Bitart 1 tab Q4HPRN PRN PO 11/10/24 12:45 11/10/24 23:14 1 TAB Guaifenesin/ Codeine Phosphate 5 ml Q6HPRN PRN PO 11/10/24 12:45 11/10/24 18:35 5 ML Norepinephrine Bitartrate 250 ml @ 3.75 mls/hr Q24H IV 11/11/24 07:00 11/11/24 09:22 3.75 MLS/HR Midodrine 10 mg TID@0600,1200,1800 PO 11/11/24 12:00 11/11/24 10:44 10 MG Laboratory Results Laboratory Tests 11/11/24 08:00 Chemistry Test 11/11/24 08:00 Albumin 3.6 g/dL (3.2-4.8) Calcium Level 9.4 mg/dL (8.7-10.4) Magnesium Level 2.2 mg/dL (1.6-2.6) Phosphorus Level 4.1 mg/dL (2.4-5.1) Total Protein 6.9 g/dL (5.7-8.2) Coagulation Test 11/11/24 08:00 Prothrombin Time 11.9 sec (9.3-11.8) H Prothrombin Time INR 1.14 (0.9-1.15) Activated Partial Thromboplast Time 26.5 SEC (24.5-34.5) Cardiac Markers Test 11/11/24 08:00 B-Type Natriuretic Peptide 552.22 pg/mL (0-100) LFT Test 11/11/24 08:00 Alanine Aminotransferase (ALT) 21 U/L (7-40) Alkaline Phosphatase 98 U/L (46-116) Aspartate Amino Transferase (AST) 15 U/L (13-40) Total Bilirubin 0.4 mg/dL (0.2-1.0) Microbiology Microbiology Date/Time Source Procedure Growth Status 11/08/24 23:23 Nose MRSA Screen - Final Complete 11/08/24 18:16 Blood Blood Culture - Preliminary NO GROWTH AFTER 48 HOURS OF INCUBATION. Resulted Assessment/Plan Assessment/Plan #Acute on chronic congestive heart failure #Community-acquired pneumonia #Hypertension IV lasix BID>increase dose to 40mg BID>stopped today due to severe hypotension IV abx rocephin and zithromax #Cardiogenic shock IV levophed Consult cardiology Critical care time was 50 minutes Plan discussed with: Patient My Orders Orders - TYREL NAM MD Procedure Category Date Status Time Chest Portable XY 11/11/24 Resulted 07:21 Blood Culture ZECHARIAH 11/11/24 In Process 07:24 Midodrine Tablet PHA 11/11/24 In Process (Proamatine Tablet) 12:00 Mrsa Screen ZECHARIAH 11/11/24 In Process 11:56 Date of Service: Nov 11, 2024 Billing Provider: TYREL NAM MD Common Visit Codes: [id number] CARE 30-74 MIN TYREL NAM MD Nov 11, 2024 17:40
[2024-11-11] MEDS: NITROGLYCERIN 0.4 MG SL TAB SL PRN (21:23)
[2024-11-12] VITALS (104 sets, daily range): BP systolic 81–130; BP diastolic 43–95; PULSE 82–113; RESP 12–37; TEMP 97.8–98.7; O2SAT 90–100
[2024-11-12 08:24] LABS: Basophils # (auto) 0 10 ^3/uL (0-0.2); Basophils % (auto) 0.2 % (0.0-2.0); Eosinophils # (auto) 0.4 10 ^3/uL (0-0.8); Eosinophils % (auto) 3.9 % (0.0-7.0); Hematocrit 42.8 % (36.0-46.0); Hemoglobin 13.6 g/dL (12.2-16.2); Lymphocytes # (auto) 2.1 10 ^3/uL (0.4-5.4); Lymphocytes % (auto) 21.7 % (10.0-50.0); Mean Corpuscular Hemoglobin 26.1 pg (28.0-32.0); Mean Corpuscular Hgb Conc. 31.8 g/dL (32.0-36.0); Monocytes # (auto) 0.9 10 ^3/uL (0-1.3); Neutrophils # (auto) 6.4 10 ^3/uL (1.6-8.6); Neutrophils % (auto) 65.2 % (37.0-80.0); Platelet Count (auto) 458 10^3/uL (140-450); Red Blood Cells 5.22 10^6/uL (4.0-5.20); Red Cell Distribution Width 16.3 % (11.8-14.3); White Blood Cell 9.8 10^3/uL (4.4-10.8)
[2024-11-12 08:44] LABS: Alanine Aminotransferase 20 U/L (7-40); Albumin 3.5 g/dL (3.2-4.8); Alkaline Phosphatase 93 U/L (46-116); Anion Gap 8 (5-15); BUN/Creatinine Ratio 21.5 (10.0-20.0); Blood Urea Nitrogen 17 mg/dL (9-23); Calcium 9.2 mg/dL (8.7-10.4); Carbon Dioxide 27 mmol/L (20-31); Chloride 105 mmol/L (98-107); Glucose 104 mg/dL (74-106); Magnesium 2.1 mg/dL (1.6-2.6); Potassium 4.7 mmol/L (3.5-5.1); Sodium 140 mmol/L (136-145); Total Protein 6.5 g/dL (5.7-8.2)
[2024-11-12 08:45] LABS: Aspartate Aminotransferase 16 U/L (13-40); Bilirubin, Total 0.3 mg/dL (0.2-1.0)
--- NOTE | 2024-11-12 09:32 | DVHINCON2 ---
Date Seen: Nov 12, 2024 Referring Physician JOHANNY Muñiz Reason for Consultation "Severe EF with hypotension" History of Present Illness This is a 49-year-old female patient who presents to the emergency room with chief complaint of worsening shortness of breath and chest pain. The patient was recently seen at this facility and discharged on 11/07/2024 and returns one day after discharge. The patient describes the chest pain as unprovoked, intermittent, throbbing in nature, substernal and nonradiating. Associated symptoms include shortness of breath. The patient admits to methamphetamine use on the day of emergency room arrival. Initial twelve lead electrocardiogram reveals sinus rhythm with left bundle branch block and left ventricular hypertrophy (similar to previous visit). Initial troponin level of 12ng/L with flat trend thereafter. BNP level on arrival was 2455pg/mL. Significant past medical history includes congestive heart failure, left lower extremity DVT (on Eliquis), tobacco use, and methamphetamine use. The patient denies seeing a strap maker in the outpatient setting. Past Medical History Past medical history reviewed. No other significant than mentioned above. Past Surgical History Lap band procedure Family History: FH: kidney disease Family History Family history reviewed. Social History Patient has a 30 pack-year history, smokes approximately half a pack per day now Patient admits to methamphetamine use Denies any alcohol Allergies: Coded Allergies: NO KNOWN ALLERGIES (Unverified , 11/05/24) Home Meds Active Scripts Pantoprazole Sodium Sesquihydr (Pantoprazole Sodium) 40 Mg Tab, 40 MG PO DAILY@BREAKFAST, #30 TAB Prov:STEPHANIE MCCABE MD 11/07/24 Cefdinir (Cefdinir) 300 Mg Cap, 1 CAP PO BID, #20 CAP Prov:STEPHANIE MCCABE MD 11/07/24 Sulfamethoxazole W/Trimethopri (Bactrim Ds Tablet) 1 Tab Tb, 1 TAB PO BID, #14 TAB Prov:STEPHANIE MCCABE MD 11/07/24 Apixaban Base (ELIQUIS) 5 Mg Tab, 5 MG PO BID, #90 TAB Prov:STEPHANIE MCCABE MD 11/07/24 Sacubitril-Valsartan (Entresto 15-16 mg) 1 Cap Cap, 1 CAP PO QPM, #30 CAP Prov:STEPHANIE MCCABE MD 11/07/24 Carvedilol (Carvedilol) 3.125 Mg Tab, 1 TAB PO BID, #60 TAB 3 Refills Prov:STEPHANIE MCCABE MD 11/07/24 Reported Medications Metoprolol Succinate (Metoprolol Succinate Er) 25 Mg Tab, 1 TAB PO DAILY 11/08/24 Home Meds Home medications reviewed. Current Medications Current Medications Medications (Trade) Dose Ordered Sig/Nevahe Route PRN Reason Start Time Stop Time Status Last Admin Midodrine (Proamatine Tablet) 10 mg TID@0600,1200,1800 PO 11/11/24 12:00 11/12/24 08:23 DC 11/12/24 05:30 Review of Systems Constitutional: No symptom reported Ears, Nose, & Throat: No symptom reported Eyes: No symptom reported Neurological: No symptoms reported Pulmonary/Respiratory: Shortness of breath Cardiovascular: Chest pain Gastrointestinal: No symptom reported Genitourinary: No symptom reported Musculoskeletal: No symptom reported Skin: No symptom reported Psychiatric: No symptom reported Endocrine: No symptom reported Hematologic/Lymphatic: No symptom reported Vital Signs Vital Signs Date Time Temp Pulse Resp B/P (MAP) Pulse Ox O2 Delivery O2 Flow Rate FiO2 11/12/24 09:00 91 18 100/60 (73) 94 11/12/24 08:00 98.6 98.6 11/12/24 08:00 Room Air* 0 21 Physical Exam General Appearance: Cooperative. Well-developed. Well-nourished. No acute d istress. Pulmonary/Respiratory: Diminished bilateral lower lobes Cardiovascular/Chest: Regular rate and rhythm. Peripheral Pulses: 2+ Radial (R). 2+ Radial (L). 2+ Pedal (R). 2+ Pedal (L) Abdominal Exam: Normal bowel sounds. Ankle Exam: Negative ankle edema Lower extremities: Negative lower extremity edema Neuro/Mental Status: A/OX4, coherent. Thoughts/Psych: Normal thought pattern. Appropriate mood and affect. Good judgment and insight. Appearance: No acute distress. Skin Exam: Normal inspection. Normal color. Warm and dry. Labs/Diagnostic Data Labs Test 11/12/24 07:45 11/11/24 08:00 11/09/24 02:49 Range/Units White Blood Count 9.8 4.4-10.8 10^3/uL Red Blood Count 5.22 H 4.0-5.20 10^6/uL Hemoglobin 13.6 12.2-16.2 g/dL Hematocrit 42.8 36.0-46.0 % Mean Corpuscular Volume 82.0 80.0-100.0 fL Mean Corpuscular Hemoglobin 26.1 L 28.0-32.0 pg Mean Corpuscular Hemoglobin Concent 31.8 L 32.0-36.0 g/dL Red Cell Distribution Width 16.3 H 11.8-14.3 % Platelet Count 458 H 140-450 10^3/uL Mean Platelet Volume 9.5 6.9-10.8 fL Neutrophils (%) (Auto) 65.2 37.0-80.0 % Lymphocytes (%) (Auto) 21.7 10.0-50.0 % Monocytes (%) (Auto) 9.0 0.0-12.0 % Eosinophils (%) (Auto) 3.9 0.0-7.0 % Basophils (%) (Auto) 0.2 0.0-2.0 % Neutrophils # (Auto) 6.4 1.6-8.6 10 ^3/uL Lymphocytes # (Auto) 2.1 0.4-5.4 10 ^3/uL Monocytes # (Auto) 0.9 0-1.3 10 ^3/uL Eosinophils # (Auto) 0.4 0-0.8 10 ^3/uL Basophils # (Auto) 0 0-0.2 10 ^3/uL Nucleated Red Blood Cells 0.0 % Sodium Level 140 136-145 mmol/L Potassium Level 4.7 3.5-5.1 mmol/L Chloride Level 105 98-107 mmol/L Carbon Dioxide Level 27 20-31 mmol/L Anion Gap 8 5-15 Blood Urea Nitrogen 17 9-23 mg/dL Creatinine 0.79 0.550-1.02 mg/dL Glomerular Filtration Rate Calc 93 >90 mL/min BUN/Creatinine Ratio 21.5 H 10.0-20.0 Serum Glucose 104 74-106 mg/dL Calcium Level 9.2 8.7-10.4 mg/dL Magnesium Level 2.1 1.6-2.6 mg/dL Total Bilirubin 0.3 0.2-1.0 mg/dL Aspartate Amino Transferase (AST) 16 13-40 U/L Alanine Aminotransferase (ALT) 20 7-40 U/L Alkaline Phosphatase 93 46-116 U/L Total Protein 6.5 5.7-8.2 g/dL Albumin 3.5 3.2-4.8 g/dL Prothrombin Time 11.9 H 9.3-11.8 sec Prothrombin Time INR 1.14 0.9-1.15 Activated Partial Thromboplast Time 26.5 24.5-34.5 SEC Lactic Acid Level 1.7 0.4-2.0 mmol/L Phosphorus Level 4.1 2.4-5.1 mg/dL B-Type Natriuretic Peptide 552.22 0-100 pg/mL Troponin I High Sensitivity 13 </=34 ng/L Hepatitis B Surface Antigen Negative Negative Hepatitis C Antibody Reactive *A Negative Microbiology Date/Time Source Procedure Growth Status 11/11/24 11:56 Nose MRSA Screen - Final Complete 11/11/24 08:00 Blood Blood Culture - Preliminary NO GROWTH AFTER 24 HOURS OF INCUBATION. Resulted Assessment Acute on chronic decompensated HFrEF, NYHA class III End-stage cardiomyopathy, ?Drug-induced Severe tricuspid regurgitation Moderate mitral regurgitation History of left lower extremity DVT (on Eliquis) Amphetamine use Tobacco use Plan/Recommendation We will continue with the following plan/recommendations (Dr. Mendoza): * Transthoracic echocardiogram from 11/05/2024 reveals an EF of 10% with severe dilated left ventricle and RV dysfunction * Initiate guideline directed medical therapy for CHF as tolerated by blood pressure * Add MRA (spironolactone), with stable potassium level * * avoid midodrine as this is contraindicated in HFrEF patient's * Strict intake and output, daily weights, maintain fluid restriction * Aggressive diuresis as tolerated * Close Cardiac surveillance * Risk factor modifications, counseled * Lifestyle changes * Adherence to medication Patient seen and examined at bedside with . At the time of assessment, the patient is off of vasopressor therapy since approximately 0715 this morning. Given this patient's history of active methamphetamine use and medical noncompliance, she is not a candidate for any invasive cardiac workup at this time. The patient should continue uninterrupted guideline directed medical therapy for CHF. The patient may qualify for an ICD if no improvement in EF within 3-6 months on uninterrupted GDMT. Patient will also need to establish a strap maker in the outpatient setting. Thank you for allowing us to care for this patient. Please call with any questions or concerns. Critical care time spent: 44 minutes This medical document was created using an electronic medical record system with voice recognition software and computerized dictation system. Although this document has been carefully reviewed, there might still be some phonetic and typographical errors. Occasional wrong-word or ``sound-alike substitutions may have occurred due to the inherent limitations of voice recognition software. These areas are purely typographical due to imperfections of the software programs and do not reflect any compromise in the patient's medical care. Please read the chart carefully and recognize, using context, where these substitutions have occurred. Plan discussed with: Patient NYHA Physical activity limitations: Class3(Marked) ordinary (activity causes symtoms) Date of Service: Nov 12, 2024 Billing Provider: DARVIN FERGUSON Cardiology Common Codes: [id number] INP/OBS CARE (High) Cardiology Consultation Codes: [id number] CONSULT <45MIN DARVIN FERGUSON Nov 12, 2024 09:32
[2024-11-12 09:41] LABS: Triglycerides 122 mg/dL (< 150)
[2024-11-12 09:42] LABS: LDL Cholesterol 88 mg/dL (< 100)
[2024-11-12 09:43] LABS: Cholesterol 136 mg/dL (< 200)
[2024-11-12 09:53] LABS: HDL Cholesterol 36 mg/dL (40-59)
[2024-11-12 11:11] LABS: Amphetamine Screen, Urine Neg (NEGATIVE); Barbiturate Scree,Urine Neg (NEGATIVE); Benzodiazephine Screen, Urine Neg (NEGATIVE); Cannabinoid Screen, Urine Neg (NEGATIVE); Cocaine Screen, Urine Neg (NEGATIVE); Opiate Scree,Urine Neg (NEGATIVE); Phencyclidine Screen, Urine Neg (NEGATIVE)
--- NOTE | 2024-11-12 16:47 | DVHPN2 ---
Subjective still on levophed Reviewed: H&P, Labs Changes from previous H/P or p: No Changes Objective Vitals Vital Signs Date Time Temp Pulse Resp B/P (MAP) Pulse Ox O2 Delivery O2 Flow Rate FiO2 11/12/24 16:30 104 21 109/74 (86) 97 11/12/24 16:00 98.1 98.1 11/12/24 08:00 Room Air* 0 21 Intake/Output Intake and Output 11/12/24 07:00 Intake Total 1105.00 ml Balance 1105.00 ml Intake Oral 440 ml IV Total 665.00 ml # Voids 10 General Appearance: Alert, Oriented X3 Lungs: Clear to auscultation Cardiovascular: Regular rate, Normal S1, Normal S2 Medications Current Medications Medications Dose Ordered Sig/Nevaeh Route Start Time Stop Time Status Last Admin Dose Admin Nitroglycerin 0.4 mg Q5MINP PRN SL 11/08/24 20:00 11/11/24 21:32 0.4 MG Morphine Sulfate 2 mg Q30M PRN IV 11/08/24 20:15 Albuterol 2.5 mg Q6HPRN PRN NEB 11/08/24 23:30 11/12/24 11:49 2.5 MG Azithromycin 250 ml @ 125 mls/hr DAILY IV 11/09/24 10:00 11/12/24 08:15 125 MLS/HR Ceftriaxone Sodium 50 ml @ 100 mls/hr DAILY@09 IV 11/09/24 09:00 11/12/24 08:15 100 MLS/HR Sacubitril/ Valsartan 1 tab BID PO 11/09/24 10:00 11/10/24 23:09 1 TAB Apixaban 5 mg BID PO 11/09/24 10:00 11/12/24 08:15 5 MG Aspirin 81 mg DAILY PO 11/09/24 10:00 11/12/24 08:16 81 MG Atorvastatin Calcium 20 mg HS PO 11/09/24 22:00 11/11/24 22:23 20 MG Acetylcysteine 100 mg Q6HR NEB 11/09/24 00:00 11/12/24 11:49 100 MG Acetaminophen/ Hydrocodone Bitart 1 tab Q4HPRN PRN PO 11/10/24 12:45 11/10/24 23:14 1 TAB Guaifenesin/ Codeine Phosphate 5 ml Q6HPRN PRN PO 11/10/24 12:45 11/10/24 18:35 5 ML Norepinephrine Bitartrate 250 ml @ 3.75 mls/hr Q24H IV 11/11/24 07:00 11/11/24 09:22 3.75 MLS/HR Empaglifozin 10 mg DAILY PO 11/13/24 10:00 Furosemide 20 mg DAILY PO 11/13/24 10:00 Carvedilol 3.125 mg Q12HR PO 11/12/24 22:00 Laboratory Results Laboratory Tests 11/12/24 07:45 Chemistry Test 11/12/24 07:45 Albumin 3.5 g/dL (3.2-4.8) Calcium Level 9.2 mg/dL (8.7-10.4) Magnesium Level 2.1 mg/dL (1.6-2.6) Total Protein 6.5 g/dL (5.7-8.2) Lipid panel Test 11/12/24 07:45 Cholesterol Level 136 mg/dL (< 200) HDL Cholesterol 36 mg/dL (40-59) L Triglycerides Level 122 mg/dL (< 150) LFT Test 11/12/24 07:45 Alanine Aminotransferase (ALT) 20 U/L (7-40) Alkaline Phosphatase 93 U/L (46-116) Aspartate Amino Transferase (AST) 16 U/L (13-40) Total Bilirubin 0.3 mg/dL (0.2-1.0) HgA1c, TSH Test 11/12/24 07:45 Hemoglobin A1c 6.4 % A1C (<5.7) H Thyroid Stimulating Hormone (TSH) 2.01 uIU/mL (0.55-4.78) Microbiology Microbiology Date/Time Source Procedure Growth Status 11/11/24 11:56 Nose MRSA Screen - Final Complete 11/11/24 08:00 Blood Blood Culture - Preliminary NO GROWTH AFTER 24 HOURS OF INCUBATION. Resulted Assessment/Plan Assessment/Plan #Acute on chronic congestive heart failure #Community-acquired pneumonia #Hypertension IV lasix BID>increase dose to 40mg BID>stopped today due to severe hypotension IV abx rocephin and zithromax #Cardiogenic shock IV levophed Consult cardiology Continue levophed and wean off Critical care time was 50 minutes Plan discussed with: Patient Date of Service: Nov 12, 2024 Billing Provider: TYREL NAM MD Common Visit Codes: [id number] CARE 30-74 MIN TYREL NAM MD Nov 12, 2024 16:47
--- NOTE | 2024-11-12 18:39 | DVHINCON2 ---
Date of service: Nov 12, 2024 Referring Physician Polo Sauceda MD Reason for Consultation Pneumonia and atelectasis History of Present Illness A 49-year-old woman with past medical history of hypertension, congestive heart failure and coronary artery disease who presented to ED on 11/08/24 for evaluation of shortness of breath. Patient was recently admitted for exacerbation of congestive heart failure and discharged; she returned with worsening shortness of breath with associated productive cough with brown phlegm. Also complained of substernal chest pressure. No nausea or vomiting. No other acute complaints. Patient was admitted for further care, and pulmonary consultation is requested for evaluation and management of pneumonia and atelectasis. Review of Systems: 14-point review of systems negative unless otherwise noted above. Past Medical History: Hypertension, congestive heart failure and coronary artery disease Past Surgical History: Denies Medications: Reviewed. Allergies: No known drug allergies. Family History: No family history of premature CAD. No family history of lung disorders. Social History: Nonsmoker. No alcohol use. Positive methamphetamine use. Family History: FH: kidney disease Allergies: Coded Allergies: NO KNOWN ALLERGIES (Unverified , 11/05/24) Home Meds Active Scripts Pantoprazole Sodium Sesquihydr (Pantoprazole Sodium) 40 Mg Tab, 40 MG PO DAILY@BREAKFAST, #30 TAB Prov:STEPHANIE MCCABE MD 11/07/24 Cefdinir (Cefdinir) 300 Mg Cap, 1 CAP PO BID, #20 CAP Prov:STEPHANIE MCCABE MD 11/07/24 Sulfamethoxazole W/Trimethopri (Bactrim Ds Tablet) 1 Tab Tb, 1 TAB PO BID, #14 TAB Prov:STEPHANIE MCCABE MD 11/07/24 Apixaban Base (ELIQUIS) 5 Mg Tab, 5 MG PO BID, #90 TAB Prov:STEPHANIE MCCABE MD 11/07/24 Sacubitril-Valsartan (Entresto 15-16 mg) 1 Cap Cap, 1 CAP PO QPM, #30 CAP Prov:STEPHANIE MCCABE MD 11/07/24 Carvedilol (Carvedilol) 3.125 Mg Tab, 1 TAB PO BID, #60 TAB 3 Refills Prov:STEPHANIE MCCABE MD 11/07/24 Reported Medications Metoprolol Succinate (Metoprolol Succinate Er) 25 Mg Tab, 1 TAB PO DAILY 11/08/24 Current Medications Current Medications Medications (Trade) Dose Ordered Sig/Nevaeh Route PRN Reason Start Time Stop Time Status Last Admin Empaglifozin (Jardiance) 10 mg DAILY PO 11/13/24 10:00 Furosemide (Lasix Tablet) 20 mg DAILY PO 11/13/24 10:00 Carvedilol (Coreg Tablet) 3.125 mg Q12HR PO 11/12/24 22:00 Vital Signs Vital Signs Date Time Temp Pulse Resp B/P (MAP) Pulse Ox O2 Delivery O2 Flow Rate FiO2 11/12/24 18:08 104 20 97 11/12/24 18:08 Room Air* 0 21 11/12/24 18:00 96/72 (80) 11/12/24 16:00 98.1 98.1 Physical Exam Gen.: Patient lying in bed in no apparent distress. Breathing on room air. Head: Normocephalic, atraumatic. Eyes: EOMI/PERRLA. Ears: Normal hearing. Normal anatomy. Neck/trachea: Trachea midline, supple. Nose: Normal external anatomy. Mouth: Moist mucous membranes. Chest: Decreased air entry bilaterally. No wheezing or rhonchi. Cardiovascular: Positive S1, positive S2. Regular rate and rhythm. Abdomen: Positive bowel sounds in all 4 quadrants. Soft, non-tender, non- distended. : Deferred. Rectal: Deferred. Skin: Warm, dry. Intact. Extremities: 2+ radial pulses bilaterally. No lower extremity edema. Neuro: Awake, alert, oriented x3. No gross motor or sensory deficits. Cranial nerves II through XII intact. Gait not assessed. Labs/Diagnostic Data Labs Test 11/12/24 10:50 11/12/24 07:45 11/11/24 08:00 11/09/24 02:49 Range/Units Urine Opiates Screen Neg NEGATIVE Urine Fentanyl Screen Neg NEGATIVE Urine Barbiturates Screen Neg NEGATIVE Urine Phencyclidine Screen Neg NEGATIVE Urine Amphetamines Screen Neg NEGATIVE Urine Benzodiazepines Screen Neg NEGATIVE Urine Cocaine Screen Neg NEGATIVE Urine Cannabinoids Screen Neg NEGATIVE White Blood Count 9.8 4.4-10.8 10^3/uL Red Blood Count 5.22 H 4.0-5.20 10^6/uL Hemoglobin 13.6 12.2-16.2 g/dL Hematocrit 42.8 36.0-46.0 % Mean Corpuscular Volume 82.0 80.0-100.0 fL Mean Corpuscular Hemoglobin 26.1 L 28.0-32.0 pg Mean Corpuscular Hemoglobin Concent 31.8 L 32.0-36.0 g/dL Red Cell Distribution Width 16.3 H 11.8-14.3 % Platelet Count 458 H 140-450 10^3/uL Mean Platelet Volume 9.5 6.9-10.8 fL Neutrophils (%) (Auto) 65.2 37.0-80.0 % Lymphocytes (%) (Auto) 21.7 10.0-50.0 % Monocytes (%) (Auto) 9.0 0.0-12.0 % Eosinophils (%) (Auto) 3.9 0.0-7.0 % Basophils (%) (Auto) 0.2 0.0-2.0 % Neutrophils # (Auto) 6.4 1.6-8.6 10 ^3/uL Lymphocytes # (Auto) 2.1 0.4-5.4 10 ^3/uL Monocytes # (Auto) 0.9 0-1.3 10 ^3/uL Eosinophils # (Auto) 0.4 0-0.8 10 ^3/uL Basophils # (Auto) 0 0-0.2 10 ^3/uL Nucleated Red Blood Cells 0.0 % Sodium Level 140 136-145 mmol/L Potassium Level 4.7 3.5-5.1 mmol/L Chloride Level 105 98-107 mmol/L Carbon Dioxide Level 27 20-31 mmol/L Anion Gap 8 5-15 Blood Urea Nitrogen 17 9-23 mg/dL Creatinine 0.79 0.550-1.02 mg/dL Glomerular Filtration Rate Calc 93 >90 mL/min BUN/Creatinine Ratio 21.5 H 10.0-20.0 Serum Glucose 104 74-106 mg/dL Hemoglobin A1c 6.4 H <5.7 % A1C Calcium Level 9.2 8.7-10.4 mg/dL Magnesium Level 2.1 1.6-2.6 mg/dL Total Bilirubin 0.3 0.2-1.0 mg/dL Aspartate Amino Transferase (AST) 16 13-40 U/L Alanine Aminotransferase (ALT) 20 7-40 U/L Alkaline Phosphatase 93 46-116 U/L Total Protein 6.5 5.7-8.2 g/dL Albumin 3.5 3.2-4.8 g/dL Triglycerides Level 122 < 150 mg/dL Cholesterol Level 136 < 200 mg/dL LDL Cholesterol 88 < 100 mg/dL HDL Cholesterol 36 L 40-59 mg/dL Thyroid Stimulating Hormone (TSH) 2.01 0.55-4.78 uIU/mL Prothrombin Time 11.9 H 9.3-11.8 sec Prothrombin Time INR 1.14 0.9-1.15 Activated Partial Thromboplast Time 26.5 24.5-34.5 SEC Lactic Acid Level 1.7 0.4-2.0 mmol/L Phosphorus Level 4.1 2.4-5.1 mg/dL B-Type Natriuretic Peptide 552.22 0-100 pg/mL Troponin I High Sensitivity 13 </=34 ng/L Hepatitis B Surface Antigen Negative Negative Hepatitis C Antibody Reactive *A Negative Microbiology Date/Time Source Procedure Growth Status 11/11/24 11:56 Nose MRSA Screen - Final Complete 11/11/24 08:00 Blood Blood Culture - Preliminary NO GROWTH AFTER 24 HOURS OF INCUBATION. Resulted Assessment Impression: Acute on chronic CHF exacerbation, systolic EF 10% Shock/cardiogenic hypotension Pneumonia, likely gram negative Atelectasis DVT, left lower extremity. Methamphetamine use Plan: Supplemental oxygen PRN Titrate to keep O2 sats above 92%. Held Lasix Off Levophed since 7:30 AM. Keep SBP above 90 mmHg Continue bronchodilators. Continue antibiotics Incentive spirometry Monitor renal function. Monitor electrolytes. Supplement as necessary. Monitor ins and outs. Counseled against meth use. DVT prophylaxis - Eliquis. Prognosis: Poor given patient's multiple co-morbidities. Rest of plan per hospitalist and other consultants. Thank you Dr. Sauceda, for allowing me to participate in this patient's care. Further recommendations will depend on the patient's clinical course. Please do not hesitate to contact me if you have any questions or concerns. This medical document was created using an electronic medical record system with [employer] system. Although these documentations are being carefully reviewed, there may still be some phonetic and typographical changes. The errors are purely typographical, due to imperfection on the software prog mele, and do not reflect any compromise in the patient's medical care. Plan discussed with: Other (RUDDY Norwood/Dr. Sauceda) GLENIS EARLY MD Nov 12, 2024 18:39
[2024-11-12] MEDS: MORPHINE SULFATE 4 MG/ML SYR/VIAL IV PRN (20:22)
[2024-11-12] MEDS: CARVEDILOL 3.125 MG TAB PO SCH (21:37)
--- NOTE | 2024-11-12 23:51 | DVHINCON2 ---
Date Seen: Nov 12, 2024 Referring Physician JOHANNY Muñiz Reason for Consultation Severe EF with hypotension History of Present Illness This is a 49-year-old female with a past medical history includes congestive heart failure, left lower extremity DVT (on Eliquis), tobacco use, and methamphetamine use who presents to the emergency room with a complaint of worsening shortness of breath and chest pain. Patient was recently seen at this facility and discharged on 11/07/2024 and returns one day after discharge. Patient describes the chest pain as unprovoked, intermittent, throbbing in nature, substernal and nonradiating. Associated symptoms include shortness of breath. The patient admits to methamphetamine use on the day of emergency room arrival. Initial twelve lead electrocardiogram reveals sinus rhythm with left bundle branch block and left ventricular hypertrophy (similar to previous visit). Initial troponin level of 12ng/L with flat trend thereafter. BNP level on arrival was 2455pg/mL. Chest x-ray shows patchy right lung masslike consolidative opacities seen on prior CT and cardiomegaly. The patient denies seeing a retail loss prevention officer in the outpatient setting. Patient was admitted to the hospital. I am asked to consult on this patient. Past Medical History Past medical history reviewed. No other significant than mentioned above. Past Surgical History Lap band procedure Family History: FH: kidney disease Allergies: Coded Allergies: NO KNOWN ALLERGIES (Unverified , 11/05/24) Home Meds Active Scripts Pantoprazole Sodium Sesquihydr (Pantoprazole Sodium) 40 Mg Tab, 40 MG PO DAILY@BREAKFAST, #30 TAB Prov:STEPHANIE MCCABE MD 11/07/24 Cefdinir (Cefdinir) 300 Mg Cap, 1 CAP PO BID, #20 CAP Prov:STEPHANIE MCCABE MD 11/07/24 Sulfamethoxazole W/Trimethopri (Bactrim Ds Tablet) 1 Tab Tb, 1 TAB PO BID, #14 TAB Prov:STEPHANIE MCCABE MD 11/07/24 Apixaban Base (ELIQUIS) 5 Mg Tab, 5 MG PO BID, #90 TAB Prov:STEPHANIE MCCABE MD 11/07/24 Sacubitril-Valsartan (Entresto 15-16 mg) 1 Cap Cap, 1 CAP PO QPM, #30 CAP Prov:STEPHANIE MCCABE MD 11/07/24 Carvedilol (Carvedilol) 3.125 Mg Tab, 1 TAB PO BID, #60 TAB 3 Refills Prov:STEPHANIE MCCABE MD 11/07/24 Reported Medications Metoprolol Succinate (Metoprolol Succinate Er) 25 Mg Tab, 1 TAB PO DAILY 11/08/24 Current Medications Current Medications Medications (Trade) Dose Ordered Sig/Nevaeh Route PRN Reason Start Time Stop Time Status Last Admin Empaglifozin (Jardiance) 10 mg DAILY PO 11/13/24 10:00 Furosemide (Lasix Tablet) 20 mg DAILY PO 11/13/24 10:00 Carvedilol (Coreg Tablet) 3.125 mg Q12HR PO 11/12/24 22:00 Review of Systems Constitutional: No symptom reported Ears, Nose, & Throat: No symptom reported Eyes: No symptom reported Neurological: No symptoms reported Pulmonary/Respiratory: Shortness of breath Cardiovascular: Chest pain Gastrointestinal: No symptom reported Genitourinary: No symptom reported Musculoskeletal: No symptom reported Skin: No symptom reported Psychiatric: No symptom reported Endocrine: No symptom reported Hematologic/Lymphatic: No symptom reported Vital Signs Vital Signs Date Time Temp Pulse Resp B/P (MAP) Pulse Ox O2 Delivery O2 Flow Rate FiO2 11/12/24 12:45 99 21 104/74 (84) 96 11/12/24 12:00 97.8 97.8 11/12/24 08:00 Room Air* 0 21 Physical Exam GENERAL: Alert and oriented x 3. No acute distress. EYES: PERRL, EOMI. Anicteric. HENT: Moist mucous membranes. LUNGS: Diminished breath sounds. CARDIOVASCULAR: Regular rate and rhythm. ABDOMEN: Soft, nontender and nondistended. EXTREMITIES: No edema. NEUROLOGIC: No focal neurological deficits. SKIN: Warm, dry. Labs/Diagnostic Data Labs Test 11/12/24 10:50 11/12/24 07:45 11/11/24 08:00 11/09/24 02:49 Range/Units Urine Opiates Screen Neg NEGATIVE Urine Fentanyl Screen Neg NEGATIVE Urine Barbiturates Screen Neg NEGATIVE Urine Phencyclidine Screen Neg NEGATIVE Urine Amphetamines Screen Neg NEGATIVE Urine Benzodiazepines Screen Neg NEGATIVE Urine Cocaine Screen Neg NEGATIVE Urine Cannabinoids Screen Neg NEGATIVE White Blood Count 9.8 4.4-10.8 10^3/uL Red Blood Count 5.22 H 4.0-5.20 10^6/uL Hemoglobin 13.6 12.2-16.2 g/dL Hematocrit 42.8 36.0-46.0 % Mean Corpuscular Volume 82.0 80.0-100.0 fL Mean Corpuscular Hemoglobin 26.1 L 28.0-32.0 pg Mean Corpuscular Hemoglobin Concent 31.8 L 32.0-36.0 g/dL Red Cell Distribution Width 16.3 H 11.8-14.3 % Platelet Count 458 H 140-450 10^3/uL Mean Platelet Volume 9.5 6.9-10.8 fL Neutrophils (%) (Auto) 65.2 37.0-80.0 % Lymphocytes (%) (Auto) 21.7 10.0-50.0 % Monocytes (%) (Auto) 9.0 0.0-12.0 % Eosinophils (%) (Auto) 3.9 0.0-7.0 % Basophils (%) (Auto) 0.2 0.0-2.0 % Neutrophils # (Auto) 6.4 1.6-8.6 10 ^3/uL Lymphocytes # (Auto) 2.1 0.4-5.4 10 ^3/uL Monocytes # (Auto) 0.9 0-1.3 10 ^3/uL Eosinophils # (Auto) 0.4 0-0.8 10 ^3/uL Basophils # (Auto) 0 0-0.2 10 ^3/uL Nucleated Red Blood Cells 0.0 % Sodium Level 140 136-145 mmol/L Potassium Level 4.7 3.5-5.1 mmol/L Chloride Level 105 98-107 mmol/L Carbon Dioxide Level 27 20-31 mmol/L Anion Gap 8 5-15 Blood Urea Nitrogen 17 9-23 mg/dL Creatinine 0.79 0.550-1.02 mg/dL Glomerular Filtration Rate Calc 93 >90 mL/min BUN/Creatinine Ratio 21.5 H 10.0-20.0 Serum Glucose 104 74-106 mg/dL Hemoglobin A1c 6.4 H <5.7 % A1C Calcium Level 9.2 8.7-10.4 mg/dL Magnesium Level 2.1 1.6-2.6 mg/dL Total Bilirubin 0.3 0.2-1.0 mg/dL Aspartate Amino Transferase (AST) 16 13-40 U/L Alanine Aminotransferase (ALT) 20 7-40 U/L Alkaline Phosphatase 93 46-116 U/L Total Protein 6.5 5.7-8.2 g/dL Albumin 3.5 3.2-4.8 g/dL Triglycerides Level 122 < 150 mg/dL Cholesterol Level 136 < 200 mg/dL LDL Cholesterol 88 < 100 mg/dL HDL Cholesterol 36 L 40-59 mg/dL Thyroid Stimulating Hormone (TSH) 2.01 0.55-4.78 uIU/mL Prothrombin Time 11.9 H 9.3-11.8 sec Prothrombin Time INR 1.14 0.9-1.15 Activated Partial Thromboplast Time 26.5 24.5-34.5 SEC Lactic Acid Level 1.7 0.4-2.0 mmol/L Phosphorus Level 4.1 2.4-5.1 mg/dL B-Type Natriuretic Peptide 552.22 0-100 pg/mL Troponin I High Sensitivity 13 </=34 ng/L Hepatitis B Surface Antigen Negative Negative Hepatitis C Antibody Reactive *A Negative Microbiology Date/Time Source Procedure Growth Status 11/11/24 11:56 Nose MRSA Screen - Final Complete 11/11/24 08:00 Blood Blood Culture - Preliminary NO GROWTH AFTER 24 HOURS OF INCUBATION. Resulted Assessment Acute on chronic decompensated HFrEF, NYHA class III. End-stage cardiomyopathy, ?Drug-induced. Severe tricuspid regurgitation. Moderate mitral regurgitation. History of left lower extremity DVT (on Eliquis). Amphetamine use. Tobacco use. Plan/Recommendation I agree with your ongoing assessment and care of plan. Patient has been seen by Falguni Manning NP on my behalf, her and I discussed the plan with the patient. At the time of assessment, the patient is off of vasopressor therapy since approximately 0715 this morning. Given this patient's history of active methamphetamine use and medical noncompliance, she is not a candidate for any invasive cardiac workup at this time. The patient should continue uninterrupted guideline directed medical therapy for CHF. The patient may qualify for an ICD if no improvement in EF within 3-6 months on uninterrupted GDMT. Patient will also need to establish a retail loss prevention officer in the outpatient setting. Transthoracic echocardiogram from 11/05/2024 reveals an EF of 10% with severe dilated left ventricle and RV dysfunction. Initiate guideline directed medical therapy for CHF as tolerated by blood pre ssure. Add MRA (spironolactone), with stable potassium level. * Avoid midodrine as this is contraindicated in HFrEF patient's. Strict intake and output, daily weights, maintain fluid restriction. Aggressive diuresis as tolerated. Close Cardiac surveillance. Risk factor modifications, counseled. Lifestyle changes. Adherence to medication. Additional plan as per the hospital course. A total of 45 minutes was spent reviewing the patient record, examining the patient, making a diagnostic and therapeutic plan, discussing this plan with medical personnel, following up on diagnostic studies and following the patient for clinical stability excluding any and all procedures. At least 50% of this time was spent in direct, [id number] contact. Plan discussed with: Patient NYHA Physical activity limitations: Class3(Marked) ordinary Date of Service: Nov 12, 2024 Billing Provider: NICOLE RANGEL MD Cardiology Common Codes: [id number] INP/OBS CARE (High) Cardiology Consultation Codes: [id number] CONSULT <45MIN NICOLE RANGEL MD Nov 12, 2024 13:56
[2024-11-13] VITALS (68 sets, daily range): BP systolic 82–129; BP diastolic 38–75; PULSE 78–107; RESP 12–24; TEMP 98–98.5; O2SAT 90–100
--- NOTE | 2024-11-13 08:57 | MEDREC ---
[facility] Intervention Section I [facility] Intervention: Review courses of therapy (DUE TO PROLONG QTc > 500 PLEASE CONSIDER SWITCHING AZITHROMYCIN TO DOXYCYCLINE ) FREDDIE ROGERS PHARMACIST Nov 13, 2024 08:56
[2024-11-13] MEDS: FUROSEMIDE 20 MG TAB PO SCH (10:38)
[2024-11-13] MEDS: EMPAGLIFLOZIN 10 MG TAB PO SCH (10:39)
[2024-11-13] MEDS: ONDANSETRON HCL 4 MG/2 ML VIAL IV PRN (13:32)
--- NOTE | 2024-11-13 18:36 | DVHPN2 ---
Subjective Off levophed from yesterday Reviewed: H&P, Labs Changes from previous H/P or p: No Changes Objective Vitals Vital Signs Date Time Temp Pulse Resp B/P (MAP) Pulse Ox O2 Delivery O2 Flow Rate FiO2 11/13/24 18:24 89 18 100 11/13/24 18:18 Room Air 11/13/24 18:18 0 21 11/13/24 18:00 104/64 (77) 11/13/24 16:00 98.3 98.3 Intake/Output Intake and Output 11/13/24 07:00 Intake Total 452 ml Output Total 3800 ml Balance -3348 ml Intake Oral 100 ml IV Total 352 ml Output Urine Total 3800 ml # Voids 1 General Appearance: Alert, Oriented X3 Lungs: Clear to auscultation Cardiovascular: Regular rate, Normal S1, Normal S2 Medications Current Medications Medications Dose Ordered Sig/Nevaeh Route Start Time Stop Time Status Last Admin Dose Admin Nitroglycerin 0.4 mg Q5MINP PRN SL 11/08/24 20:00 11/11/24 21:32 0.4 MG Morphine Sulfate 2 mg Q30M PRN IV 11/08/24 20:15 11/12/24 20:22 2 MG Albuterol 2.5 mg Q6HPRN PRN NEB 11/08/24 23:30 11/13/24 18:18 2.5 MG Azithromycin 250 ml @ 125 mls/hr DAILY IV 11/09/24 10:00 11/13/24 10:37 125 MLS/HR Ceftriaxone Sodium 50 ml @ 100 mls/hr DAILY@09 IV 11/09/24 09:00 11/13/24 09:28 100 MLS/HR Sacubitril/ Valsartan 1 tab BID PO 11/09/24 10:00 11/13/24 10:37 1 TAB Apixaban 5 mg BID PO 11/09/24 10:00 11/13/24 10:37 5 MG Aspirin 81 mg DAILY PO 11/09/24 10:00 11/13/24 10:38 81 MG Atorvastatin Calcium 20 mg HS PO 11/09/24 22:00 11/12/24 21:36 20 MG Acetylcysteine 100 mg Q6HR NEB 11/09/24 00:00 11/13/24 18:18 100 MG Acetaminophen/ Hydrocodone Bitart 1 tab Q4HPRN PRN PO 11/10/24 12:45 11/10/24 23:14 1 TAB Guaifenesin/ Codeine Phosphate 5 ml Q6HPRN PRN PO 11/10/24 12:45 11/10/24 18:35 5 ML Norepinephrine Bitartrate 250 ml @ 3.75 mls/hr Q24H IV 11/11/24 07:00 11/13/24 01:39 3.75 MLS/HR Empaglifozin 10 mg DAILY PO 11/13/24 10:00 11/13/24 10:39 10 MG Furosemide 20 mg DAILY PO 11/13/24 10:00 11/13/24 10:38 20 MG Ondansetron HCl 4 mg Q4HPRN PRN IV 11/13/24 13:30 11/13/24 13:32 4 MG Laboratory Results Laboratory Tests 11/12/24 07:45 Microbiology Microbiology Date/Time Source Procedure Growth Status 11/11/24 11:56 Nose MRSA Screen - Final Complete 11/11/24 08:00 Blood Blood Culture - Preliminary NO GROWTH AFTER 48 HOURS OF INCUBATION. Resulted Assessment/Plan Assessment/Plan #Acute on chronic congestive heart failure #Community-acquired pneumonia #Hypertension IV lasix BID>increase dose to 40mg BID>changed to oral IV abx rocephin and zithromax #Cardiogenic shock Off levophed from yesterday Continue oral lasix Holding carvedilol Critical care time was 50 minutes Plan discussed with: Patient My Orders Orders - TYREL NAM MD Procedure Category Date Status Time Ondansetron Hcl PHA 11/13/24 In Process (Zofran) 13:30 Transfer Orders XFER 11/13/24 Transmitted 16:50 Date of Service: Nov 13, 2024 Billing Provider: TYREL NAM MD Common Visit Codes: [id number] INP/OBS CARE(HIGH) TYREL NAM MD Nov 13, 2024 18:36
--- NOTE | 2024-11-13 19:43 | DVHPN2 ---
Progress Note - Dictate Date Seen: Nov 13, 2024 Medical Necessity Reason Pt with a Central, PICC or Fol: No Subjective Patient seen and examined at bedside. Breathing comfortably on room air. Overnight events reviewed. vital signs Vital Sign Date Time Temp Pulse Resp B/P (MAP) Pulse Ox O2 Delivery O2 Flow Rate FiO2 11/13/24 18:24 89 18 100 11/13/24 18:18 Room Air 11/13/24 18:18 0 21 11/13/24 18:00 104/64 (77) 11/13/24 16:00 98.3 98.3 Total Intake and Output 11/12/24 11/12/24 11/13/24 15:00 23:00 07:00 Intake Total 350 ml 102 ml Output Total 400 ml 1600 ml 1800 ml Balance -50 ml -1600 ml -1698 ml medications Current Medications Medications Dose Ordered Sig/Nevaeh Route Start Time Stop Time Status Last Admin Dose Admin Nitroglycerin 0.4 mg Q5MINP PRN SL 11/08/24 20:00 11/11/24 21:32 0.4 MG Morphine Sulfate 2 mg Q30M PRN IV 11/08/24 20:15 11/12/24 20:22 2 MG Albuterol 2.5 mg Q6HPRN PRN NEB 11/08/24 23:30 11/13/24 18:18 2.5 MG Azithromycin 250 ml @ 125 mls/hr DAILY IV 11/09/24 10:00 11/13/24 10:37 125 MLS/HR Ceftriaxone Sodium 50 ml @ 100 mls/hr DAILY@09 IV 11/09/24 09:00 11/13/24 09:28 100 MLS/HR Sacubitril/ Valsartan 1 tab BID PO 11/09/24 10:00 11/13/24 10:37 1 TAB Apixaban 5 mg BID PO 11/09/24 10:00 11/13/24 10:37 5 MG Aspirin 81 mg DAILY PO 11/09/24 10:00 11/13/24 10:38 81 MG Atorvastatin Calcium 20 mg HS PO 11/09/24 22:00 11/12/24 21:36 20 MG Acetylcysteine 100 mg Q6HR NEB 11/09/24 00:00 11/13/24 18:18 100 MG Acetaminophen/ Hydrocodone Bitart 1 tab Q4HPRN PRN PO 11/10/24 12:45 11/10/24 23:14 1 TAB Guaifenesin/ Codeine Phosphate 5 ml Q6HPRN PRN PO 11/10/24 12:45 11/10/24 18:35 5 ML Norepinephrine Bitartrate 250 ml @ 3.75 mls/hr Q24H IV 11/11/24 07:00 11/13/24 01:39 3.75 MLS/HR Empaglifozin 10 mg DAILY PO 11/13/24 10:00 11/13/24 10:39 10 MG Furosemide 20 mg DAILY PO 11/13/24 10:00 11/13/24 10:38 20 MG Ondansetron HCl 4 mg Q4HPRN PRN IV 11/13/24 13:30 11/13/24 13:32 4 MG objective Gen.: Patient lying in bed in no apparent distress. Breathing on room air. Head: Normocephalic, atraumatic. Eyes: EOMI/PERRLA. Ears: Normal hearing. Normal anatomy. Neck/trachea: Trachea midline, supple. Nose: Normal external anatomy. Mouth: Moist mucous membranes. Chest: Decreased air entry bilaterally. No wheezing or rhonchi. Cardiovascular: Positive S1, positive S2. Regular rate and rhythm. Abdomen: Positive bowel sounds in all 4 quadrants. Soft, non-tender, non- distended. : Deferred. Rectal: Deferred. Skin: Warm, dry. Intact. Extremities: 2+ radial pulses bilaterally. No lower extremity edema. Neuro: Awake, alert, oriented x3. No gross motor or sensory deficits. Cranial nerves II through XII intact. Gait not assessed. laboratory and microbiology Laboratory Tests 11/12/24 07:45 Test 11/12/24 07:45 Range/Units Serum Glucose 104 74-106 mg/dL Assessment/Plan Impression: Acute on chronic CHF exacerbation, systolic EF 10% Shock/cardiogenic hypotension Pneumonia, likely gram negative Atelectasis DVT, left lower extremity. Methamphetamine use Events: Breathing on room air Supplemental oxygen PRN Patient improving. Continue bronchodilators Mucomyst Continue antibiotics Incentive spirometry Lasix PRN for diuresis Monitor renal function Monitor electrolytes. Supplement as necessary. Monitor ins and outs. Eliquis for DVT prophylaxis Labs and imaging reviewed. Rest of plan as noted below. Plan: Supplemental oxygen PRN Titrate to keep O2 sats above 92%. Off pressors Keep SBP above 90 mmHg Continue bronchodilators. Continue antibiotics Incentive spirometry Monitor renal function. Monitor electrolytes. Supplement as necessary. Monitor ins and outs. Counseled against meth use. DVT prophylaxis - Eliquis. Prognosis: Guarded given patient's multiple co-morbidities. Rest of plan per hospitalist and other consultants. Thank you Dr. Sauceda, for allowing me to participate in this patient's care. Further recommendations will depend on the patient's clinical course. Please do not hesitate to contact me if you have any questions or concerns. This medical document was created using an electronic medical record system with [email or web address] dictation system. Although these documentations are being carefully reviewed, there may still be some phonetic and typographical changes. The errors are purely typographical, due to imperfection on the software program, and do not reflect any compromise in the patient's medical care. Plan discussed with: Patient, Spouse, Other (RUDDY Khan) GLENIS EARLY MD Nov 13, 2024 19:43
--- NOTE | 2024-11-13 23:37 | DVHPN2 ---
Progress Note - Dictate Date Seen: Nov 13, 2024 Medical Necessity Reason Pt with a Central, PICC or Fol: Yes Subjective Patient was seen and evaluated in follow up in the ICU. Patient is complaining of generalized discomfort. Patient off Levophed drip. Earlier this afternoon patient had 1 episode of N/V. vital signs Vital Sign Date Time Temp Pulse Resp B/P (MAP) Pulse Ox O2 Delivery O2 Flow Rate FiO2 11/13/24 18:24 89 18 100 11/13/24 18:18 Room Air 11/13/24 18:18 0 21 11/13/24 18:00 104/64 (77) 11/13/24 16:00 98.3 98.3 Total Intake and Output 11/12/24 11/12/24 11/13/24 15:00 23:00 07:00 Intake Total 350 ml 102 ml Output Total 400 ml 1600 ml 1800 ml Balance -50 ml -1600 ml -1698 ml medications Current Medications Medications Dose Ordered Sig/Nevaeh Route Start Time Stop Time Status Last Admin Dose Admin Nitroglycerin 0.4 mg Q5MINP PRN SL 11/08/24 20:00 11/11/24 21:32 0.4 MG Morphine Sulfate 2 mg Q30M PRN IV 11/08/24 20:15 11/12/24 20:22 2 MG Albuterol 2.5 mg Q6HPRN PRN NEB 11/08/24 23:30 11/13/24 18:18 2.5 MG Azithromycin 250 ml @ 125 mls/hr DAILY IV 11/09/24 10:00 11/13/24 10:37 125 MLS/HR Ceftriaxone Sodium 50 ml @ 100 mls/hr DAILY@09 IV 11/09/24 09:00 11/13/24 09:28 100 MLS/HR Sacubitril/ Valsartan 1 tab BID PO 11/09/24 10:00 11/13/24 10:37 1 TAB Apixaban 5 mg BID PO 11/09/24 10:00 11/13/24 10:37 5 MG Aspirin 81 mg DAILY PO 11/09/24 10:00 11/13/24 10:38 81 MG Atorvastatin Calcium 20 mg HS PO 11/09/24 22:00 11/12/24 21:36 20 MG Acetylcysteine 100 mg Q6HR NEB 11/09/24 00:00 11/13/24 18:18 100 MG Acetaminophen/ Hydrocodone Bitart 1 tab Q4HPRN PRN PO 11/10/24 12:45 11/10/24 23:14 1 TAB Guaifenesin/ Codeine Phosphate 5 ml Q6HPRN PRN PO 11/10/24 12:45 11/10/24 18:35 5 ML Norepinephrine Bitartrate 250 ml @ 3.75 mls/hr Q24H IV 11/11/24 07:00 11/13/24 01:39 3.75 MLS/HR Empaglifozin 10 mg DAILY PO 11/13/24 10:00 11/13/24 10:39 10 MG Furosemide 20 mg DAILY PO 11/13/24 10:00 11/13/24 10:38 20 MG Ondansetron HCl 4 mg Q4HPRN PRN IV 11/13/24 13:30 11/13/24 13:32 4 MG objective GENERAL: Alert and oriented x 3. No acute distress. EYES: PERRL, EOMI. Anicteric. HENT: Moist mucous membranes. LUNGS: Diminished breath sounds. CARDIOVASCULAR: Regular rate and rhythm. ABDOMEN: Soft, nontender and nondistended. EXTREMITIES: No edema. NEUROLOGIC: No focal neurological deficits. SKIN: Warm, dry. laboratory and microbiology Laboratory Tests 11/12/24 07:45 Test 11/12/24 07:45 Range/Units Serum Glucose 104 74-106 mg/dL Problem List Acute on chronic decompensated HFrEF, NYHA class III. End-stage cardiomyopathy, ?Drug-induced. Severe tricuspid regurgitation. Moderate mitral regurgitation. History of left lower extremity DVT (on Eliquis). Amphetamine use. Tobacco use. Assessment/Plan Continued all current supportive medical care. Morphine and [place] for pain management. Eliquis. Aspirin, Lipitor. IV antibiotics as ordered. Diuretics with Lasix. Vasopressors for hemodynamic support. Entresto. Additional plan as per the hospital course. Critical care time of 45 minutes provided to include time spent evaluation of patient at bedside, when appropriate patient/family education for diagnosis, treatment plan, review of pertinent medical information and discussion of care with specialty providers and PCP. Plan discussed with: Patient NICOLE RANGEL MD Nov 13, 2024 19:22
[2024-11-14] VITALS (17 sets, daily range): BP systolic 91–119; BP diastolic 51–70; PULSE 92–107; RESP 13–18; TEMP 97.5–98.6; O2SAT 82–100
--- NOTE | 2024-11-14 15:11 | ECG ---
[facility] Test Date: 2024-11-11 Test Time: 21:18:56 Pat Name: ANJALI CHAU Department: Respiratoy Room: 0290T B Gender: F Loan Originator: VICENTE : 1975 Requested By: TYREL NAM Order Number: [id number] Reading MD: Duglas Dorman Measurements Intervals [place] Rate: 100 P: 51 MN: 133 QRS: 45 QRSD: 149 T: -35 QT: 424 QTc: 547 Interpretive Statements Sinus tachycardia Left bundle branch block Electronically Signed On 11-16-2024 20:16:44 PDT by Duglas Dorman Please click the below link to view image of tracing.
--- NOTE | 2024-11-14 17:42 | DVHPN2 ---
Subjective In bed resting feeling better and vitals are stable Reviewed: H&P, Labs Changes from previous H/P or p: No Changes Objective Vitals Vital Signs Date Time Temp Pulse Resp B/P (MAP) Pulse Ox O2 Delivery O2 Flow Rate FiO2 11/14/24 17:19 97.6 94 16 105/56 (72) 98 97.6 11/14/24 11:18 Room Air* 0 21 Intake/Output Intake and Output 11/14/24 07:00 Intake Total 1170 ml Output Total 1050 ml Balance 120 ml Intake Oral 870 ml IV Total 300 ml Output Urine Total 1050 ml General Appearance: Alert, Oriented X3 Lungs: Clear to auscultation Cardiovascular: Regular rate, Normal S1, Normal S2 Medications Current Medications Medications Dose Ordered Sig/Nevaeh Route Start Time Stop Time Status Last Admin Dose Admin Nitroglycerin 0.4 mg Q5MINP PRN SL 11/08/24 20:00 11/11/24 21:32 0.4 MG Morphine Sulfate 2 mg Q30M PRN IV 11/08/24 20:15 11/12/24 20:22 2 MG Albuterol 2.5 mg Q6HPRN PRN NEB 11/08/24 23:30 11/14/24 11:18 2.5 MG Azithromycin 250 ml @ 125 mls/hr DAILY IV 11/09/24 10:00 11/14/24 09:41 125 MLS/HR Ceftriaxone Sodium 50 ml @ 100 mls/hr DAILY@09 IV 11/09/24 09:00 11/14/24 09:42 100 MLS/HR Sacubitril/ Valsartan 1 tab BID PO 11/09/24 10:00 11/14/24 09:42 1 TAB Apixaban 5 mg BID PO 11/09/24 10:00 11/14/24 09:42 5 MG Aspirin 81 mg DAILY PO 11/09/24 10:00 11/14/24 09:42 81 MG Atorvastatin Calcium 20 mg HS PO 11/09/24 22:00 11/13/24 21:05 20 MG Acetylcysteine 100 mg Q6HR NEB 11/09/24 00:00 11/14/24 11:18 100 MG Acetaminophen/ Hydrocodone Bitart 1 tab Q4HPRN PRN PO 11/10/24 12:45 11/10/24 23:14 1 TAB Guaifenesin/ Codeine Phosphate 5 ml Q6HPRN PRN PO 11/10/24 12:45 11/10/24 18:35 5 ML Empaglifozin 10 mg DAILY PO 11/13/24 10:00 11/14/24 09:42 10 MG Furosemide 20 mg DAILY PO 11/13/24 10:00 11/14/24 09:42 20 MG Ondansetron HCl 4 mg Q4HPRN PRN IV 11/13/24 13:30 11/13/24 13:32 4 MG Laboratory Results Laboratory Tests 11/12/24 07:45 Microbiology Microbiology Date/Time Source Procedure Growth Status 11/11/24 11:56 Nose MRSA Screen - Final Complete 11/11/24 08:00 Blood Blood Culture - Preliminary NO GROWTH AFTER 72 HOURS OF INCUBATION. Resulted Assessment/Plan Assessment/Plan #Acute on chronic congestive heart failure #Community-acquired pneumonia #Hypertension IV lasix BID>increase dose to 40mg BID>changed to oral IV abx rocephin and zithromax #Cardiogenic shock Off levophed Continue oral lasix Holding carvedilol If able to tolerate will plan to discharge tomorrow Plan discussed with: Patient Date of Service: Nov 14, 2024 Billing Provider: TYREL NAM MD Common Visit Codes: [id number] INP/OBS CARE(HIGH) TYREL NAM MD Nov 14, 2024 17:42
--- NOTE | 2024-11-14 22:32 | DVHPN2 ---
Progress Note - Dictate Date Seen: Nov 14, 2024 Medical Necessity Reason Pt with a Central, PICC or Fol: No Subjective Patient seen and examined at bedside. Breathing comfortably on room air. Overnight events reviewed. vital signs Vital Sign Date Time Temp Pulse Resp B/P (MAP) Pulse Ox O2 Delivery O2 Flow Rate FiO2 11/14/24 21:00 98.3 104 15 91/51 (64) 96 98.3 11/14/24 19:20 Room Air* 0 21 Total Intake and Output 11/13/24 11/13/24 11/14/24 15:00 23:00 07:00 Intake Total 690 ml 480 ml 0 ml Output Total 1050 ml Balance 690 ml -570 ml 0 ml medications Current Medications Medications Dose Ordered Sig/Nevaeh Route Start Time Stop Time Status Last Admin Dose Admin Nitroglycerin 0.4 mg Q5MINP PRN SL 11/08/24 20:00 11/11/24 21:32 0.4 MG Morphine Sulfate 2 mg Q30M PRN IV 11/08/24 20:15 11/12/24 20:22 2 MG Albuterol 2.5 mg Q6HPRN PRN NEB 11/08/24 23:30 11/14/24 19:20 2.5 MG Azithromycin 250 ml @ 125 mls/hr DAILY IV 11/09/24 10:00 11/14/24 09:41 125 MLS/HR Ceftriaxone Sodium 50 ml @ 100 mls/hr DAILY@09 IV 11/09/24 09:00 11/14/24 09:42 100 MLS/HR Sacubitril/ Valsartan 1 tab BID PO 11/09/24 10:00 11/14/24 21:08 1 TAB Apixaban 5 mg BID PO 11/09/24 10:00 11/14/24 21:08 5 MG Aspirin 81 mg DAILY PO 11/09/24 10:00 11/14/24 09:42 81 MG Atorvastatin Calcium 20 mg HS PO 11/09/24 22:00 11/14/24 21:08 20 MG Acetylcysteine 100 mg Q6HR NEB 11/09/24 00:00 11/14/24 19:20 100 MG Acetaminophen/ Hydrocodone Bitart 1 tab Q4HPRN PRN PO 11/10/24 12:45 11/10/24 23:14 1 TAB Guaifenesin/ Codeine Phosphate 5 ml Q6HPRN PRN PO 11/10/24 12:45 11/10/24 18:35 5 ML Empaglifozin 10 mg DAILY PO 11/13/24 10:00 11/14/24 09:42 10 MG Furosemide 20 mg DAILY PO 11/13/24 10:00 11/14/24 09:42 20 MG Ondansetron HCl 4 mg Q4HPRN PRN IV 11/13/24 13:30 11/13/24 13:32 4 MG objective Gen.: Patient lying in bed in no apparent distress. Breathing on room air. Head: Normocephalic, atraumatic. Eyes: EOMI/PERRLA. Ears: Normal hearing. Normal anatomy. Neck/trachea: Trachea midline, supple. Nose: Normal external anatomy. Mouth: Moist mucous membranes. Chest: Decreased air entry bilaterally. No wheezing or rhonchi. Cardiovascular: Positive S1, positive S2. Regular rate and rhythm. Abdomen: Positive bowel sounds in all 4 quadrants. Soft, non-tender, non- distended. : Deferred. Rectal: Deferred. Skin: Warm, dry. Intact. Extremities: 2+ radial pulses bilaterally. No lower extremity edema. Neuro: Awake, alert, oriented x3. No gross motor or sensory deficits. Cranial nerves II through XII intact. Gait not assessed. laboratory and microbiology Laboratory Tests 11/12/24 07:45 Test 11/12/24 07:45 Range/Units Serum Glucose 104 74-106 mg/dL Assessment/Plan Impression: Acute on chronic CHF exacerbation, systolic EF 10% Shock/cardiogenic hypotension Pneumonia, likely gram negative Atelectasis DVT, left lower extremity. Methamphetamine use Events: Breathing on room air Supplemental oxygen PRN Patient improving. Continue bronchodilators Mucomyst Continue antibiotics Antitussive PRN cough Incentive spirometry On Lasix to maintain euvolemia Monitor renal function Monitor electrolytes. Supplement as necessary. Monitor ins and outs. Eliquis for DVT prophylaxis Patient is stable for discharge from the pulmonary standpoint. Disposition per hospitalist. Labs and imaging reviewed. Rest of plan as noted below. Plan: Supplemental oxygen PRN Titrate to keep O2 sats above 92%. Off pressors Keep SBP above 90 mmHg Continue bronchodilators. Continue antibiotics Incentive spirometry Monitor renal function. Monitor electrolytes. Supplement as necessary. Monitor ins and outs. Counseled against meth use. DVT prophylaxis - Eliquis. Prognosis: Guarded given patient's multiple co-morbidities. Rest of plan per hospitalist and other consultants. Thank you Dr. Sauceda, for allowing me to participate in this patient's care. Further recommendations will depend on the patient's clinical course. Please do not hesitate to contact me if you have any questions or concerns. This medical document was created using an electronic medical record system with [employer] dictation system. Although these documentations are being carefully reviewed, there may still be some phonetic and typographical changes. The errors are purely typographical, due to imperfection on the software program, and do not reflect any compromise in the patient's medical care. Plan discussed with: Patient, Other (RUDDY Ugarte) GLENIS EARLY MD Nov 14, 2024 22:32
[2024-11-15] VITALS (14 sets, daily range): BP systolic 100–104; BP diastolic 63–89; PULSE 91–104; RESP 15–18; TEMP 97.7–98.5; O2SAT 96–100
--- NOTE | 2024-11-15 00:44 | DVHPN2 ---
Progress Note - Dictate Date Seen: Nov 14, 2024 Medical Necessity Reason Pt with a Central, PICC or Fol: No Subjective Patient was seen and evaluated in follow up. Patient has been downgraded to telemetry bed. Patient reports feeling better today. Patient is afebrile. vital signs Vital Sign Date Time Temp Pulse Resp B/P (MAP) Pulse Ox O2 Delivery O2 Flow Rate FiO2 11/15/24 00:15 91 18 100 11/15/24 00:05 Room Air 11/15/24 00:05 0 21 11/14/24 21:00 98.3 91/51 (64) 98.3 Total Intake and Output 11/14/24 11/14/24 11/15/24 15:00 23:00 07:00 Intake Total 300 ml Balance 300 ml medications Current Medications Medications Dose Ordered Sig/Nevaeh Route Start Time Stop Time Status Last Admin Dose Admin Nitroglycerin 0.4 mg Q5MINP PRN SL 11/08/24 20:00 11/11/24 21:32 0.4 MG Morphine Sulfate 2 mg Q30M PRN IV 11/08/24 20:15 11/12/24 20:22 2 MG Albuterol 2.5 mg Q6HPRN PRN NEB 11/08/24 23:30 11/15/24 00:05 2.5 MG Azithromycin 250 ml @ 125 mls/hr DAILY IV 11/09/24 10:00 11/14/24 09:41 125 MLS/HR Ceftriaxone Sodium 50 ml @ 100 mls/hr DAILY@09 IV 11/09/24 09:00 11/14/24 09:42 100 MLS/HR Sacubitril/ Valsartan 1 tab BID PO 11/09/24 10:00 11/14/24 21:08 1 TAB Apixaban 5 mg BID PO 11/09/24 10:00 11/14/24 21:08 5 MG Aspirin 81 mg DAILY PO 11/09/24 10:00 11/14/24 09:42 81 MG Atorvastatin Calcium 20 mg HS PO 11/09/24 22:00 11/14/24 21:08 20 MG Acetylcysteine 100 mg Q6HR NEB 11/09/24 00:00 11/15/24 00:05 100 MG Acetaminophen/ Hydrocodone Bitart 1 tab Q4HPRN PRN PO 11/10/24 12:45 11/10/24 23:14 1 TAB Guaifenesin/ Codeine Phosphate 5 ml Q6HPRN PRN PO 11/10/24 12:45 11/10/24 18:35 5 ML Empaglifozin 10 mg DAILY PO 11/13/24 10:00 11/14/24 09:42 10 MG Furosemide 20 mg DAILY PO 11/13/24 10:00 11/14/24 09:42 20 MG Ondansetron HCl 4 mg Q4HPRN PRN IV 11/13/24 13:30 11/13/24 13:32 4 MG objective GENERAL: Alert and oriented x 3. No acute distress. EYES: PERRL, EOMI. Anicteric. HENT: Moist mucous membranes. LUNGS: Diminished breath sounds. CARDIOVASCULAR: Regular rate and rhythm. ABDOMEN: Soft, nontender and nondistended. EXTREMITIES: No edema. NEUROLOGIC: No focal neurological deficits. SKIN: Warm, dry. laboratory and microbiology Laboratory Tests 11/12/24 07:45 Test 11/12/24 07:45 Range/Units Serum Glucose 104 74-106 mg/dL Problem List Acute on chronic decompensated HFrEF, NYHA class III. End-stage cardiomyopathy, ?Drug-induced. Severe tricuspid regurgitation. Moderate mitral regurgitation. History of left lower extremity DVT (on Eliquis). Amphetamine use. Tobacco use. Assessment/Plan Continued all current supportive medical care. Morphine and [place] for pain management. Eliquis. Aspirin, Lipitor. IV antibiotics as ordered. Diuretics with Lasix. Entresto. Additional plan as per the hospital course. Plan discussed with: Patient NICOLE RANGEL MD Nov 15, 2024 00:43
[2024-11-15 07:37] LABS: Chloride 106 mmol/L (98-107); Potassium 4.3 mmol/L (3.5-5.1); Sodium 142 mmol/L (136-145)
[2024-11-15 07:38] LABS: Anion Gap 8 (5-15); Calcium 9.6 mg/dL (8.7-10.4); Carbon Dioxide 28 mmol/L (20-31)
[2024-11-15 07:43] LABS: BUN/Creatinine Ratio 18.9 (10.0-20.0); Blood Urea Nitrogen 14 mg/dL (9-23)
[2024-11-15 07:44] LABS: Glucose 108 mg/dL (74-106)
[2024-11-15] MEDS ORDERED: ATOR20TA50 PO (13:46)
[2024-11-15] MEDS ORDERED: FURO20TA4 PO (13:46)
[2024-11-15] MEDS ORDERED: ASPI-325 PO (13:46)
[2024-11-15] MEDS ORDERED: EMPA1TAB PO (13:46)
--- NOTE | 2024-11-15 14:58 | DVHPN2 ---
Progress Note - Dictate Date Seen: Nov 15, 2024 Medical Necessity Reason Pt with a Central, PICC or Fol: No vital signs Vital Sign Date Time Temp Pulse Resp B/P (MAP) Pulse Ox O2 Delivery O2 Flow Rate FiO2 11/15/24 13:00 97.7 96 16 104/66 (79) 97 97.7 11/15/24 12:15 Room Air 11/15/24 12:15 0 21 Total Intake and Output 11/14/24 11/14/24 11/15/24 15:00 23:00 07:00 Intake Total 300 ml 0 ml 0 ml Balance 300 ml 0 ml 0 ml medications Current Medications Medications Dose Ordered Sig/Nevaeh Route Start Time Stop Time Status Last Admin Dose Admin Nitroglycerin 0.4 mg Q5MINP PRN SL 11/08/24 20:00 11/11/24 21:32 0.4 MG Morphine Sulfate 2 mg Q30M PRN IV 11/08/24 20:15 11/12/24 20:22 2 MG Albuterol 2.5 mg Q6HPRN PRN NEB 11/08/24 23:30 11/15/24 12:15 2.5 MG Azithromycin 250 ml @ 125 mls/hr DAILY IV 11/09/24 10:00 11/15/24 09:48 125 MLS/HR Ceftriaxone Sodium 50 ml @ 100 mls/hr DAILY@09 IV 11/09/24 09:00 11/15/24 08:26 100 MLS/HR Sacubitril/ Valsartan 1 tab BID PO 11/09/24 10:00 11/15/24 08:35 1 TAB Apixaban 5 mg BID PO 11/09/24 10:00 11/15/24 08:35 5 MG Aspirin 81 mg DAILY PO 11/09/24 10:00 11/15/24 08:35 81 MG Atorvastatin Calcium 20 mg HS PO 11/09/24 22:00 11/14/24 21:08 20 MG Acetylcysteine 100 mg Q6HR NEB 11/09/24 00:00 11/15/24 12:15 100 MG Acetaminophen/ Hydrocodone Bitart 1 tab Q4HPRN PRN PO 11/10/24 12:45 11/10/24 23:14 1 TAB Guaifenesin/ Codeine Phosphate 5 ml Q6HPRN PRN PO 11/10/24 12:45 11/10/24 18:35 5 ML Empaglifozin 10 mg DAILY PO 11/13/24 10:00 11/15/24 13:05 10 MG Furosemide 20 mg DAILY PO 11/13/24 10:00 11/14/24 09:42 20 MG Ondansetron HCl 4 mg Q4HPRN PRN IV 11/13/24 13:30 11/13/24 13:32 4 MG laboratory and microbiology Laboratory Tests 11/15/24 07:05 11/12/24 07:45 Test 11/15/24 07:05 Range/Units Serum Glucose 108 H 74-106 mg/dL Assessment/Plan Impression Acute hypoxemic respiratory failure Substance abuse Pneumonia Atelectasis DVT Patient seen and examined Events Low oxygen requirements On 2 liters nasal cannula No acute events Labs and imaging reviewed Management Supplemental oxygen Titrate to maintain sats 90% or above Incentive spirometry Antibiotics Bronchodilators Monitor renal function Monitor electrolytes Supplement as needed Continue anticoagulation therapy Okay to discharge from pulmonary standpoint DVT prophylaxis Plan discussed with: Patient VIOLETTE FLEMING MD Nov 15, 2024 14:58
--- NOTE | 2024-11-15 19:07 | DVHPN2 ---
Subjective In bed resting feeling better and vitals are stable Reviewed: H&P, Labs Changes from previous H/P or p: No Changes Objective Vitals Vital Signs Date Time Temp Pulse Resp B/P (MAP) Pulse Ox O2 Delivery O2 Flow Rate FiO2 11/15/24 18:56 104 16 100 11/15/24 18:50 Room Air 0.0 11/15/24 18:50 21 11/15/24 17:23 98.4 103/89 (94) 98.4 Intake/Output Intake and Output 11/15/24 07:00 Intake Total 300 ml Balance 300 ml Intake Oral 0 ml IV Total 300 ml General Appearance: Alert, Oriented X3 Lungs: Clear to auscultation Cardiovascular: Regular rate, Normal S1, Normal S2 Medications Current Medications Medications Dose Ordered Sig/Nevaeh Route Start Time Stop Time Status Last Admin Dose Admin Nitroglycerin 0.4 mg Q5MINP PRN SL 11/08/24 20:00 11/11/24 21:32 0.4 MG Morphine Sulfate 2 mg Q30M PRN IV 11/08/24 20:15 11/12/24 20:22 2 MG Albuterol 2.5 mg Q6HPRN PRN NEB 11/08/24 23:30 11/15/24 12:15 2.5 MG Azithromycin 250 ml @ 125 mls/hr DAILY IV 11/09/24 10:00 11/15/24 09:48 125 MLS/HR Ceftriaxone Sodium 50 ml @ 100 mls/hr DAILY@09 IV 11/09/24 09:00 11/15/24 08:26 100 MLS/HR Sacubitril/ Valsartan 1 tab BID PO 11/09/24 10:00 11/15/24 08:35 1 TAB Apixaban 5 mg BID PO 11/09/24 10:00 11/15/24 08:35 5 MG Aspirin 81 mg DAILY PO 11/09/24 10:00 11/15/24 08:35 81 MG Atorvastatin Calcium 20 mg HS PO 11/09/24 22:00 11/14/24 21:08 20 MG Acetylcysteine 100 mg Q6HR NEB 11/09/24 00:00 11/15/24 18:50 100 MG Acetaminophen/ Hydrocodone Bitart 1 tab Q4HPRN PRN PO 11/10/24 12:45 11/10/24 23:14 1 TAB Guaifenesin/ Codeine Phosphate 5 ml Q6HPRN PRN PO 11/10/24 12:45 11/10/24 18:35 5 ML Empaglifozin 10 mg DAILY PO 11/13/24 10:00 11/15/24 13:05 10 MG Furosemide 20 mg DAILY PO 11/13/24 10:00 11/14/24 09:42 20 MG Ondansetron HCl 4 mg Q4HPRN PRN IV 11/13/24 13:30 11/13/24 13:32 4 MG Laboratory Results Laboratory Tests 11/12/24 07:45 11/15/24 07:05 Chemistry Test 11/15/24 07:05 Calcium Level 9.6 mg/dL (8.7-10.4) Microbiology Microbiology Date/Time Source Procedure Growth Status 11/11/24 11:56 Nose MRSA Screen - Final Complete 11/11/24 08:00 Blood Blood Culture - Preliminary NO GROWTH AFTER 72 HOURS OF INCUBATION. Resulted Assessment/Plan Assessment/Plan #Acute on chronic congestive heart failure #Community-acquired pneumonia #Hypertension IV lasix BID>increase dose to 40mg BID>changed to oral IV abx rocephin and zithromax #Cardiogenic shock Off levophed Continue oral lasix restarted carvedilol Discharged home today Plan discussed with: Patient My Orders Orders - TYREL NAM MD Procedure Category Date Status Time Discharge DISCHARGE 11/15/24 Transmitted 13:46 Date of Service: Nov 15, 2024 Billing Provider: TYREL NAM MD Common Visit Codes: [id number] INP/OBS CARE(HIGH) TYREL NAM MD Nov 15, 2024 19:07
--- NOTE | 2024-11-15 22:33 | DVHPN2 ---
Progress Note - Dictate Date Seen: Nov 15, 2024 Medical Necessity Reason Pt with a Central, PICC or Fol: No Subjective Patient was seen and evaluated in follow up. Patient has no new complaints at this time. Patient denies any cardiac symptoms. Patient is cardiac stable for discharge. Telemetry reviewed. vital signs Vital Sign Date Time Temp Pulse Resp B/P (MAP) Pulse Ox O2 Delivery O2 Flow Rate FiO2 11/15/24 18:56 104 16 100 11/15/24 18:50 Room Air 0.0 11/15/24 18:50 21 11/15/24 17:23 98.4 103/89 (94) 98.4 Total Intake and Output 11/14/24 11/14/24 11/15/24 15:00 23:00 07:00 Intake Total 300 ml 0 ml 0 ml Balance 300 ml 0 ml 0 ml objective GENERAL: Alert and oriented x 3. No acute distress. EYES: PERRL, EOMI. Anicteric. HENT: Moist mucous membranes. LUNGS: Diminished breath sounds. CARDIOVASCULAR: Regular rate and rhythm. ABDOMEN: Soft, nontender and nondistended. EXTREMITIES: No edema. NEUROLOGIC: No focal neurological deficits. SKIN: Warm, dry. laboratory and microbiology Laboratory Tests 11/15/24 07:05 11/12/24 07:45 Test 11/15/24 07:05 Range/Units Serum Glucose 108 H 74-106 mg/dL Problem List Acute on chronic decompensated HFrEF, NYHA class III. End-stage cardiomyopathy, ?Drug-induced. Severe tricuspid regurgitation. Moderate mitral regurgitation. History of left lower extremity DVT (on Eliquis). Amphetamine use. Tobacco use. Assessment/Plan Continued all current supportive medical care. Morphine and [place] for pain management. Eliquis. Aspirin, Lipitor. IV antibiotics as ordered. Diuretics with Lasix. Entresto. Additional plan as per the hospital course. Plan discussed with: Patient NICOLE RANGEL MD Nov 15, 2024 22:33
--- NOTE | 2024-11-17 20:36 | DVHDS2 ---
Discharge Summary Date of Admission Nov 08, 2024 at 19:48 Date of Discharge: Nov 15, 2024 Labs/Diagnostic Data: Laboratory Results Test 11/15/24 07:05 11/12/24 10:50 11/12/24 07:45 11/11/24 08:00 Sodium Level 142 mmol/L (136-145) Potassium Level 4.3 mmol/L (3.5-5.1) Chloride Level 106 mmol/L (98-107) Carbon Dioxide Level 28 mmol/L (20-31) Anion Gap 8 (5-15) Blood Urea Nitrogen 14 mg/dL (9-23) Creatinine 0.74 mg/dL (0.550-1.02) Glomerular Filtration Rate Calc 100 mL/min (>90) BUN/Creatinine Ratio 18.9 (10.0-20.0) Serum Glucose 108 mg/dL (74-106) Calcium Level 9.6 mg/dL (8.7-10.4) Urine Opiates Screen Neg (NEGATIVE) Urine Fentanyl Screen Neg (NEGATIVE) Urine Barbiturates Screen Neg (NEGATIVE) Urine Phencyclidine Screen Neg (NEGATIVE) Urine Amphetamines Screen Neg (NEGATIVE) Urine Benzodiazepines Screen Neg (NEGATIVE) Urine Cocaine Screen Neg (NEGATIVE) Urine Cannabinoids Screen Neg (NEGATIVE) White Blood Count 9.8 10^3/uL (4.4-10.8) Red Blood Count 5.22 10^6/uL (4.0-5.20) Hemoglobin 13.6 g/dL (12.2-16.2) Hematocrit 42.8 % (36.0-46.0) Mean Corpuscular Volume 82.0 fL (80.0-100.0) Mean Corpuscular Hemoglobin 26.1 pg (28.0-32.0) Mean Corpuscular Hemoglobin Concent 31.8 g/dL (32.0-36.0) Red Cell Distribution Width 16.3 % (11.8-14.3) Platelet Count 458 10^3/uL (140-450) Mean Platelet Volume 9.5 fL (6.9-10.8) Neutrophils (%) (Auto) 65.2 % (37.0-80.0) Lymphocytes (%) (Auto) 21.7 % (10.0-50.0) Monocytes (%) (Auto) 9.0 % (0.0-12.0) Eosinophils (%) (Auto) 3.9 % (0.0-7.0) Basophils (%) (Auto) 0.2 % (0.0-2.0) Neutrophils # (Auto) 6.4 10 ^3/uL (1.6-8.6) Lymphocytes # (Auto) 2.1 10 ^3/uL (0.4-5.4) Monocytes # (Auto) 0.9 10 ^3/uL (0-1.3) Eosinophils # (Auto) 0.4 10 ^3/uL (0-0.8) Basophils # (Auto) 0 10 ^3/uL (0-0.2) Nucleated Red Blood Cells 0.0 % Hemoglobin A1c 6.4 % A1C (<5.7) Magnesium Level 2.1 mg/dL (1.6-2.6) Total Bilirubin 0.3 mg/dL (0.2-1.0) Aspartate Amino Transferase (AST) 16 U/L (13-40) Alanine Aminotransferase (ALT) 20 U/L (7-40) Alkaline Phosphatase 93 U/L (46-116) Total Protein 6.5 g/dL (5.7-8.2) Albumin 3.5 g/dL (3.2-4.8) Triglycerides Level 122 mg/dL (< 150) Cholesterol Level 136 mg/dL (< 200) LDL Cholesterol 88 mg/dL (< 100) HDL Cholesterol 36 mg/dL (40-59) Thyroid Stimulating Hormone (TSH) 2.01 uIU/mL (0.55-4.78) Prothrombin Time 11.9 sec (9.3-11.8) Prothrombin Time INR 1.14 (0.9-1.15) Activated Partial Thromboplast Time 26.5 SEC (24.5-34.5) Lactic Acid Level 1.7 mmol/L (0.4-2.0) Phosphorus Level 4.1 mg/dL (2.4-5.1) B-Type Natriuretic Peptide 552.22 pg/mL (0-100) Test 11/09/24 02:49 Troponin I High Sensitivity 13 ng/L (</=34) Hepatitis B Surface Antigen Negative (Negative) Hepatitis C Antibody Reactive (Negative) Other Laboratory Tests 11/15/24 07:05 11/12/24 07:45 Brief Hx & Hospital Course: 49-year-old female presents for evaluation of shortness for breath. Patient reports recently being discharged for exacerbation of congestive heart failure. She returns with worsening shortness for breath with associated productive cough with brown phlegm. Reports substernal chest pressure. No nausea or vomiting. No other acute complaints. During hospital stay was treated for severe HF exacerbation with EF 10%, on IV lasix and also pnueumonia with IV abx, she became hypotensive and had to be transferred to ICU on levophed for 2 days, then lasix held and antihypertensives, slowly restarted and she felt better and restarted oral lasix. Condition at Discharge: Good Final Diagnosis/Problems List acute systolic hf exacerbation gram negative pneumonia Discharge Disposition: Home Discharge Instruct/Medications Diet: Regular Activity: No Restrictions, As Tolerated Follow Up/Referral: PCP in 7 days Medications: jardiance, lasix, simvastatin, same home medications Discharge Statement: "Patient was advised to return to the ER or call 911 if any headaches, dizziness, shortness of breath, chest pain, abdominal pain, bleeding, fevers, or worsening of medical condition. Patient was counseled about treatment plan, medications, possible side effects, patientverbalized understanding. All questions were answered to the best of my ability. This discharge took greater then 30 minutes in planning, reviewing documentation, counseling the patient, and discussing with other team members." ASSESSMENT ASSESSMENT Assessment acute systolic hf exacerbation gram negative pneumonia Date of Service: Nov 15, 2024 Billing Provider: TYREL NAM MD Common Visit Codes: 49151-UBC/OBS DISCH DAY >30min TYREL NAM MD Nov 17, 2024 20:35
== END 2024-11-15 19:27 | disposition home or self-care (01) | DRG 194 ==
LOC: ER 17:51 → EDBD 17:51 → OVERFLOW 19:48 → TELE-WESTW 22:06 → ICU CENTRL 11-11 12:12 → DOU IN ICU 11-13 23:57 → TELE-WESTW 11-14 02:54
PROVIDERS: ADMIT Hospitalist; ATTEND Hospitalist
DX: I11.0 Hypertensive heart disease with heart failure (principal); R57.0 Cardiogenic shock; J15.69 Pneumonia due to other Gram-negative bacteria; I42.9 Cardiomyopathy, unspecified; I50.23 Acute on chronic systolic (congestive) heart failure; I25.110 Atherosclerotic heart disease of native coronary artery with unstable angina pectoris; I95.89 Other hypotension; I34.0 Nonrheumatic mitral (valve) insufficiency; Z87.891 Personal history of nicotine dependence; F15.10 Other stimulant abuse, uncomplicated; I44.7 Left bundle-branch block, unspecified; J98.4 Other disorders of lung; Z86.718 Personal history of other venous thrombosis and embolism; Z79.899 Other long term (current) drug therapy; J98.11 Atelectasis
CPT/HCPCS: 36415; 71045; 80048; 80053; 80061; 80307; 83036; 83605; 83735; 83880; 84100; 84443; 84484; 85025; 85610; 85730; 86803; 87040; 87081; 87340; 93005; 94640; 96365; 96375; 99291; G0378; J2405

== ENCOUNTER 2025-04-10 05:00 | Inpatient (IN) | payer MEDICAID ==
[~2025-04-10] VITALS: Ht 162.6 cm; Wt 76.2 kg
[~2025-04-10 05:00] MED LIST changes: +ASPI-325 PO; +ATOR20TA50 PO; +EMPA1TAB PO; +FURO20TA4 PO; +METO25TA93 PO
[2025-04-10 05:26] LABS: Hematocrit 39.0 % (36.0-46.0); Hemoglobin 12.5 g/dL (12.2-16.2); Mean Corpuscular Hemoglobin 26.7 pg (28.0-32.0); Mean Corpuscular Volume 83.5 fL (80.0-100.0); Nucleated Red Blood Cells % 0.1 %
--- NOTE | 2025-04-10 05:26 | ED.PDOC ---
Musculoskeletal HPI Comments 49-year-old female is brought in by EMS for chief complaint of bilateral leg swelling, associated shortness of breath, for 1 week. Patient endorses on progressively worsening symptoms after not taking her Lasix for 1 week. Swelling is commented to be localized around her thighs and buttocks area. She denies having any chest pain or further acute symptoms. Significant history of CAD, CHF, ACS, pneumonia, and LLE DVT. Chief Complaint: Lower Extremity Time Seen by MD: 05:15 Reviewed Notes: Nurses Notes, Panel Monitor Notes, Medications, Allergies Allergies: Coded Allergies: NO KNOWN ALLERGIES (Unverified , 11/05/24) Home Meds Active Scripts Potassium Chloride (Potassium Chloride ER) 10 Meq Tab, 10 MEQ PO BID, #90 TAB 3 Refills Prov:AVILA LYNNE MD 04/10/25 Furosemide (Furosemide) 20 Mg Tab, 1 TAB PO BID, #90 TAB 3 Refills Prov:AVLIA LYNNE MD 04/10/25 Furosemide (Furosemide) 20 Mg Tab, 20 MG PO DAILY for 90 Days, #90 TAB Prov:TYREL NAM MD 11/15/24 Empagliflozin (Jardiance) 10 Mg Tab, 10 MG PO DAILY for 90 Days, #90 TAB Prov:TYREL NAM MD 11/15/24 Aspirin (Aspirin Low Dose) 81 Mg Tab, 81 MG PO DAILY for 90 Days, #90 TAB Prov:TYREL NAM MD 11/15/24 Atorvastatin Calcium (ATORVASTATIN CALCIUM) 20 Mg Tab, 20 MG PO HS for 90 Days, #90 TAB Prov:TYREL NAM MD 11/15/24 Pantoprazole Sodium Sesquihydr (Pantoprazole Sodium) 40 Mg Tab, 40 MG PO DAILY@BREAKFAST, #30 TAB Prov:STEPHANIE MCCABE MD 11/07/24 Cefdinir (Cefdinir) 300 Mg Cap, 1 CAP PO BID, #20 CAP Prov:STEPHANIE MCCABE MD 11/07/24 Sulfamethoxazole W/Trimethopri (Bactrim Ds Tablet) 1 Tab Tb, 1 TAB PO BID, #14 TAB Prov:STEPHANIE MCCABE MD 11/07/24 Apixaban Base (ELIQUIS) 5 Mg Tab, 5 MG PO BID, #90 TAB Prov:GANAPAVARKULWINDERU,STEPHANIE MD 11/07/24 Sacubitril-Valsartan (Entresto 15-16 mg) 1 Cap Cap, 1 CAP PO QPM, #30 CAP Prov:STEPHANIE MCCABE MD 11/07/24 Carvedilol (Carvedilol) 3.125 Mg Tab, 1 TAB PO BID, #60 TAB 3 Refills Prov:STEPHANIE MCCABE MD 11/07/24 Reported Medications Metoprolol Succinate (Metoprolol Succinate Er) 25 Mg Tab, 1 TAB PO DAILY 11/08/24 Information Source: Patient, Emergency Med Personnel Mode of Arrival: EMS Location: Bilateral Extremity Location: Leg Timing: Days Prehospital treatment: 12 Lead EKG, Accucheck, Oval Or Circular Glass Cutter Severity: Moderate Able to Move Extremity: Yes Bear Weight: Fully Pain: None Past Medical History PAST MEDICAL HISTORY: CAD, CHF, HTN Past Medical History (Other): Pneumonia Left lower extremity DVT Surgical History: Denies all surgeries [employer] History: Denies all [employer] Hx Family History Family History: Reviewed,noncontributory to illness Social History Smoker: Non-Smoker Alcohol: Denies ETOH Use Drugs: Denies Drug Use Lives In: Home All Other Systems: Reviewed and Negative (Comprehensive review of systems are negative unless otherwise stated in HPI) Physical Exam General Appearance: No Apparent Distress, Normal HEENT: Normal ENT Inspection, Pharynx Normal, TMs Normal Neck: Full Range of Motion, Non-Tender, Normal, Normal Inspection Respiratory: Chest Non-Tender, Lungs Clear, No Accessory Muscle Use, No Res piratory Distress, Normal Breath Sounds Cardiovascular: No Edema, No JVD, No Murmur, No Gallop, Normal Peripheral Pulses, Regular Rate/Rhythm Breast Exam: Deferred Gastrointestinal: No Organomegaly, Non Tender, No Pulsatile Mass, Normal Bowel Sounds, Soft Genitalia: Deferred Pelvic: Deferred Rectal: Deferred Extremities: Leg edema (1+ edema to bilateral lower extremities), No calf tenderness, Normal capillary refill, Normal range of motion, Non-tender, Swelling (1+ edema to bilateral lower extremities) Musculoskeletal : Apperance: Normal Neurologic: Alert, roller print tender II-XII nml as Tested, No Motor Deficits, Normal Affect, Normal Mood, No Sensory Deficits Cerebellar Function: Normal Reflexes: Normal Skin: Dry, Normal Color, Warm Lymphatic: No Adenopathy Was a procedure done? Was a procedure done?: No Differential Diagnosis EXT Differential Diagnosis: Cellulitis, CHF, Deep Vein Thrombosis X-Ray, Labs, Meds, VS Vital Signs Date Time Temp Pulse Resp B/P (MAP) Pulse Ox O2 Delivery O2 Flow Rate FiO2 04/10/25 07:49 97.7 98 16 135/93 (107) 99 97.7 04/10/25 07:45 Room Air* 0 21 04/10/25 06:13 98.2 100 18 132/100 (111) 98 98.2 04/10/25 06:13 100 18 98 Room Air 04/10/25 06:12 132/100 04/10/25 05:06 97.9 98 18 149/101 96 97.9 Lab Test 04/10/25 05:34 04/10/25 05:09 Range/Units Urine Color Yellow Yellow Urine Clarity Turbid H Clear Urine pH 5.5 5.0-9.0 Urine Specific [place] 1.016 1.001-1.035 Urine Protein 1+ H Negative Urine Ketones Negative Negative Urine Blood Negative Negative /uL Urine Nitrite Negative Negative Urine Bilirubin Negative Negative Urine Urobilinogen Normal Negative mg/dL Urine Leukocyte Esterase Trace Negative /uL Urine RBC 1 0 - 4 /hpf Urine Microscopic WBC 3 0-5 /HPF Urine Squamous Epithelial Cells Mod <5 /hpf Urine Bacteria Few H None Seen /hpf Urine Hyaline Casts Few 0 - 2 /lpf Urine Mucus Few None Seen Urine Glucose Normal Normal mg/dL White Blood Count 5.9 4.4-10.8 10^3/uL Red Blood Count 4.67 4.0-5.20 10^6/uL Hemoglobin 12.5 12.2-16.2 g/dL Hematocrit 39.0 36.0-46.0 % Mean Corpuscular Volume 83.5 80.0-100.0 fL Mean Corpuscular Hemoglobin 26.7 L 28.0-32.0 pg Mean Corpuscular Hemoglobin Concent 32.0 32.0-36.0 g/dL Red Cell Distribution Width 16.1 H 11.8-14.3 % Platelet Count 223 140-450 10^3/uL Mean Platelet Volume 9.5 6.9-10.8 fL Neutrophils (%) (Auto) 71.6 37.0-80.0 % Lymphocytes (%) (Auto) 19.1 10.0-50.0 % Monocytes (%) (Auto) 8.1 0.0-12.0 % Eosinophils (%) (Auto) 0.4 0.0-7.0 % Basophils (%) (Auto) 0.8 0.0-2.0 % Neutrophils # (Auto) 4.2 1.6-8.6 10 ^3/uL Lymphocytes # (Auto) 1.1 0.4-5.4 10 ^3/uL Monocytes # (Auto) 0.5 0-1.3 10 ^3/uL Eosinophils # (Auto) 0 0-0.8 10 ^3/uL Basophils # (Auto) 0 0-0.2 10 ^3/uL Nucleated Red Blood Cells 0.1 % D-Dimer, Quantitative 2.45 H 0.0-0.49 mg/L FEU Sodium Level 141 136-145 mmol/L Potassium Level 3.6 3.5-5.1 mmol/L Chloride Level 106 98-107 mmol/L Carbon Dioxide Level 26 20-31 mmol/L Anion Gap 9 5-15 Blood Urea Nitrogen 9 9-23 mg/dL Creatinine 0.88 0.550-1.02 mg/dL Glomerular Filtration Rate Calc 82 >90 mL/min BUN/Creatinine Ratio 10.2 10.0-20.0 Serum Glucose 116 H 74-106 mg/dL Calcium Level 8.6 L 8.7-10.4 mg/dL Total Bilirubin 1.3 H 0.2-1.0 mg/dL Aspartate Amino Transferase (AST) 30 13-40 U/L Alanine Aminotransferase (ALT) 22 7-40 U/L Alkaline Phosphatase 111 46-116 U/L B-Type Natriuretic Peptide 4868.96 0-100 pg/mL Total Protein 6.6 5.7-8.2 g/dL Albumin 3.6 3.2-4.8 g/dL Current Medications Medications (Trade) Dose Ordered Sig/Nevaeh Route Start Time Stop Time Status Last Admin Furosemide (Lasix Tablet) 40 mg ONCE ONCE PO 04/10/25 06:00 04/10/25 06:01 DC 04/10/25 06:12 Time of 1ST Reevaluation: 05:45 Reevaluation 1ST: Unchanged Patient Education/Counseling: Diagnosis, Treatment Family Education/Counseling: No Family Present Departure 1 Departure Time of Disposition: 10:14 (Patient with worsening shortness of breath and very concerning chest CT. We will empirically cover patient with antibiotics and admit patient for further workup. We will not start fluids as clinically patient appears volume overloaded.) Impression: Primary Impression: Multifocal lung consolidation Additional Impressions: Shortness of breath CHF (congestive heart failure) Disposition: 09 ADMITTED INPATIENT Admit to: Tele Condition: Guarded e-Prescriptions Potassium Chloride (Potassium Chloride ER) 10 Meq Tab 10 MEQ PO BID, #90 TAB 3 Refills Prov: AVILA LYNNE MD 04/10/25 Furosemide (Furosemide) 20 Mg Tab 1 TAB PO BID, #90 TAB 3 Refills Prov: AVILA LYNNE MD 04/10/25 Critical Care Note Critical Care Time?: Yes Critical care comment: Acute shortness of breath Authorized and Performed by: Cathy Gil MD Total critical care time: Approximately 39 minutes Due to a high probability of clinically significant, life threatening deterioration, the patient required my highest level of preparedness to intervene emergently and I personally spent this critical care time directly and personally managing the patient. This critical care time included obtaining a history; examining the patient; pulse oximetry; ordering and review of studies; arranging urgent treatment with development of a management plan; evaluation of patient's response to treatment; frequent reassessment; and, discussions with other providers. This critical care time was performed to assess and manage the high probability of imminent, life-threatening deterioration that could result in multi-organ failure. It was exclusive of separately billable procedures and treating other patients and teaching time. Please see my other sections and the rest of the note for further information on patient assessment and treatment. Stability Stability form required: No Heart Score Heart Score: Heart Score Response (Comments) Value History N/A 0 EKG N/A 0 Age N/A 0 Risk Factors N/A 0 Troponin N/A 0 Total 0 I personally scribed for AVILA LYNNE MD ([email or web address]) on 04/10/25 at 05:26. Electronically submitted by Gaetano Garcia [email or web address]). AVILA LYNNE MD Apr 10, 2025 05:26 CATHY GIL MD Apr 10, 2025 10:15
[2025-04-10 05:43] LABS: Alanine Aminotransferase 22 U/L (7-40); Albumin 3.6 g/dL (3.2-4.8); Alkaline Phosphatase 111 U/L (46-116); Anion Gap 9 (5-15); BUN/Creatinine Ratio 10.2 (10.0-20.0); Blood Urea Nitrogen 9 mg/dL (9-23); Carbon Dioxide 26 mmol/L (20-31); Chloride 106 mmol/L (98-107); Potassium 3.6 mmol/L (3.5-5.1); Sodium 141 mmol/L (136-145); Total Protein 6.6 g/dL (5.7-8.2)
[2025-04-10 05:44] LABS: Bilirubin, Total 1.3 mg/dL (0.2-1.0); Calcium 8.6 mg/dL (8.7-10.4); Glucose 116 mg/dL (74-106)
[2025-04-10] MEDS ORDERED: POTA-228 PO (05:59)
[2025-04-10] MEDS ORDERED: FURO20TA3 PO (05:59)
[2025-04-10] MEDS: FUROSEMIDE 20 MG TAB PO ONE (06:12)
[2025-04-10 07:55] LABS: Urine Protein, UAD 1+ (Negative)
--- NOTE | 2025-04-10 08:07 | DVH ---
Bilateral lower extremity venous duplex Clinical History: BLE swelling Comparison: US LT LOWER DVT on DOS: 11/04/24 Technique: Duplex Doppler evaluation of the deep venous systems of both lower extremities from the common femora l veins to the popliteal veins including color Doppler and spectral/pulsed waveform analysis was perf ormed. Findings: RIGHT SIDE: The common femoral vein demonstrates appropriate compressibility and waveform variability. There is compressibility/patency of the great saphenous vein at the proximal thigh. The femoral vein demonstrates appropriate compressibility and waveform variability. The deep femoral vein demonstrates appropriate compressibility and waveform variability. The popliteal vein demonstrates appropriate compressibility and waveform variability. There is normal compressibility at the tibioperoneal trunk. LEFT SIDE: The common femoral vein demonstrates appropriate compressibility and waveform variability. There is compressibility/patency of the great saphenous vein at the proximal thigh. The femoral vein demonstrates appropriate compressibility and waveform variability. The deep femoral vein demonstrates appropriate compressibility and waveform variability. The popliteal vein demonstrates appropriate compressibility and waveform variability. There is normal compressibility at the tibioperoneal trunk. Popliteal cyst in the right popliteal fossa measuring 3.6 cm. Impression: No right or left femoropopliteal venous thrombosis.
[2025-04-10] MEDS: IOHEXOL 350 MG/ML 100ML IJ ONE (09:34)
--- NOTE | 2025-04-10 09:39 | DVH ---
Procedure: CT CT ANGIO CHEST CONTRAST Reason for study/Clinical History: sob, hx of dvt, elevated ddimer Comparison Study: XY CHEST PORTABLE on DOS: 11/11/24, XY CHEST PORTABLE on DOS: 11/08/24, XY CHEST PORTAB LE on DOS: 11/07/24, CT CT ANGIO CHEST CONTRAST on DOS: 11/05/24, XY CHEST TWO VIEWS ROUTINE on DOS: 10/08 Exam Date: 04/10/2025 09:[address] Angio Chest with Contrast TECHNIQUE: After the uneventful administration of intravenous contrast intravenously, CT imaging was performed t hrough the chest PE protocol. Coronal and sagittal reformations were performed by the technologist in cluding MIP and 3D reformatted images.All CT scans at this medical facility are performed using dose modulation techniques as appropriate to a performed exam including the following: Automated exposure control was utilized; adjustment of the MA and/or KV according to patient size; and use of iterative reconstruction technique. FINDINGS: Evaluation of the pulmonary arteries demonstrates no evidence of focal filling defect to suggest pulm onary embolus. Thoracic aorta appears normal in caliber and contour. No pericardial effusion. Small right pleural effusion. There is cardiomegaly Diffuse ill-defined pulmonary nodules with multiple areas of more consolidative lesions. More cavita ry appearing lesion with central crazy paving measuring 2.7 cm in the right upper lobe, similar appea ring lesion in the right lower lobe measuring 3.3 cm. Mediastinal adenopathy with lymph nodes measuring up to 1.4 cm. Visualized portions of the upper abdomen demonstrate gastric lap band. No suspicious osseous lesion. IMPRESSION: 1. Diffuse pulmonary abnormality with multiple ill-defined pulmonary nodules, cavitary type lesions a nd crazy paving. Differential considerations are broad including protein alveolar proteinosis, pneumo gemini such as pneumocystis jiroveci, organizing pneumonia, least likely malignancy given appearance. C onsider PET-CT examination given stability of findings from November 05, 2024 2. Mediastinal adenopathy, likely reactive 3. Small right pleural effusion 4. Cardiomegaly 5. No evidence of pulmonary embolism.
[2025-04-10 10:00] VITALS: PULSE 87; RESP 17; O2SAT 97
[2025-04-10] MEDS: SULFAMETHOX W/TRIMETH(800/160MG) DS TAB PO ONE (10:25)
[2025-04-10] MEDS: VANCOMYCIN 1GM/250ML KIT 250 ML IV ONE (10:25)
[2025-04-10] MEDS: CEFEPIME 2GM/50ML NS 50 ML IV ONE (10:27)
[2025-04-10] MEDS ORDERED: ACETAMINOPHEN 325 MG TAB PO PRN (12:15)
[2025-04-10] MEDS ORDERED: DOCUSATE SOD 100 MG CAP PO PRN (12:15)
[2025-04-10] MEDS ORDERED: NITROGLYCERIN 0.4 MG SL TAB SL PRN (12:15)
[2025-04-10] MEDS ORDERED: ONDANSETRON HCL 4 MG/2 ML VIAL IV PRN (12:15)
[2025-04-10] MEDS ORDERED: MORPHINE SULFATE INJ 2 MG/ml SYRG IV PRN (12:15)
[2025-04-10] MEDS: POTASSIUM CHL 20 Meq TABLET PO ONE (12:27)
--- NOTE | 2025-04-10 12:53 | DVHHP2 ---
History of Present Illness Reason for Visit: Lower extremity swelling History of Present Illness Breanna Ramey is a 49-year-old female with past medical history of CHF, DVT left leg, cardiomegaly, hyperlipidemia, and polysubstance abuse, who came to the hospital for bilateral lower extremity swelling. Patient states she came in due to bilateral lower extremity swelling that extends up her legs and shortness of breath for about 6 days. She also states she has black ant bites on her legs and buttock. There are 2 open wounds to her right buttock seen on examination. Patient was seen here in October of 2024 for heart failure. She states she has been taking most of her medications since discharge. Cardiovascular: CAD, CHF, hyperipidemia Heme/Onc: Other (DVT) Past Surgical History: Cholecystectomy, Other (Lap band) Smoke: <1 pack per day ALCOHOL: occassional Drugs: Other (Methamphetamines ) Lives: Other (boyfriend) Domestic Violence: Neg Review of Systems Constitutional: No: Fever, Chills, Sweats, Weakness, Malaise, Other Eyes: No: Pain, Vision change, Conjunctivae inflammation, Eyelid inflammation, Other, Redness ENT: No: Ear pain, Ear discharge, Nose pain, Nose discharge, Nose congestion, Mouth pain, Mouth swelling, Throat pain, Throat swelling, Other Respiratory: Shortness of breath; No: Cough, Dry, SOB with excertion, Wheezing, Hemoptysis, Pleuritic Pain, Sputum, Wheezing, Other Cardiovascular: Edema (bilateral lower extremities); No: Chest Pain, Palpitations, Orthopnea, Paroxysmal Noc. Dyspnea, Lt Headedness, Other Gastrointestinal: No: Nausea, Vomiting, Abdominal Pain, Diarrhea, Constipation, Melena, Hematochezia, Other Genitourinary: No Dysuria, No Frequency, No Incontinence, No Hematuria, No Retention, No Other Musculoskeletal: No: other, neck pain, shoulder pain, arm pain, back pain, hand pain, leg pain, foot pain Skin: No: Rash, Lesions, Jaundice, Bruising, Other Neurological: No: Weakness, Numbness, Incoordination, Change in speech, Confusion, Seizures, Other Allergies: Coded Allergies: NO KNOWN ALLERGIES (Unverified , 11/05/24) Exam Vital Signs Vital Signs Date Time Temp Pulse Resp B/P (MAP) Pulse Ox O2 Delivery O2 Flow Rate FiO2 04/10/25 11:45 90 16 125/94 (104) 97 04/10/25 10:00 Room Air* 0 21 04/10/25 10:00 97.8 97.8 General Appearance: Alert, Oriented X3, Cooperative, No acute distress HEENT: Atraumatic, PERRLA, Mucous membr. moist/pink Respiratory: Other (Diminished breath sounds) Cardiovascular: Normal S1, Normal S2, Other (ST) Abdominal: Normal bowel sounds, Soft, No tenderness, No hepatospenomegaly Extremities: No clubbing, No cyanosis, Normal pulses, Other (bilateral lower extremity edema) Skin: No rashes, No breakdown, No significant lesion (2 open wounds to right buttock) Neuro: Normal gait, Normal speech, Strength at 5/5 X4 ext Psych/Mental Status: Mental status NL, Mood NL Labs/Xrays Labs Test 04/10/25 10:16 04/10/25 05:34 04/10/25 05:09 Range/Units Lactic Acid Level 1.4 0.4-2.0 mmol/L Urine Color Yellow Yellow Urine Clarity Turbid H Clear Urine pH 5.5 5.0-9.0 Urine Specific [place] 1.016 1.001-1.035 Urine Protein 1+ H Negative Urine Ketones Negative Negative Urine Blood Negative Negative /uL Urine Nitrite Negative Negative Urine Bilirubin Negative Negative Urine Urobilinogen Normal Negative mg/dL Urine Leukocyte Esterase Trace Negative /uL Urine RBC 1 0 - 4 /hpf Urine Microscopic WBC 3 0-5 /HPF Urine Squamous Epithelial Cells Mod <5 /hpf Urine Bacteria Few H None Seen /hpf Urine Hyaline Casts Few 0 - 2 /lpf Urine Mucus Few None Seen Urine Glucose Normal Normal mg/dL White Blood Count 5.9 4.4-10.8 10^3/uL Red Blood Count 4.67 4.0-5.20 10^6/uL Hemoglobin 12.5 12.2-16.2 g/dL Hematocrit 39.0 36.0-46.0 % Mean Corpuscular Volume 83.5 80.0-100.0 fL Mean Corpuscular Hemoglobin 26.7 L 28.0-32.0 pg Mean Corpuscular Hemoglobin Concent 32.0 32.0-36.0 g/dL Red Cell Distribution Width 16.1 H 11.8-14.3 % Platelet Count 223 140-450 10^3/uL Mean Platelet Volume 9.5 6.9-10.8 fL Neutrophils (%) (Auto) 71.6 37.0-80.0 % Lymphocytes (%) (Auto) 19.1 10.0-50.0 % Monocytes (%) (Auto) 8.1 0.0-12.0 % Eosinophils (%) (Auto) 0.4 0.0-7.0 % Basophils (%) (Auto) 0.8 0.0-2.0 % Neutrophils # (Auto) 4.2 1.6-8.6 10 ^3/uL Lymphocytes # (Auto) 1.1 0.4-5.4 10 ^3/uL Monocytes # (Auto) 0.5 0-1.3 10 ^3/uL Eosinophils # (Auto) 0 0-0.8 10 ^3/uL Basophils # (Auto) 0 0-0.2 10 ^3/uL Nucleated Red Blood Cells 0.1 % D-Dimer, Quantitative 2.45 H 0.0-0.49 mg/L FEU Sodium Level 141 136-145 mmol/L Potassium Level 3.6 3.5-5.1 mmol/L Chloride Level 106 98-107 mmol/L Carbon Dioxide Level 26 20-31 mmol/L Anion Gap 9 5-15 Blood Urea Nitrogen 9 9-23 mg/dL Creatinine 0.88 0.550-1.02 mg/dL Glomerular Filtration Rate Calc 82 >90 mL/min BUN/Creatinine Ratio 10.2 10.0-20.0 Serum Glucose 116 H 74-106 mg/dL Calcium Level 8.6 L 8.7-10.4 mg/dL Total Bilirubin 1.3 H 0.2-1.0 mg/dL Aspartate Amino Transferase (AST) 30 13-40 U/L Alanine Aminotransferase (ALT) 22 7-40 U/L Alkaline Phosphatase 111 46-116 U/L B-Type Natriuretic Peptide 4868.96 0-100 pg/mL Total Protein 6.6 5.7-8.2 g/dL Albumin 3.6 3.2-4.8 g/dL Bilateral lower extremity venous duplex Findings: RIGHT SIDE: The common femoral vein demonstrates appropriate compressibility and waveform variability. There is compressibility/patency of the great saphenous vein at the proximal thigh. The femoral vein demonstrates appropriate compressibility and waveform variability. The deep femoral vein demonstrates appropriate compressibility and waveform variability. The popliteal vein demonstrates appropriate compressibility and waveform variability. There is normal compressibility at the tibioperoneal trunk. LEFT SIDE: The common femoral vein demonstrates appropriate compressibility and waveform variability. There is compressibility/patency of the great saphenous vein at the proximal thigh. The femoral vein demonstrates appropriate compressibility and waveform variability. The deep femoral vein demonstrates appropriate compressibility and waveform variability. The popliteal vein demonstrates appropriate compressibility and waveform variability. There is normal compressibility at the tibioperoneal trunk. Popliteal cyst in the right popliteal fossa measuring 3.6 cm. Impression: No right or left femoropopliteal venous thrombosis. Procedure: CT CT ANGIO CHEST CONTRAST FINDINGS: Evaluation of the pulmonary arteries demonstrates no evidence of focal filling defect to suggest pulmonary embolus. Thoracic aorta appears normal in caliber and contour. No pericardial effusion. Small right pleural effusion. There is cardiomegaly Diffuse ill-defined pulmonary nodules with multiple areas of more consolidative lesions. More cavitary appearing lesion with central crazy paving measuring 2.7 cm in the right upper lobe, similar appearing lesion in the right lower lobe measuring 3.3 cm. Mediastinal adenopathy with lymph nodes measuring up to 1.4 cm. Visualized portions of the upper abdomen demonstrate gastric lap band. No suspicious osseous lesion. IMPRESSION: 1. Diffuse pulmonary abnormality with multiple ill-defined pulmonary nodules, cavitary type lesions and crazy paving. Differential considerations are broad i ncluding protein alveolar proteinosis, pneumonia such as pneumocystis jiroveci, organizing pneumonia, least likely malignancy given appearance. Consider PET-CT examination given stability of findings from November 05, 2024 2. Mediastinal adenopathy, likely reactive 3. Small right pleural effusion 4. Cardiomegaly 5. No evidence of pulmonary embolism. SEPSIS Sepsis Screen Date sepsis recognized/suspect: Apr 10, 2025 Time Sepsis recognized/suspect: 1000 Recent Procedure: No On Antibiotic Therapy: No Respiratory Rate >20: No Heart Rate >90: No Temp<36 C (96.8 F) or >38.3 C: No SBP <90 or MAP <65 mmHG: No New Acute Mental Status Change: No Is the patient on CPAP, BIPAP,: No Physician Orders Electrocardigram (04/10/25 05:03) Bilat Lower Dvt (04/10/25 05:56) Ct Angio Chest Contrast (04/10/25 08:13) Blood Culture (04/10/25 10:12) Cefepime 2gm/50ml Ns (Maxipime 2gm/50ml) (04/10/25 10:15) Admit (04/10/25 12:06) Code Status (04/10/25 12:06) Sodium Chloride Lock (Saline Lock Ns) (04/10/25 14:00) Hydrocodone-Acet 5/325mg Tab ([place] /32 (04/10/25 12:15) Ondansetron Hcl (Zofran) (04/10/25 12:15) Docusate Sodium Capsule (Colace Capsule) (04/10/25 12:15) Complete Blood Count (04/11/25 04:00) Comprehensive Metabolic Panel (04/11/25 04:00) Cardiac Diet-2gna,Lofat,Lochol (04/10/25 Lunch) Condition: Serious (04/10/25 12:06) Acetaminophen Tablet (Tylenol Tablet) (04/10/25 12:15) Nitroglycerin Sublingual (Ntrostat Subli (04/10/25 12:15) Morphine Sulfate Injection (04/10/25 12:15) Stat Ekg For Chest Pain (04/10/25 12:06) Notify Md Of Changes From Base (04/10/25 12:06) Marketing Producer For 24 Hours (04/10/25 12:06) Emergency Dysrhythmia Protocol (04/10/25 12:06) Rhythm Strips Once Every Shift (04/10/25 12:06) Oxygen By Nasal Cannula (04/10/25 12:06) Furosemide Injection (Lasix Injection) (04/11/25 10:00) Potassium Er Tablet (Klor-Con Tablet) (04/10/25 12:15) Magnesium (04/11/25 04:00) Maintain Fluid Restrictions QSHIFT (04/10/25 12:06) Daily Weight (04/10/25 12:06) Apixaban (Eliquis) (04/10/25 22:00) Aspirin Enteric Coated Tablet (Ecotrin E (04/11/25 10:00) Atorvastatin (Lipitor) (04/10/25 22:00) Carvedilol Tablet (Coreg Tablet) (04/10/25 22:00) Vital Signs Date Time Temp Pulse Resp B/P (MAP) Pulse Ox O2 Delivery O2 Flow Rate FiO2 04/10/25 11:45 90 16 125/94 (104) 97 04/10/25 10:00 87 17 97 Room Air* 0 21 04/10/25 10:00 97.8 87 16 113/84 (94) 97 97.8 04/10/25 07:49 97.7 98 16 135/93 (107) 99 97.7 04/10/25 07:45 Room Air* 0 21 04/10/25 06:13 98.2 100 18 132/100 (111) 98 98.2 04/10/25 06:13 100 18 98 Room Air 04/10/25 06:12 132/100 04/10/25 05:06 97.9 98 18 149/101 96 97.9 Laboratory Tests Test 04/10/25 05:09 04/10/25 10:16 White Blood Count 5.9 10^3/uL (4.4-10.8) Lactic Acid Level 1.4 mmol/L (0.4-2.0) Medications Medications Dose Ordered Sig/Nevaeh Route Start Time Stop Time Status Last Admin Dose Admin Cefepime HCl 50 ml @ 12.5 mls/hr ONCE ONCE IV 04/10/25 10:15 04/10/25 14:14 04/10/25 10:27 12.5 MLS/HR Furosemide 40 mg ONCE ONCE PO 04/10/25 06:00 04/10/25 06:01 DC 04/10/25 06:12 40 MG Trimethoprim/ Sulfamethoxazole 1 tab ONCE ONCE PO 04/10/25 10:15 04/10/25 10:16 DC 04/10/25 10:25 1 TAB Vancomycin HCl 250 ml @ 250 mls/hr ONCE ONCE IV 04/10/25 10:15 04/10/25 11:14 DC 04/10/25 10:25 250 MLS/HR Assessment/Plan Assessment/Plan Assessment: CHF (congestive heart failure) exacerbation, Transaminitis, Hyperbilirubinemia, Elevated D-Dimer, Chronic methamphetamine abuse, H/O DVT, Plan: Admit to Tele, IV Lasix, Daily weight, Fluid restrictions, Wound care consult, Wound culture, IV antibiotics, Mange/Monitor electrolytes closely, Home medications reconciled, Plan discussed with: Patient My Orders Orders - MAURICE ANDRE Procedure Category Date Status Time Admit ADMIT 04/10/25 Transmitted 12:06 Code Status CODE 04/10/25 Transmitted 12:06 Sodium Chloride Lock PHA 04/10/25 Transmitted (Saline Lock Ns) 14:00 Hydrocodone-Acet PHA 04/10/25 Transmitted 5/325mg Tab ([place] 12:15 Ondansetron Hcl PHA 04/10/25 Transmitted (Zofran) 12:15 Docusate Sodium PHA 04/10/25 Transmitted Capsule (Colace 12:15 Complete Blood Count LAB 04/11/25 Verified 04:00 Comprehensive LAB 04/11/25 Verified Metabolic Panel 04:00 Cardiac DIET 04/10/25 Transmitted Diet-2gna,Lofat,Lochol Lunch Condition: Serious MELIZA 04/10/25 Transmitted 12:06 Acetaminophen Tablet PHA 04/10/25 Transmitted (Tylenol Tablet) 12:15 Nitroglycerin PHA 04/10/25 Transmitted Sublingual (Ntrostat 12:15 Morphine Sulfate PHA 04/10/25 Transmitted Injection 12:15 Stat Ekg For Chest MELIZA 04/10/25 Transmitted Pain 12:06 Notify Md Of Changes [facility] 04/10/25 Transmitted From Base 12:06 Marketing Producer For MELIZA 04/10/25 Transmitted 24 Hours 12:06 Emergency Dysrhythmia MELIZA 04/10/25 Transmitted Protocol 12:06 Rhythm Strips Once MELIZA 04/10/25 Transmitted Every Shift 12:06 Oxygen By Nasal RT 04/10/25 Transmitted Cannula 12:06 Furosemide Injection PHA 04/11/25 Transmitted (Lasix Injection) 10:00 Potassium Er Tablet PHA 04/10/25 Transmitted (Klor-Con Tablet) 12:15 Magnesium LAB 04/11/25 Verified 04:00 Maintain Fluid MELIZA 04/10/25 Transmitted Restrictions 12:06 Daily Weight MELIZA 04/10/25 Transmitted 12:06 Apixaban (Eliquis) PHA 04/10/25 Transmitted 22:00 Aspirin Enteric PHA 04/11/25 Transmitted Coated Tablet 10:00 Atorvastatin (Lipitor) PHA 04/10/25 Transmitted 22:00 Carvedilol Tablet PHA 04/10/25 Transmitted (Coreg Tablet) 22:00 Date of Service: Apr 10, 2025 Billing Provider: MAURICE ANDRE Common Visit Codes: [id number] INP/OBS CARE (MOD) MAURICE ANDRE HAND TUBE BENDER Apr 10, 2025 12:53
[2025-04-10 13:05] VITALS: BP 131/100; PULSE 86; RESP 18; TEMP 97.5; O2SAT 99
[2025-04-10] MEDS: CLINDAMYCIN 600MG IV 50 ML IV SCH (14:23)
[2025-04-10] MEDS: SODIUM CHLOR 0.9% PF (SALINE LOCK) 10ML VIAL/SYR IV SCH (14:23)
[2025-04-10 14:31] VITALS: BP 131/100; PULSE 86; RESP 18; TEMP 97.5; O2SAT 99
[2025-04-10 16:43] VITALS: BP 126/91; PULSE 89; RESP 18; TEMP 98.1; O2SAT 99
[2025-04-10 18:38] LABS: Cannabinoid Screen, Urine Neg (NEGATIVE)
[2025-04-10 18:43] LABS: Amphetamine Screen, Urine Pos (NEGATIVE); Barbiturate Scree,Urine Neg (NEGATIVE); Benzodiazephine Screen, Urine Neg (NEGATIVE); Cocaine Screen, Urine Neg (NEGATIVE); Opiate Scree,Urine Neg (NEGATIVE); Phencyclidine Screen, Urine Neg (NEGATIVE)
[2025-04-10 20:00] VITALS: PULSE 101; PULSE 107; RESP 18; O2SAT 100
[2025-04-10] MEDS: APIXABAN 5 MG TAB PO SCH (21:30)
[2025-04-10] MEDS: ATORVASTATIN 20 MG TAB PO SCH (21:31)
[2025-04-10] MEDS: CARVEDILOL 3.125 MG TAB PO SCH (21:32)
[2025-04-10 21:36] VITALS: BP 127/78; PULSE 101; RESP 18; TEMP 98.6; O2SAT 100
[2025-04-11] VITALS (8 sets, daily range): BP systolic 100–121; BP diastolic 69–88; PULSE 52–94; RESP 18–20; TEMP 97.7–98.1; O2SAT 94–100
[2025-04-11 07:17] LABS: Mean Corpuscular Hemoglobin 26.7 pg (28.0-32.0); Nucleated Red Blood Cells % 0.1 %
[2025-04-11 07:20] LABS: Hematocrit 38.1 % (36.0-46.0); Hemoglobin 12.3 g/dL (12.2-16.2); Mean Corpuscular Volume 82.5 fL (80.0-100.0)
[2025-04-11 07:34] LABS: Alanine Aminotransferase 22 U/L (7-40); Albumin 3.5 g/dL (3.2-4.8); Alkaline Phosphatase 103 U/L (46-116); Anion Gap 9 (5-15); BUN/Creatinine Ratio 14.1 (10.0-20.0); Blood Urea Nitrogen 13 mg/dL (9-23); Carbon Dioxide 27 mmol/L (20-31); Chloride 103 mmol/L (98-107); Glucose 90 mg/dL (74-106); Magnesium 1.8 mg/dL (1.6-2.6); Potassium 4.1 mmol/L (3.5-5.1); Sodium 139 mmol/L (136-145); Total Protein 6.3 g/dL (5.7-8.2)
[2025-04-11 07:35] LABS: Bilirubin, Total 1.0 mg/dL (0.2-1.0)
[2025-04-11 07:36] LABS: Calcium 8.4 mg/dL (8.7-10.4)
[2025-04-11] MEDS: ASPirin-EC 81 mg tab PO SCH (08:15)
[2025-04-11] MEDS: FUROSEMIDE 40 MG/4 ML VIAL IV SCH (08:15)
[2025-04-11] MEDS: HYDROcodone-ACET 5/325MG TAB PO PRN (09:42)
--- NOTE | 2025-04-11 11:48 | DVHPN2 ---
Reviewed: Care Plan, H&P, Labs, Medications, Previous Orders, Radiology Changes from previous H/P or p: No Changes Eyes: No Pain, No Vision change, No Conjunctivae inflammation, No Eyelid inflammation, No Other, No Redness ENT: No Ear pain, No Ear discharge, No Nose pain, No Nose discharge, No Nose congestion, No Mouth pain, No Mouth swelling, No Throat pain, No Throat swelling, No Other Cardiovascular: No Chest Pain, No Palpitations, No Orthopnea, No Paroxysmal Noc. Dyspnea; Edema (bilateral lower extremities); No Lt Headedness, No Other Respiratory: No Cough, No Dry; Shortness of breath; No SOB with excertion, No Wheezing, No Hemoptysis, No Pleuritic Pain, No Sputum, No Other Gastrointestinal: No Nausea, No Vomiting, No Abdominal Pain, No Diarrhea, No Constipation, No Melena, No Hematochezia, No Other Genitourinary: No Dysuria, No Frequency, No Incontinence, No Hematuria, No Retention, No Other Musculoskeletal: No other, No neck pain, No shoulder pain, No arm pain, No back pain, No hand pain, No leg pain, No foot pain Skin: No Rash, No Lesions, No Jaundice, No Bruising, No Other Objective Vitals Vital Signs Date Time Temp Pulse Resp B/P (MAP) Pulse Ox O2 Delivery O2 Flow Rate FiO2 04/11/25 08:41 98.1 88 20 118/84 (95) 95 98.1 04/10/25 20:00 Room Air* 0 21 Intake/Output Intake and Output 04/11/25 07:00 Intake Total 1100 ml Output Total 900 ml Balance 200 ml Intake Oral 950 ml IV Total 150 ml Output Urine Total 900 ml # Voids 6 Medications Current Medications Medications Dose Ordered Sig/Nevaeh Route Start Time Stop Time Status Last Admin Dose Admin Sodium Chloride 10 ml Q8HR IV 04/10/25 14:00 04/11/25 05:58 10 ML Acetaminophen/ Hydrocodone Bitart 1 tab Q4HP PRN PO 04/10/25 12:15 04/11/25 09:42 1 TAB Ondansetron HCl 4 mg Q4HP PRN IV 04/10/25 12:15 Docusate Sodium 100 mg BIDPRN PRN PO 04/10/25 12:15 Acetaminophen 650 mg Q6HP PRN PO 04/10/25 12:15 Nitroglycerin 0.4 mg Q5MINP PRN SL 04/10/25 12:15 Morphine Sulfate 2 mg Q30M PRN IV 04/10/25 12:15 Furosemide 40 mg DAILY IV 04/11/25 10:00 04/11/25 08:15 40 MG Apixaban 5 mg BID PO 04/10/25 22:00 04/11/25 08:14 5 MG Aspirin 81 mg DAILY PO 04/11/25 10:00 04/11/25 08:15 81 MG Atorvastatin Calcium 20 mg HS PO 04/10/25 22:00 04/10/25 21:31 20 MG Carvedilol 3.125 mg BID PO 04/10/25 22:00 04/11/25 08:15 3.125 MG Clindamycin Phosphate 50 ml @ 50 mls/hr Q8HR IV 04/10/25 14:00 04/11/25 05:57 50 MLS/HR Laboratory Results Laboratory Tests 04/11/25 05:15 Chemistry Test 04/11/25 05:15 Albumin 3.5 g/dL (3.2-4.8) Calcium Level 8.4 mg/dL (8.7-10.4) L Magnesium Level 1.8 mg/dL (1.6-2.6) Total Protein 6.3 g/dL (5.7-8.2) LFT Test 04/11/25 05:15 Alanine Aminotransferase (ALT) 22 U/L (7-40) Alkaline Phosphatase 103 U/L (46-116) Aspartate Amino Transferase (AST) 23 U/L (13-40) Total Bilirubin 1.0 mg/dL (0.2-1.0) Urinalysis Test 04/10/25 05:34 Urine Color Yellow (Yellow) Urine Clarity Turbid (Clear) H Urine pH 5.5 (5.0-9.0) Urine Specific [place] 1.016 (1.001-1.035) Urine Protein 1+ (Negative) H Urine Ketones Negative (Negative) Urine Blood Negative /uL (Negative) Urine Nitrite Negative (Negative) Urine Bilirubin Negative (Negative) Urine Urobilinogen Normal mg/dL (Negative) Urine Leukocyte Esterase Trace /uL (Negative) Urine RBC 1 /hpf (0 - 4) Urine Microscopic WBC 3 /HPF (0-5) Urine Squamous Epithelial Cells Mod /hpf (<5) Urine Bacteria Few /hpf (None Seen) H Urine Hyaline Casts Few /lpf (0 - 2) Urine Mucus Few (None Seen) Urine Glucose Normal mg/dL (Normal) Microbiology Microbiology Date/Time Source Procedure Growth Status 04/10/25 10:38 Blood Blood Culture - Preliminary NO GROWTH AFTER 24 HOURS OF INCUBATION. Resulted Labs and/or images reviewed: Labs reviewed by me, Image(s) reviewed by me Assessment/Plan Assessment/Plan Acute hypoxic respiratory failure: Oxygen by nasal cannula Acute CHF exacerbation BNP 4868: Lasix Coreg Entresto consult for Dr. Dasha Mendoza Elevated D-dimer 2.45 DVT ruled out PE ruled out Chronic current meth abuse: Counseling Blood cultures negative Hypercholesterolemia Chronic current history of smoking: Counseling History of polysubstance abuse Time Spent 50 minutes Advanced care planning time 20 mts Plan discussed with: Patient My Orders Orders - TOYIN CURRIE MD Procedure Category Date Status Time * Cardiology Consult CONS 04/11/25 Verified 11:43 Date of Service: Apr 11, 2025 Billing Provider: TOYIN CURRIE MD Common Visit Codes: [id number] INP/OBS CARE(HIGH) Secondary Visit Codes: [id number] CARE PLAN 30 MINUTES TOYIN CURRIE MD Apr 11, 2025 11:48
--- NOTE | 2025-04-11 13:34 | DVHCONRES ---
Date Seen: Apr 11, 2025 Resident Creating Document: KIMMY ROBIN RESIDENT Referring Physician Dr. Silva History of Present Illness 49-year-old female presented to the ER with a chief complaint of bilateral lower extremity swelling and shortness of breaths for the past week. Patient is homeless, she thinks something bit her on her bilateral posterior thighs and buttocks and since then she has been experiencing worsening lower extremity swelling. Associated symptoms include shortness of breaths, shortness of breaths with exertion but denies fever or chills, nausea vomiting, constipation or diarrhea at this time. She does take Lasix 20 mg daily at home. Does not follow up with the support associate. Last use methamphetamine was 5 days back. Cardiology consulted for CHF. Last known echocardiogram: 11/05/2024 lvef 10% by visual estimate,severe dilated LV, end stage cardimyopathy, RV dysfunction, moderate mitral regurg, severe tricuspd regurg Past medical history: HFrEF-10% 11/05/2024, end-stage cardiomyopathy, RV dysfunction, moderate MR, severe TR, hypertension, dyslipidemia, lower extremity DVT 11/2024 on Eliquis Home medications: Aspirin 81, Lasix 20 mg, atorvastatin 20 mg PCP: Dr. Kaur Patient seen and examined at bedside. Bilateral decreased breath sounds, abdomen is distended but nontender, lower extremity pitting edema 2+. Family History: FH: kidney disease Allergies: Coded Allergies: NO KNOWN ALLERGIES (Unverified , 11/05/24) Home Meds Active Scripts Potassium Chloride (Potassium Chloride ER) 10 Meq Tab, 10 MEQ PO BID, #90 TAB 3 Refills Prov:AVILA LYNNE MD 04/10/25 Furosemide (Furosemide) 20 Mg Tab, 1 TAB PO BID, #90 TAB 3 Refills Prov:AVILA LYNNE MD 04/10/25 Furosemide (Furosemide) 20 Mg Tab, 20 MG PO DAILY for 90 Days, #90 TAB Prov:TYREL NAM MD 11/15/24 Empagliflozin (Jardiance) 10 Mg Tab, 10 MG PO DAILY for 90 Days, #90 TAB Prov:TYREL NAM MD 11/15/24 Aspirin (Aspirin Low Dose) 81 Mg Tab, 81 MG PO DAILY for 90 Days, #90 TAB Prov:TYREL ANM MD 11/15/24 Atorvastatin Calcium (ATORVASTATIN CALCIUM) 20 Mg Tab, 20 MG PO HS for 90 Days, #90 TAB Prov:TYREL NAM MD 11/15/24 Pantoprazole Sodium Sesquihydr (Pantoprazole Sodium) 40 Mg Tab, 40 MG PO DAILY@BREAKFAST, #30 TAB Prov:STEPHANIE MCCABE MD 11/07/24 Cefdinir (Cefdinir) 300 Mg Cap, 1 CAP PO BID, #20 CAP Prov:STEPHANIE MCCABE MD 11/07/24 Sulfamethoxazole W/Trimethopri (Bactrim Ds Tablet) 1 Tab Tb, 1 TAB PO BID, #14 TAB Prov:STEPHANIE MCCABE MD 11/07/24 Apixaban Base (ELIQUIS) 5 Mg Tab, 5 MG PO BID, #90 TAB Prov:STEPHANIE MCCABE MD 11/07/24 Sacubitril-Valsartan (Entresto 15-16 mg) 1 Cap Cap, 1 CAP PO QPM, #30 CAP Prov:STEPHANIE MCCABE MD 11/07/24 Carvedilol (Carvedilol) 3.125 Mg Tab, 1 TAB PO BID, #60 TAB 3 Refills Prov:STEPHANIE MCCABE MD 11/07/24 Reported Medications Metoprolol Succinate (Metoprolol Succinate Er) 25 Mg Tab, 1 TAB PO DAILY 11/08/24 Current Medications Current Medications Medications (Trade) Dose Ordered Sig/Nevaeh Route PRN Reason Start Time Stop Time Status Last Admin Sodium Chloride (Saline Lock Ns) 10 ml Q8HR IV 04/10/25 14:00 04/11/25 05:58 Furosemide (Lasix Injection) 40 mg DAILY IV 04/11/25 10:00 04/11/25 08:15 Apixaban (Eliquis) 5 mg BID PO 04/10/25 22:00 04/11/25 08:14 Aspirin (Ecotrin Enteric Coated Tablet) 81 mg DAILY PO 04/11/25 10:00 04/11/25 08:15 Atorvastatin Calcium (Lipitor) 20 mg HS PO 04/10/25 22:00 04/10/25 21:31 Carvedilol (Coreg Tablet) 3.125 mg BID PO 04/10/25 22:00 04/11/25 08:15 Clindamycin Phosphate 50 ml @ 50 mls/hr Q8HR IV 04/10/25 14:00 04/11/25 05:57 Review of Systems Eyes: No Pain, No Vision change, No Conjunctivae inflammation, No Eyelid inflammation, No Other, No Redness ENT: No Ear pain, No Ear discharge, No Nose pain, No Nose discharge, No Nose congestion, No Mouth pain, No Mouth swelling, No Throat pain, No Throat swelling, No Other Cardiovascular: No Chest Pain, No Palpitations, No Orthopnea, No PND, No Edema, No Lt Headedness, No Other Respiratory: No Cough, No Dry, reports Shortness of breath, SOB with exertion, No Wheezing, No Hemoptysis, No Pleuritic Pain, No Sputum, No Other Gastrointestinal: No Nausea, No Vomiting, No Abdominal Pain, No Diarrhea, No Constipation, No Melena, No Hematochezia, No Other Genitourinary: No Dysuria, No Frequency, No Incontinence, No Hematuria, No Retention, No Other Musculoskeletal: No other, No neck pain, No shoulder pain, No arm pain, No back pain, No hand pain, No leg pain, No foot pain Skin: No Rash, No Lesions, No Jaundice, No Bruising, No Other Vital Signs Vital Signs Date Time Temp Pulse Resp B/P (MAP) Pulse Ox O2 Delivery O2 Flow Rate FiO2 04/11/25 12:46 97.8 76 18 100/69 (79) 97 97.8 04/10/25 20:00 Room Air* 0 21 Physical Exam Patient lying in bed, in no acute distress General: Obese, afebrile, palor, mucosae are moist Cardiovascular: Regular S1 and S2. No murmurs, gallops or rubs. No JVD elevation. 2+ pedal edema Respiratory: Decreased bilateral air entry, bilateral crackles basilar region Abdomen: Soft, nontender, distended, normoactive bowel sounds, no rebound tenderness, no organomegaly, no masses Genitourinary: Deferred MSK/skin: Mobilizes 4 limbs. Skin is dry and warm Neurological: No motor, no sensitive deficits, normal speech. Pupils are isocoric and reactive. Psych/Mental Status: A/Ox3 Labs/Diagnostic Data Labs Test 04/11/25 05:15 04/10/25 10:16 04/10/25 05:34 04/10/25 05:09 Range/Units White Blood Count 5.7 4.4-10.8 10^3/uL Red Blood Count 4.62 4.0-5.20 10^6/uL Hemoglobin 12.3 12.2-16.2 g/dL Hematocrit 38.1 36.0-46.0 % Mean Corpuscular Volume 82.5 80.0-100.0 fL Mean Corpuscular Hemoglobin 26.7 L 28.0-32.0 pg Mean Corpuscular Hemoglobin Concent 32.3 32.0-36.0 g/dL Red Cell Distribution Width 16.0 H 11.8-14.3 % Platelet Count 231 140-450 10^3/uL Mean Platelet Volume 10.1 6.9-10.8 fL Neutrophils (%) (Auto) 75.5 37.0-80.0 % Lymphocytes (%) (Auto) 15.1 10.0-50.0 % Monocytes (%) (Auto) 8.3 0.0-12.0 % Eosinophils (%) (Auto) 0.8 0.0-7.0 % Basophils (%) (Auto) 0.3 0.0-2.0 % Neutrophils # (Auto) 4.3 1.6-8.6 10 ^3/uL Lymphocytes # (Auto) 0.9 0.4-5.4 10 ^3/uL Monocytes # (Auto) 0.5 0-1.3 10 ^3/uL Eosinophils # (Auto) 0 0-0.8 10 ^3/uL Basophils # (Auto) 0 0-0.2 10 ^3/uL Nucleated Red Blood Cells 0.1 % Sodium Level 139 136-145 mmol/L Potassium Level 4.1 3.5-5.1 mmol/L Chloride Level 103 98-107 mmol/L Carbon Dioxide Level 27 20-31 mmol/L Anion Gap 9 5-15 Blood Urea Nitrogen 13 9-23 mg/dL Creatinine 0.92 0.550-1.02 mg/dL Glomerular Filtration Rate Calc 77 >90 mL/min BUN/Creatinine Ratio 14.1 10.0-20.0 Serum Glucose 90 74-106 mg/dL Calcium Level 8.4 L 8.7-10.4 mg/dL Magnesium Level 1.8 1.6-2.6 mg/dL Total Bilirubin 1.0 0.2-1.0 mg/dL Aspartate Amino Transferase (AST) 23 13-40 U/L Alanine Aminotransferase (ALT) 22 7-40 U/L Alkaline Phosphatase 103 46-116 U/L Total Protein 6.3 5.7-8.2 g/dL Albumin 3.5 3.2-4.8 g/dL Lactic Acid Level 1.4 0.4-2.0 mmol/L Urine Color Yellow Yellow Urine Clarity Turbid H Clear Urine pH 5.5 5.0-9.0 Urine Specific [place] 1.016 1.001-1.035 Urine Protein 1+ H Negative Urine Ketones Negative Negative Urine Blood Negative Negative /uL Urine Nitrite Negative Negative Urine Bilirubin Negative Negative Urine Urobilinogen Normal Negative mg/dL Urine Leukocyte Esterase Trace Negative /uL Urine RBC 1 0 - 4 /hpf Urine Microscopic WBC 3 0-5 /HPF Urine Squamous Epithelial Cells Mod <5 /hpf Urine Bacteria Few H None Seen /hpf Urine Hyaline Casts Few 0 - 2 /lpf Urine Mucus Few None Seen Urine Glucose Normal Normal mg/dL Urine Opiates Screen Neg NEGATIVE Urine Fentanyl Screen Neg NEGATIVE Urine Barbiturates Screen Neg NEGATIVE Urine Phencyclidine Screen Neg NEGATIVE Urine Amphetamines Screen Pos NEGATIVE Urine Benzodiazepines Screen Neg NEGATIVE Urine Cocaine Screen Neg NEGATIVE Urine Cannabinoids Screen Neg NEGATIVE D-Dimer, Quantitative 2.45 H 0.0-0.49 mg/L FEU B-Type Natriuretic Peptide 4868.96 0-100 pg/mL Microbiology Date/Time Source Procedure Growth Status 04/10/25 10:38 Blood Blood Culture - Preliminary NO GROWTH AFTER 24 HOURS OF INCUBATION. 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 Methamphetamine dependence Moderate MR Severe TR Dyslipidemia Obesity Telemetry shows PVCs , otherwise sinus rhythm BNP 4000 Plan/Recommendation Continue diuresis with Lasix 40 mg IV daily Recommended starting guideline directed medical therapy with Entresto, Coreg, Jardiance Strict I&Os, fluid restriction, cardiac diet Follow up with abdominal limited ultrasound for ascites Keep Mag greater than 2, K greater than 4 Monitor telemetry Counseled regarding healthy lifestyle, physical exercise and diet Thank you for consulting Cardiology Plan discussed with patient in which all questions have been answered Case discussed with Dr. Mendoza Plan discussed with: Patient Visit Coding Cardiology RES Date of Service: Apr 11, 2025 Billing Provider: COLLINS WARD Sr., MD Cardiology Common Codes: CONSULT ONLY KIMMY ROBIN RESIDENT Apr 11, 2025 13:34
--- NOTE | 2025-04-11 15:29 | DVH ---
Technique: Real-time ultrasound imaging of the abdomen was performed with grayscale imaging. Indication: ascites Comparison: None Findings: Small volume of ascites fluid. Right pleural effusion. Impression: As above
[2025-04-11] MEDS: EMPAGLIFLOZIN 10 MG TAB PO SCH (15:56)
[2025-04-11] MEDS: SACUBITRIL-VALSARTAN 24mg/26mg TAB PO SCH (21:14)
--- NOTE | 2025-04-11 23:55 | DVHINCON2 ---
Date of service: Apr 11, [address] Silva Reason for Consultation CHF exacerbation History of Present Illness This is a 49-year-old female with a PMH of HFrEF-10% 11/05/2024, end-stage cardiomyopathy, RV dysfunction, moderate MR, severe TR, hypertension, dyslipidemia, lower extremity DVT 11/2024 on Eliquis who presented to the ED with a complaint of bilateral lower extremity swelling and shortness of breaths for the past week. Patient is homeless, she thinks something bit her on her bilateral posterior thighs and buttocks and since then she has been experiencing worsening lower extremity swelling. Associated symptoms include shortness of breaths, shortness of breaths with exertion but denies fever or chills, nausea vomiting, constipation or diarrhea at this time. She does take Lasix 20 mg daily at home. Does not follow up with the forging die finisher. Last use methamphetamine was 5 days back. Last known echocardiogram: 11/05/2024 lvef 10% by visual estimate,severe dilated LV, end stage cardimyopathy, RV dysfunction, moderate mitral regurg, severe tricuspd regurg. TROP 50. BLE Venous Duplex showed no right or left femoropopliteal venous thrombosis.Cardiology was consulted for CHF. Family History: FH: kidney disease Allergies: Coded Allergies: NO KNOWN ALLERGIES (Unverified , 11/05/24) Home Meds Active Scripts Potassium Chloride (Potassium Chloride ER) 10 Meq Tab, 10 MEQ PO BID, #90 TAB 3 Refills Prov:AVILA LYNNE MD 04/10/25 Furosemide (Furosemide) 20 Mg Tab, 1 TAB PO BID, #90 TAB 3 Refills Prov:AVILA LYNNE MD 04/10/25 Furosemide (Furosemide) 20 Mg Tab, 20 MG PO DAILY for 90 Days, #90 TAB Prov:TYREL NAM MD 11/15/24 Empagliflozin (Jardiance) 10 Mg Tab, 10 MG PO DAILY for 90 Days, #90 TAB Prov:TYREL NAM MD 11/15/24 Aspirin (Aspirin Low Dose) 81 Mg Tab, 81 MG PO DAILY for 90 Days, #90 TAB Prov:TYREL NAM MD 11/15/24 Atorvastatin Calcium (ATORVASTATIN CALCIUM) 20 Mg Tab, 20 MG PO HS for 90 Days, #90 TAB Prov:TYREL NAM MD 11/15/24 Pantoprazole Sodium Sesquihydr (Pantoprazole Sodium) 40 Mg Tab, 40 MG PO DAILY@BREAKFAST, #30 TAB Prov:STEPHANIE MCCABE MD 11/07/24 Cefdinir (Cefdinir) 300 Mg Cap, 1 CAP PO BID, #20 CAP Prov:STEPHANIE MCCABE MD 11/07/24 Sulfamethoxazole W/Trimethopri (Bactrim Ds Tablet) 1 Tab Tb, 1 TAB PO BID, #14 TAB Prov:STEPHANIE MCCABE MD 11/07/24 Apixaban Base (ELIQUIS) 5 Mg Tab, 5 MG PO BID, #90 TAB Prov:STEPHANIE MCCABE MD 11/07/24 Sacubitril-Valsartan (Entresto 15-16 mg) 1 Cap Cap, 1 CAP PO QPM, #30 CAP Prov:STEPHANIE MCCABE MD 11/07/24 Carvedilol (Carvedilol) 3.125 Mg Tab, 1 TAB PO BID, #60 TAB 3 Refills Prov:STEPHANIE MCCABE MD 11/07/24 Reported Medications Metoprolol Succinate (Metoprolol Succinate Er) 25 Mg Tab, 1 TAB PO DAILY 11/08/24 Current Medications Current Medications Medications (Trade) Dose Ordered Sig/Nevaeh Route PRN Reason Start Time Stop Time Status Last Admin Furosemide (Lasix Injection) 40 mg DAILY IV 04/11/25 10:00 04/11/25 08:15 Apixaban (Eliquis) 5 mg BID PO 04/10/25 22:00 04/11/25 08:14 Aspirin (Ecotrin Enteric Coated Tablet) 81 mg DAILY PO 04/11/25 10:00 04/11/25 08:15 Atorvastatin Calcium (Lipitor) 20 mg HS PO 04/10/25 22:00 04/10/25 21:31 Carvedilol (Coreg Tablet) 3.125 mg BID PO 04/10/25 22:00 04/11/25 08:15 Sacubitril/ Valsartan (Entresto 24-26 Mg tab) 0.5 tab BID PO 04/11/25 22:00 Empaglifozin (Jardiance) 10 mg DAILY PO 04/11/25 14:45 Review of Systems Eyes: No Pain, No Vision change, No Conjunctivae inflammation, No Eyelid inflammation, No Other, No Redness ENT: No Ear pain, No Ear discharge, No Nose pain, No Nose discharge, No Nose congestion, No Mouth pain, No Mouth swelling, No Throat pain, No Throat swelling, No Other Cardiovascular: No Chest Pain, No Palpitations, No Orthopnea, No PND, No Edema, No Lt Headedness, No Other Respiratory: No Cough, No Dry, reports Shortness of breath, SOB with exertion, No Wheezing, No Hemoptysis, No Pleuritic Pain, No Sputum, No Other Gastrointestinal: No Nausea, No Vomiting, No Abdominal Pain, No Diarrhea, No Constipation, No Melena, No Hematochezia, No Other Genitourinary: No Dysuria, No Frequency, No Incontinence, No Hematuria, No Retention, No Other Musculoskeletal: No other, No neck pain, No shoulder pain, No arm pain, No back pain, No hand pain, No leg pain, No foot pain Skin: No Rash, No Lesions, No Jaundice, No Bruising, No Other Vital Signs Vital Signs Date Time Temp Pulse Resp B/P (MAP) Pulse Ox O2 Delivery O2 Flow Rate FiO2 04/11/25 12:46 97.8 76 18 100/69 (79) 97 97.8 04/11/25 08:00 Room Air* 0 21 Physical Exam GENERAL: Alert and oriented x 3. No acute distress. EYES: PERRL, EOMI. Anicteric. HENT: Moist mucous membranes. LUNGS: Clear to auscultation bilaterally. CARDIOVASCULAR: Regular rate and rhythm. ABDOMEN: Soft, nontender and nondistended. EXTREMITIES: + 2 pitting edema. NEUROLOGIC: No focal neurological deficits. SKIN: Warm, dry. Labs/Diagnostic Data Labs Test 04/11/25 14:25 04/11/25 05:15 04/10/25 10:16 04/10/25 05:34 Range/Units Troponin I High Sensitivity 50 *H </=34 ng/L White Blood Count 5.7 4.4-10.8 10^3/uL Red Blood Count 4.62 4.0-5.20 10^6/uL Hemoglobin 12.3 12.2-16.2 g/dL Hematocrit 38.1 36.0-46.0 % Mean Corpuscular Volume 82.5 80.0-100.0 fL Mean Corpuscular Hemoglobin 26.7 L 28.0-32.0 pg Mean Corpuscular Hemoglobin Concent 32.3 32.0-36.0 g/dL Red Cell Distribution Width 16.0 H 11.8-14.3 % Platelet Count 231 140-450 10^3/uL Mean Platelet Volume 10.1 6.9-10.8 fL Neutrophils (%) (Auto) 75.5 37.0-80.0 % Lymphocytes (%) (Auto) 15.1 10.0-50.0 % Monocytes (%) (Auto) 8.3 0.0-12.0 % Eosinophils (%) (Auto) 0.8 0.0-7.0 % Basophils (%) (Auto) 0.3 0.0-2.0 % Neutrophils # (Auto) 4.3 1.6-8.6 10 ^3/uL Lymphocytes # (Auto) 0.9 0.4-5.4 10 ^3/uL Monocytes # (Auto) 0.5 0-1.3 10 ^3/uL Eosinophils # (Auto) 0 0-0.8 10 ^3/uL Basophils # (Auto) 0 0-0.2 10 ^3/uL Nucleated Red Blood Cells 0.1 % Sodium Level 139 136-145 mmol/L Potassium Level 4.1 3.5-5.1 mmol/L Chloride Level 103 98-107 mmol/L Carbon Dioxide Level 27 20-31 mmol/L Anion Gap 9 5-15 Blood Urea Nitrogen 13 9-23 mg/dL Creatinine 0.92 0.550-1.02 mg/dL Glomerular Filtration Rate Calc 77 >90 mL/min BUN/Creatinine Ratio 14.1 10.0-20.0 Serum Glucose 90 74-106 mg/dL Calcium Level 8.4 L 8.7-10.4 mg/dL Magnesium Level 1.8 1.6-2.6 mg/dL Total Bilirubin 1.0 0.2-1.0 mg/dL Aspartate Amino Transferase (AST) 23 13-40 U/L Alanine Aminotransferase (ALT) 22 7-40 U/L Alkaline Phosphatase 103 46-116 U/L Total Protein 6.3 5.7-8.2 g/dL Albumin 3.5 3.2-4.8 g/dL Thyroid Stimulating Hormone (TSH) 1.53 0.55-4.78 uIU/mL Lactic Acid Level 1.4 0.4-2.0 mmol/L Urine Color Yellow Yellow Urine Clarity Turbid H Clear Urine pH 5.5 5.0-9.0 Urine Specific [place] 1.016 1.001-1.035 Urine Protein 1+ H Negative Urine Ketones Negative Negative Urine Blood Negative Negative /uL Urine Nitrite Negative Negative Urine Bilirubin Negative Negative Urine Urobilinogen Normal Negative mg/dL Urine Leukocyte Esterase Trace Negative /uL Urine RBC 1 0 - 4 /hpf Urine Microscopic WBC 3 0-5 /HPF Urine Squamous Epithelial Cells Mod <5 /hpf Urine Bacteria Few H None Seen /hpf Urine Hyaline Casts Few 0 - 2 /lpf Urine Mucus Few None Seen Urine Glucose Normal Normal mg/dL Urine Opiates Screen Neg NEGATIVE Urine Fentanyl Screen Neg NEGATIVE Urine Barbiturates Screen Neg NEGATIVE Urine Phencyclidine Screen Neg NEGATIVE Urine Amphetamines Screen Pos NEGATIVE Urine Benzodiazepines Screen Neg NEGATIVE Urine Cocaine Screen Neg NEGATIVE Urine Cannabinoids Screen Neg NEGATIVE Test 04/10/25 05:09 Range/Units D-Dimer, Quantitative 2.45 H 0.0-0.49 mg/L FEU B-Type Natriuretic Peptide 4868.96 0-100 pg/mL Microbiology Date/Time Source Procedure Growth Status 04/10/25 10:38 Blood Blood Culture - Preliminary NO GROWTH AFTER 24 HOURS OF INCUBATION. Resulted Assessment Acute heart failure with reduced ejection fraction exacerbation-NYHA class 3. End-stage cardiomyopathy. ? Drug-induced cardiomyopathy. Methamphetamine dependence. Moderate MR. Severe TR. Dyslipidemia. Obesity. Plan/Recommendation I agree with your ongoing assessment and care of plan. Patient has been seen by Ion Lu Resident on my behalf, we have discussed the plan with the patient. Continue diuresis with Lasix 40 mg IV daily. Recommended starting guideline directed medical therapy with Entresto, Coreg, Jardiance. Strict I&Os, fluid restriction, cardiac diet. Follow up with abdominal limited ultrasound for ascites. Keep Mag greater than 2, K greater than 4. Monitor telemetry. Counseled regarding healthy lifestyle, physical exercise and diet. Additional plan as per the hospital course. Visit Coding Cardiology Date of Service: Apr 11, 2025 Billing Provider: NICOLE RANGEL MD Cardiology Common Codes: [id number] INP/OBS CARE (High) Cardiology Consultation Codes: [id number] CONSULT <45MIN Plan discussed with: Patient NICOLE RANGEL MD Apr 11, 2025 15:55
[2025-04-12] VITALS (8 sets, daily range): BP systolic 97–117; BP diastolic 64–82; PULSE 71–83; RESP 17–20; TEMP 97.6–98.4; O2SAT 96–100
--- NOTE | 2025-04-12 04:49 | DVH ---
CHEST RADIOGRAPH Indication: congestion Technique: Single frontal view of the chest was obtained COMPARISON: CT CT ANGIO CHEST CONTRAST on DOS: 04/10/25, XY CHEST PORTABLE on DOS: 11/11/24, XY CHEST PORTABLE on DOS: 11/08/24, XY CHEST PORTABLE on DOS: 11/07/24, US ECHO 2D MODE CARDIAC DOP on DOS: 11/05/24 FINDINGS: Lines and Tubes: None Lungs: Moderate diffuse increased prominence of the pulmonary vasculature and patchy right basilar pulmonary airspace disease. Pleura: No effusion. No pneumothorax. Cardiomediastinal contours: Cardiomegaly. Bones: Unremarkable IMPRESSION: 1. Cardiomegaly with pulmonary vascular congestion and right basilar pulmonary airspace disease.
[2025-04-12 05:28] LABS: Alanine Aminotransferase 17 U/L (7-40); Albumin 3.4 g/dL (3.2-4.8); Alkaline Phosphatase 95 U/L (46-116); Anion Gap 9 (5-15); BUN/Creatinine Ratio 16.1 (10.0-20.0); Blood Urea Nitrogen 14 mg/dL (9-23); Carbon Dioxide 27 mmol/L (20-31); Chloride 103 mmol/L (98-107); Glucose 93 mg/dL (74-106); Magnesium 1.8 mg/dL (1.6-2.6); Potassium 4.4 mmol/L (3.5-5.1); Sodium 139 mmol/L (136-145); Total Protein 6.2 g/dL (5.7-8.2)
[2025-04-12 05:29] LABS: Bilirubin, Total 0.8 mg/dL (0.2-1.0); Calcium 8.5 mg/dL (8.7-10.4)
[2025-04-12 05:30] LABS: Hematocrit 36.8 % (36.0-46.0); Hemoglobin 12.1 g/dL (12.2-16.2); Mean Corpuscular Hemoglobin 27.0 pg (28.0-32.0); Mean Corpuscular Volume 82.2 fL (80.0-100.0); Nucleated Red Blood Cells % 0.2 %
--- NOTE | 2025-04-12 10:31 | DVHPN2 ---
Progress Note Date Seen: Apr 12, 2025 Resident Creating Document: KIMMY ROBIN RESIDENT Medical Necessity Reason Pt with a Central, PICC or Fol: No Subjective Review of Systems 49-year-old female presented to the ER with a chief complaint of bilateral lower extremity swelling and shortness of breaths for the past week. Patient is homeless, she thinks something bit her on her bilateral posterior thighs and buttocks and since then she has been experiencing worsening lower extremity swelling. Associated symptoms include shortness of breaths, shortness of breaths with exertion but denies fever or chills, nausea vomiting, constipation or diarrhea at this time. She does take Lasix 20 mg daily at home. Does not follow up with the manager of change. Last use methamphetamine was 5 days back. Cardiology consulted for CHF. Last known echocardiogram: 11/05/2024 lvef 10% by visual estimate,severe dilated LV, end stage cardimyopathy, RV dysfunction, moderate mitral regurg, severe tricuspd regurg Past medical history: HFrEF-10% 11/05/2024, end-stage cardiomyopathy, RV dysfunction, moderate MR, severe TR, hypertension, dyslipidemia, lower extremity DVT 11/2024 on Eliquis Home medications: Aspirin 81, Lasix 20 mg, atorvastatin 20 mg PCP: Dr. Kaur 04/11-Patient seen and examined at bedside. Bilateral decreased breath sounds, abdomen is distended but nontender, lower extremity pitting edema 2+. 04/12-urine output 900 cc, patient reports feeling the same. Lasix increased to 40 b.i.d.. Objective vital signs Vital Sign Date Time Temp Pulse Resp B/P (MAP) Pulse Ox O2 Delivery O2 Flow Rate FiO2 04/12/25 09:00 97.6 82 18 108/80 (89) 96 97.6 04/11/25 20:00 Room Air* 0 21 Total Intake and Output 04/11/25 04/11/25 04/12/25 15:00 23:00 07:00 Intake Total 120 ml 610 ml 850 ml Balance 120 ml 610 ml 850 ml medications Current Medications Medications Dose Ordered Sig/Nevaeh Route Start Time Stop Time Status Last Admin Dose Admin Sodium Chloride 10 ml Q8HR IV 04/10/25 14:00 04/12/25 05:54 10 ML Acetaminophen/ Hydrocodone Bitart 1 tab Q4HP PRN PO 04/10/25 12:15 04/11/25 09:42 1 TAB Ondansetron HCl 4 mg Q4HP PRN IV 04/10/25 12:15 Docusate Sodium 100 mg BIDPRN PRN PO 04/10/25 12:15 Acetaminophen 650 mg Q6HP PRN PO 04/10/25 12:15 Nitroglycerin 0.4 mg Q5MINP PRN SL 04/10/25 12:15 Morphine Sulfate 2 mg Q30M PRN IV 04/10/25 12:15 Apixaban 5 mg BID PO 04/10/25 22:00 04/11/25 21:13 5 MG Aspirin 81 mg DAILY PO 04/11/25 10:00 04/11/25 08:15 81 MG Atorvastatin Calcium 20 mg HS PO 04/10/25 22:00 04/11/25 21:14 20 MG Carvedilol 3.125 mg BID PO 04/10/25 22:00 04/11/25 21:14 3.125 MG Clindamycin Phosphate 50 ml @ 50 mls/hr Q8HR IV 04/10/25 14:00 04/12/25 05:54 50 MLS/HR Sacubitril/ Valsartan 0.5 tab BID PO 04/11/25 22:00 04/11/25 21:14 0.5 TAB Empaglifozin 10 mg DAILY PO 04/11/25 14:45 04/11/25 15:56 10 MG Spironolactone 25 mg DAILY PO 04/12/25 10:00 Furosemide 40 mg BIDD IV 04/12/25 10:15 Examination Patient lying in bed, in no acute distress General: Obese, afebrile, palor, mucosae are moist Cardiovascular: Regular S1 and S2. No murmurs, gallops or rubs. No JVD elevation. 2+ pedal edema Respiratory: Decreased bilateral air entry, bilateral crackles basilar region Abdomen: Soft, nontender, distended, normoactive bowel sounds, no rebound tenderness, no organomegaly, no masses Genitourinary: Deferred MSK/skin: Mobilizes 4 limbs. Skin is dry and warm Neurological: No motor, no sensitive deficits, normal speech. Pupils are isocoric and reactive. Psych/Mental Status: A/Ox3 laboratory and microbiology Laboratory Tests 04/12/25 04:58 Test 04/12/25 04:58 Range/Units Serum Glucose 93 74-106 mg/dL Microbiology Date/Time Source Procedure Growth Status 04/10/25 21:44 Buttock Gram Stain - Final Resulted 04/10/25 21:44 Buttock Wound Culture - Preliminary Resulted 04/10/25 10:38 Blood Blood Culture - Preliminary NO GROWTH AFTER 24 HOURS OF INCUBATION. 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 Started spironolactone 25 mg daily. Recommended continuing guideline directed medical therapy with Entresto, Coreg 3.125 b.i.d., Jardiance 10 mg daily Strict I&Os, fluid restriction, cardiac diet Follow up with abdominal limited ultrasound for ascites Keep Mag greater than 2, K greater than 4 Monitor telemetry Counseled regarding healthy lifestyle, physical exercise and diet Thank you for consulting Cardiology Plan discussed with patient in which all questions have been answered Case discussed with Dr. Mendoza Plan discussed with: Patient My Orders My Orders Orders - KIMMY ROBIN Procedure Category Date Status Time Strict I & O MELIZA 04/11/25 In Process 13:30 Abdomen Limited US 04/11/25 Resulted 14:37 Sacubitril-Valsartan PHA 04/11/25 In Process (Entresto 24-26 Mg 22:00 Empagliflozin PHA 04/11/25 In Process (Jardiance) 14:45 Chest Xray 1 View XY 04/12/25 Resulted 07:00 Spironolactone PHA 04/12/25 In Process (Aldactone) 10:00 Furosemide Injection PHA 04/12/25 In Process (Lasix Injection) 10:15 Visit Coding Cardiology RES Date of Service: Apr 12, 2025 Billing Provider: COLLINS WARD Sr., MD Cardiology Common Codes: [id number](KIMMY Cortes RESIDENT Apr 12, 2025 10:31
--- NOTE | 2025-04-12 10:35 | DVHPN2 ---
Reviewed: Care Plan, H&P, Labs, Medications, Previous Orders, Radiology Changes from previous H/P or p: No Changes Eyes: No Pain, No Vision change, No Conjunctivae inflammation, No Eyelid inflammation, No Other, No Redness ENT: No Ear pain, No Ear discharge, No Nose pain, No Nose discharge, No Nose congestion, No Mouth pain, No Mouth swelling, No Throat pain, No Throat swelling, No Other Cardiovascular: No Chest Pain, No Palpitations, No Orthopnea, No Paroxysmal Noc. Dyspnea; Edema (bilateral lower extremities); No Lt Headedness, No Other Respiratory: No Cough, No Dry; Shortness of breath; No SOB with excertion, No Wheezing, No Hemoptysis, No Pleuritic Pain, No Sputum, No Other Gastrointestinal: No Nausea, No Vomiting, No Abdominal Pain, No Diarrhea, No Constipation, No Melena, No Hematochezia, No Other Genitourinary: No Dysuria, No Frequency, No Incontinence, No Hematuria, No Retention, No Other Musculoskeletal: No other, No neck pain, No shoulder pain, No arm pain, No back pain, No hand pain, No leg pain, No foot pain Skin: No Rash, No Lesions, No Jaundice, No Bruising, No Other Objective Vitals Vital Signs Date Time Temp Pulse Resp B/P (MAP) Pulse Ox O2 Delivery O2 Flow Rate FiO2 04/12/25 09:00 97.6 82 18 108/80 (89) 96 97.6 04/11/25 20:00 Room Air* 0 21 Intake/Output Intake and Output 04/12/25 07:00 Intake Total 1580 ml Balance 1580 ml Intake Oral 1480 ml IV Total 100 ml # Voids 7 # Bowel Movements 2 Medications Current Medications Medications Dose Ordered Sig/Nevaeh Route Start Time Stop Time Status Last Admin Dose Admin Sodium Chloride 10 ml Q8HR IV 04/10/25 14:00 04/12/25 05:54 10 ML Acetaminophen/ Hydrocodone Bitart 1 tab Q4HP PRN PO 04/10/25 12:15 04/11/25 09:42 1 TAB Ondansetron HCl 4 mg Q4HP PRN IV 04/10/25 12:15 Docusate Sodium 100 mg BIDPRN PRN PO 04/10/25 12:15 Acetaminophen 650 mg Q6HP PRN PO 04/10/25 12:15 Nitroglycerin 0.4 mg Q5MINP PRN SL 04/10/25 12:15 Morphine Sulfate 2 mg Q30M PRN IV 04/10/25 12:15 Apixaban 5 mg BID PO 04/10/25 22:00 04/11/25 21:13 5 MG Aspirin 81 mg DAILY PO 04/11/25 10:00 04/11/25 08:15 81 MG Atorvastatin Calcium 20 mg HS PO 04/10/25 22:00 04/11/25 21:14 20 MG Carvedilol 3.125 mg BID PO 04/10/25 22:00 04/11/25 21:14 3.125 MG Clindamycin Phosphate 50 ml @ 50 mls/hr Q8HR IV 04/10/25 14:00 04/12/25 05:54 50 MLS/HR Sacubitril/ Valsartan 0.5 tab BID PO 04/11/25 22:00 04/11/25 21:14 0.5 TAB Empaglifozin 10 mg DAILY PO 04/11/25 14:45 04/11/25 15:56 10 MG Spironolactone 25 mg DAILY PO 04/12/25 10:00 Furosemide 40 mg BIDD IV 04/12/25 10:15 Laboratory Results Laboratory Tests 04/12/25 04:58 Chemistry Test 04/12/25 04:58 Albumin 3.4 g/dL (3.2-4.8) Calcium Level 8.5 mg/dL (8.7-10.4) L Magnesium Level 1.8 mg/dL (1.6-2.6) Total Protein 6.2 g/dL (5.7-8.2) LFT Test 04/12/25 04:58 Alanine Aminotransferase (ALT) 17 U/L (7-40) Alkaline Phosphatase 95 U/L (46-116) Aspartate Amino Transferase (AST) 20 U/L (13-40) Total Bilirubin 0.8 mg/dL (0.2-1.0) Urinalysis Test 04/10/25 05:34 Urine Color Yellow (Yellow) Urine Clarity Turbid (Clear) H Urine pH 5.5 (5.0-9.0) Urine Specific [place] 1.016 (1.001-1.035) Urine Protein 1+ (Negative) H Urine Ketones Negative (Negative) Urine Blood Negative /uL (Negative) Urine Nitrite Negative (Negative) Urine Bilirubin Negative (Negative) Urine Urobilinogen Normal mg/dL (Negative) Urine Leukocyte Esterase Trace /uL (Negative) Urine RBC 1 /hpf (0 - 4) Urine Microscopic WBC 3 /HPF (0-5) Urine Squamous Epithelial Cells Mod /hpf (<5) Urine Bacteria Few /hpf (None Seen) H Urine Hyaline Casts Few /lpf (0 - 2) Urine Mucus Few (None Seen) Urine Glucose Normal mg/dL (Normal) Microbiology Microbiology Date/Time Source Procedure Growth Status 04/10/25 21:44 Buttock Gram Stain - Final Resulted 04/10/25 21:44 Buttock Wound Culture - Preliminary Resulted 04/10/25 10:38 Blood Blood Culture - Preliminary NO GROWTH AFTER 24 HOURS OF INCUBATION. Resulted Labs and/or images reviewed: Labs reviewed by me, Image(s) reviewed by me Assessment/Plan Assessment/Plan Acute hypoxic respiratory failure: Oxygen by nasal cannula Acute CHF exacerbation BNP 4868 with reduced ejection fraction: Lasix Jim Entresto consult for Dr. 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 Severe TR Moderate MR Elevated D-dimer 2.45 DVT ruled out PE ruled out Chronic current meth abuse: Counseling Blood cultures negative Hypercholesterolemia Chronic current history of smoking: Counseling History of polysubstance abuse Time Spent 50 minutes Advanced care planning time 20 mts Possible Homelessness: Social service consult Physical therapy ordered Plan discussed with: Patient My Orders Orders - TOYIN CURRIE MD Procedure Category Date Status Time * Cardiology Consult CONS 04/11/25 Transmitted 12:31 Date of Service: Apr 12, 2025 Billing Provider: TOYIN CURRIE MD Common Visit Codes: [id number] INP/OBS CARE(HIGH) TOYIN CURRIE MD Apr 12, 2025 10:35
[2025-04-12] MEDS: SPIRONOLACTONE 25 MG TAB PO SCH (10:36)
[2025-04-12] MEDS: FUROSEMIDE 40 MG/4 ML VIAL IV SCH (10:38)
--- NOTE | 2025-04-12 23:51 | DVHPN2 ---
Progress Note - Dictate Date Seen: Apr 12, 2025 Medical Necessity Reason Pt with a Central, PICC or Fol: No Subjective Patient was seen and evaluated in follow-up. Urine output 900 cc. Patient reports feeling the same. Lasix was increased to 40 b.i.d. Chest x-ray shows cardiomegaly with pulmonary vascular congestion and right basilar pulmonary airspace disease. Telemetry reviewed. vital signs Vital Sign Date Time Temp Pulse Resp B/P (MAP) Pulse Ox O2 Delivery O2 Flow Rate FiO2 04/12/25 10:38 108/82 04/12/25 10:37 74 04/12/25 09:00 97.6 18 96 97.6 04/12/25 08:30 Room Air* 0 21 Total Intake and Output 04/11/25 04/11/25 04/12/25 15:00 23:00 07:00 Intake Total 120 ml 610 ml 850 ml Balance 120 ml 610 ml 850 ml medications Current Medications Medications Dose Ordered Sig/Nevaeh Route Start Time Stop Time Status Last Admin Dose Admin Sodium Chloride 10 ml Q8HR IV 04/10/25 14:00 04/12/25 05:54 10 ML Acetaminophen/ Hydrocodone Bitart 1 tab Q4HP PRN PO 04/10/25 12:15 04/11/25 09:42 1 TAB Ondansetron HCl 4 mg Q4HP PRN IV 04/10/25 12:15 Docusate Sodium 100 mg BIDPRN PRN PO 04/10/25 12:15 Acetaminophen 650 mg Q6HP PRN PO 04/10/25 12:15 Nitroglycerin 0.4 mg Q5MINP PRN SL 04/10/25 12:15 Morphine Sulfate 2 mg Q30M PRN IV 04/10/25 12:15 Apixaban 5 mg BID PO 04/10/25 22:00 04/12/25 10:37 5 MG Aspirin 81 mg DAILY PO 04/11/25 10:00 04/12/25 10:36 81 MG Atorvastatin Calcium 20 mg HS PO 04/10/25 22:00 04/11/25 21:14 20 MG Carvedilol 3.125 mg BID PO 04/10/25 22:00 04/12/25 10:37 3.125 MG Clindamycin Phosphate 50 ml @ 50 mls/hr Q8HR IV 04/10/25 14:00 04/12/25 05:54 50 MLS/HR Sacubitril/ Valsartan 0.5 tab BID PO 04/11/25 22:00 04/12/25 10:38 0.5 TAB Empaglifozin 10 mg DAILY PO 04/11/25 14:45 04/12/25 10:36 10 MG Spironolactone 25 mg DAILY PO 04/12/25 10:00 04/12/25 10:36 25 MG Furosemide 40 mg BIDD IV 04/12/25 10:15 04/12/25 10:38 40 MG objective GENERAL: Alert and oriented x 3. No acute distress. EYES: PERRL, EOMI. Anicteric. HENT: Moist mucous membranes. LUNGS: Clear to auscultation bilaterally. CARDIOVASCULAR: Regular rate and rhythm. ABDOMEN: Soft, nontender and nondistended. EXTREMITIES: + 2 pitting edema. NEUROLOGIC: No focal neurological deficits. SKIN: Warm, dry. laboratory and microbiology Laboratory Tests 04/12/25 04:58 Test 04/12/25 04:58 Range/Units Serum Glucose 93 74-106 mg/dL Problem List Acute heart failure with reduced ejection fraction exacerbation-NYHA class 3. End-stage cardiomyopathy. ? Drug-induced cardiomyopathy. Methamphetamine dependence. Moderate MR. Severe TR. Dyslipidemia. Obesity. Assessment/Plan Continued all current supportive medical care. Patient has been seen by Ion Lu Resident on my behalf, we have discussed the plan with the patient. Increased diuresis with Lasix 40 mg IV b.i.d. Started spironolactone 25 mg daily. Recommended continuing guideline directed medical therapy with Entresto, Coreg 3.125 b.i.d., Jardiance 10 mg daily. Strict I&Os, fluid restriction, cardiac diet. Follow up with abdominal limited ultrasound for ascites. Keep Mag greater than 2, K greater than 4. Monitor telemetry. Counseled regarding healthy lifestyle, physical exercise and diet. Additional plan as per the hospital course. Dietary Evaluation Review Comments: Nutrition Recommendation: 1) [facility] 60[facility] + cardiac diet 2) Refer [employer] Manager for diabetes education 3) Monitor PO intake, lab values, weight trend, and I/O Expected Outcomes/Goals: Intake to meet >75% estimated needs Lab values to improve FU 3-5 days Plan discussed with: Patient NICOLE RANGEL MD Apr 12, 2025 12:40
[2025-04-13 05:00] VITALS: BP 108/77; PULSE 71; RESP 18; TEMP 98; O2SAT 95
[2025-04-13 05:34] LABS: Anion Gap 4 (5-15); Chloride 104 mmol/L (98-107); Potassium 4.3 mmol/L (3.5-5.1); Sodium 140 mmol/L (136-145)
[2025-04-13 05:37] LABS: Calcium 8.6 mg/dL (8.7-10.4); Carbon Dioxide 32 mmol/L (20-31)
[2025-04-13 05:39] LABS: BUN/Creatinine Ratio 14.1 (10.0-20.0); Blood Urea Nitrogen 13 mg/dL (9-23); Glucose 93 mg/dL (74-106)
[2025-04-13 08:00] VITALS: PULSE 78; PULSE 81; RESP 18; O2SAT 96
--- NOTE | 2025-04-13 08:49 | DVHPN2 ---
Progress Note Date Seen: Apr 13, 2025 Resident Creating Document: KIMMY ROBIN RESIDENT Medical Necessity Reason Pt with a Central, PICC or Fol: No Subjective Review of Systems 49-year-old female presented to the ER with a chief complaint of bilateral lower extremity swelling and shortness of breaths for the past week. Patient is homeless, she thinks something bit her on her bilateral posterior thighs and buttocks and since then she has been experiencing worsening lower extremity swelling. Associated symptoms include shortness of breaths, shortness of breaths with exertion but denies fever or chills, nausea vomiting, constipation or diarrhea at this time. She does take Lasix 20 mg daily at home. Does not follow up with the powdered metal supervisor. Last use methamphetamine was 5 days back. Cardiology consulted for CHF. Last known echocardiogram: 11/05/2024 lvef 10% by visual estimate,severe dilated LV, end stage cardimyopathy, RV dysfunction, moderate mitral regurg, severe tricuspd regurg Past medical history: HFrEF-10% 11/05/2024, end-stage cardiomyopathy, RV dysfunction, moderate MR, severe TR, hypertension, dyslipidemia, lower extremity DVT 11/2024 on Eliquis Home medications: Aspirin 81, Lasix 20 mg, atorvastatin 20 mg PCP: Dr. Kaur 04/11-Patient seen and examined at bedside. Bilateral decreased breath sounds, abdomen is distended but nontender, lower extremity pitting edema 2+. 04/12-urine output 900 cc, patient reports feeling the same. Lasix increased to 40 b.i.d.. 04/13 no acute complaint, swelling resolving u/o 7500 Objective vital signs Vital Sign Date Time Temp Pulse Resp B/P (MAP) Pulse Ox O2 Delivery O2 Flow Rate FiO2 04/13/25 05:38 108/77 04/13/25 05:00 98.0 71 18 95 98.0 04/12/25 20:00 Room Air* 0 21 Total Intake and Output 04/12/25 04/12/25 04/13/25 15:00 23:00 07:00 Intake Total 620 ml 300 ml Output Total 3500 ml 4000 ml Balance -2880 ml -3700 ml medications Current Medications Medications Dose Ordered Sig/Nevaeh Route Start Time Stop Time Status Last Admin Dose Admin Sodium Chloride 10 ml Q8HR IV 04/10/25 14:00 04/13/25 05:36 10 ML Acetaminophen/ Hydrocodone Bitart 1 tab Q4HP PRN PO 04/10/25 12:15 04/11/25 09:42 1 TAB Ondansetron HCl 4 mg Q4HP PRN IV 04/10/25 12:15 Docusate Sodium 100 mg BIDPRN PRN PO 04/10/25 12:15 Acetaminophen 650 mg Q6HP PRN PO 04/10/25 12:15 Nitroglycerin 0.4 mg Q5MINP PRN SL 04/10/25 12:15 Morphine Sulfate 2 mg Q30M PRN IV 04/10/25 12:15 Apixaban 5 mg BID PO 04/10/25 22:00 04/12/25 21:19 5 MG Aspirin 81 mg DAILY PO 04/11/25 10:00 04/12/25 10:36 81 MG Atorvastatin Calcium 20 mg HS PO 04/10/25 22:00 04/12/25 21:19 20 MG Carvedilol 3.125 mg BID PO 04/10/25 22:00 04/12/25 10:37 3.125 MG Clindamycin Phosphate 50 ml @ 50 mls/hr Q8HR IV 04/10/25 14:00 04/13/25 05:38 50 MLS/HR Sacubitril/ Valsartan 0.5 tab BID PO 04/11/25 22:00 04/12/25 21:19 0.5 TAB Empaglifozin 10 mg DAILY PO 04/11/25 14:45 04/12/25 10:36 10 MG Spironolactone 25 mg DAILY PO 04/12/25 10:00 04/12/25 10:36 25 MG Furosemide 40 mg BIDD IV 04/12/25 10:15 04/13/25 05:38 40 MG Examination Patient lying in bed, in no acute distress General: Obese, afebrile, palor, mucosae are moist Cardiovascular: Regular S1 and S2. No murmurs, gallops or rubs. No JVD elevation. Resolving 2+ pedal edema Respiratory: Decreased bilateral air entry, bilateral crackles basilar region Abdomen: Soft, nontender, distended, normoactive bowel sounds, no rebound tenderness, no organomegaly, no masses Genitourinary: Deferred MSK/skin: Mobilizes 4 limbs. Skin is dry and warm Neurological: No motor, no sensitive deficits, normal speech. Pupils are isocoric and reactive. Psych/Mental Status: A/Ox3 laboratory and microbiology Laboratory Tests 04/13/25 05:04 04/12/25 04:58 Test 04/13/25 05:04 Range/Units Serum Glucose 93 74-106 mg/dL Microbiology Date/Time Source Procedure Growth Status 04/10/25 21:44 Buttock Gram Stain - Final Resulted 04/10/25 21:44 Buttock Wound Culture - Preliminary Resulted 04/10/25 10:38 Blood Blood Culture - Preliminary NO GROWTH AFTER 48 HOURS OF INCUBATION. Resulted Labs and/or images reviewed: Labs reviewed by me, Image(s) reviewed by me Problem List/Assessment/Plan Problem List/Assessment/Plan Acute heart failure with reduced ejection fraction exacerbation-NYHA class 3 End-stage cardiomyopathy ? Drug-induced cardiomyopathy Methamphetamine dependence Moderate MR Severe TR Dyslipidemia Obesity Telemetry shows PVCs , otherwise sinus rhythm BNP 4000 Plan/Recommendation Increased diuresis with Lasix 40 mg IV b.i.d. We will sign off. Please reconsult us if deemed necessary. Patient would benefit from medication refills on discharge. Started spironolactone 25 mg daily. Recommended continuing guideline directed medical therapy with Entresto, Coreg 3.125 b.i.d., Jardiance 10 mg daily Strict I&Os, fluid restriction, cardiac diet Follow up with abdominal limited ultrasound for ascites Keep Mag greater than 2, K greater than 4 Monitor telemetry Counseled regarding healthy lifestyle, physical exercise and diet Thank you for consulting Cardiology Plan discussed with patient in which all questions have been answered Case discussed with Dr. Mendoza Plan discussed with: Patient My Orders My Orders Orders - KIMMY ROBIN Procedure Category Date Status Time Spironolactone PHA 04/12/25 In Process (Aldactone) 10:00 Furosemide Injection PHA 04/12/25 In Process (Lasix Injection) 10:15 Dietary Evaluation Review Comments: Nutrition Recommendation: 1) CCHO 60gm + cardiac diet 2) Refer Corn Sheller for diabetes education 3) Monitor PO intake, lab values, weight trend, and I/O Expected Outcomes/Goals: Intake to meet >75% estimated needs Lab values to improve FU 3-5 days Visit Coding Cardiology RES Date of Service: Apr 13, 2025 Billing Provider: KIMMY ROBIN SAMEER RESIDENT Apr 13, 2025 08:49
[2025-04-13] MEDS ORDERED: SPIR25TA PO (10:36)
--- NOTE | 2025-04-13 10:42 | DVHDS2 ---
Discharge Summary Date of Admission Apr 10, 2025 at 12:06 Date of Discharge: Apr 13, 2025 Admitting Diagnosis Shortness of breath Wounds: None Labs/Diagnostic Data: Laboratory Results Test 04/13/25 05:04 04/12/25 04:58 04/11/25 14:25 04/11/25 05:15 Sodium Level 140 mmol/L (136-145) Potassium Level 4.3 mmol/L (3.5-5.1) Chloride Level 104 mmol/L (98-107) Carbon Dioxide Level 32 mmol/L (20-31) Anion Gap 4 (5-15) Blood Urea Nitrogen 13 mg/dL (9-23) Creatinine 0.92 mg/dL (0.550-1.02) Glomerular Filtration Rate Calc 77 mL/min (>90) BUN/Creatinine Ratio 14.1 (10.0-20.0) Serum Glucose 93 mg/dL (74-106) Calcium Level 8.6 mg/dL (8.7-10.4) White Blood Count 4.7 10^3/uL (4.4-10.8) Red Blood Count 4.48 10^6/uL (4.0-5.20) Hemoglobin 12.1 g/dL (12.2-16.2) Hematocrit 36.8 % (36.0-46.0) Mean Corpuscular Volume 82.2 fL (80.0-100.0) Mean Corpuscular Hemoglobin 27.0 pg (28.0-32.0) Mean Corpuscular Hemoglobin Concent 32.8 g/dL (32.0-36.0) Red Cell Distribution Width 16.2 % (11.8-14.3) Platelet Count 220 10^3/uL (140-450) Mean Platelet Volume 9.9 fL (6.9-10.8) Neutrophils (%) (Auto) 61.3 % (37.0-80.0) Lymphocytes (%) (Auto) 24.5 % (10.0-50.0) Monocytes (%) (Auto) 11.7 % (0.0-12.0) Eosinophils (%) (Auto) 1.8 % (0.0-7.0) Basophils (%) (Auto) 0.7 % (0.0-2.0) Neutrophils # (Auto) 2.9 10 ^3/uL (1.6-8.6) Lymphocytes # (Auto) 1.2 10 ^3/uL (0.4-5.4) Monocytes # (Auto) 0.6 10 ^3/uL (0-1.3) Eosinophils # (Auto) 0.1 10 ^3/uL (0-0.8) Basophils # (Auto) 0 10 ^3/uL (0-0.2) Nucleated Red Blood Cells 0.2 % Magnesium Level 1.8 mg/dL (1.6-2.6) Total Bilirubin 0.8 mg/dL (0.2-1.0) Aspartate Amino Transferase (AST) 20 U/L (13-40) Alanine Aminotransferase (ALT) 17 U/L (7-40) Alkaline Phosphatase 95 U/L (46-116) Total Protein 6.2 g/dL (5.7-8.2) Albumin 3.4 g/dL (3.2-4.8) Troponin I High Sensitivity 50 ng/L (</=34) Hemoglobin A1c 6.1 % A1C (<5.7) Thyroid Stimulating Hormone (TSH) 1.53 uIU/mL (0.55-4.78) Test 04/10/25 10:16 04/10/25 05:34 04/10/25 05:09 Lactic Acid Level 1.4 mmol/L (0.4-2.0) Urine Color Yellow (Yellow) Urine Clarity Turbid (Clear) Urine pH 5.5 (5.0-9.0) Urine Specific [place] 1.016 (1.001-1.035) Urine Protein 1+ (Negative) Urine Ketones Negative (Negative) Urine Blood Negative /uL (Negative) Urine Nitrite Negative (Negative) Urine Bilirubin Negative (Negative) Urine Urobilinogen Normal mg/dL (Negative) Urine Leukocyte Esterase Trace /uL (Negative) Urine RBC 1 /hpf (0 - 4) Urine Microscopic WBC 3 /HPF (0-5) Urine Squamous Epithelial Cells Mod /hpf (<5) Urine Bacteria Few /hpf (None Seen) Urine Hyaline Casts Few /lpf (0 - 2) Urine Mucus Few (None Seen) Urine Glucose Normal mg/dL (Normal) Urine Opiates Screen Neg (NEGATIVE) Urine Fentanyl Screen Neg (NEGATIVE) Urine Barbiturates Screen Neg (NEGATIVE) Urine Phencyclidine Screen Neg (NEGATIVE) Urine Amphetamines Screen Pos (NEGATIVE) Urine Benzodiazepines Screen Neg (NEGATIVE) Urine Cocaine Screen Neg (NEGATIVE) Urine Cannabinoids Screen Neg (NEGATIVE) D-Dimer, Quantitative 2.45 mg/L FEU (0.0-0.49) B-Type Natriuretic Peptide 4868.96 pg/mL (0-100) Other Laboratory Tests 04/13/25 05:04 04/12/25 04:58 Brief Hx & Hospital Course: 49-year-old female with a history of drug-induced cardiomyopathy chronic current meth abuse came in for shortness of breaths found to have acute CHF exacerbation BNP 4 868 reduced ejection fraction treated with the Lasix Coreg Entresto cardiology consult by Dr. 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 DVT ruled out PE ruled out blood cultures negative patient was counseled about quitting smoking and using drugs. Discharged home. Reviewed all her home medications. New medication spironolactone transmitted to pharmacy general condition poor RUDDY Ratliff at bedside at the time of discussion with the patient about discharge plan. Consults/Reason for consult Cardiology Dr. Dasha Mendoza Operations or Procedures Echocardiogram Condition at Discharge: Poor Final Diagnosis/Problems List Acute hypoxic respiratory failure: Oxygen by nasal cannula Acute CHF exacerbation BNP 4868 with reduced ejection fraction: Lasix Coreg Entresto consult for Dr. 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 Severe TR Moderate MR Elevated D-dimer 2.45 DVT ruled out PE ruled out Chronic current meth abuse: Counseling Blood cultures negative Hypercholesterolemia Chronic current history of smoking: Counseling History of polysubstance abuse Discharge Disposition: Home Discharge Instruct/Medications Diet: Cardiac 2g Na,low cholest Activity: Light activity Follow Up/Referral: Stop using methamphetamine Continue all your previous home medications Follow up with your primary Dr in one wk Medications: Spironolactone Transmitted to [facility] Reviewed all other home medications Scheduled Apixaban Base (Eliquis), 5 MG PO BID Aspirin (Aspirin Low Dose), 81 MG PO DAILY Atorvastatin Calcium (Atorvastatin Calcium), 20 MG PO HS Carvedilol (Carvedilol), 1 TAB PO BID Cefdinir (Cefdinir), 1 CAP PO BID Empagliflozin (Jardiance), 10 MG PO DAILY Furosemide (Furosemide), 20 MG PO DAILY Furosemide (Furosemide), 1 TAB PO BID Metoprolol Succinate (Metoprolol Succinate Er), 1 TAB PO DAILY, (Reported) Pantoprazole Sodium Sesquihydr (Pantoprazole Sodium), 40 MG PO DAILY@BREAKFAST Potassium Chloride (Potassium Chloride ER), 10 MEQ PO BID Sacubitril-Valsartan (Entresto 15-16 mg), 1 CAP PO QPM Spironolactone (Aldactone), 1 TAB PO DAILY Sulfamethoxazole W/Trimethopri (Bactrim Ds Tablet), 1 TAB PO BID 39 (Time taken for discharge summary 39 mts) Discharge Statement: "Patient was advised to return to the ER or call 911 if any headaches, dizziness, shortness of breath, chest pain, abdominal pain, bleeding, fevers, or worsening of medical condition. Patient was counseled about treatment plan, medications, possible side effects, patientverbalized understanding. All questions were answered to the best of my ability. This discharge took greater then 30 minutes in planning, reviewing documentation, counseling the patient, and discussing with other team members." ASSESSMENT ASSESSMENT Hospital Course Marginally improved Assessment Acute hypoxic respiratory failure: Oxygen by nasal cannula Acute CHF exacerbation BNP 4868 with reduced ejection fraction: Lasix Coreg Entresto consult for Dr. 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 Severe TR Moderate MR Elevated D-dimer 2.45 DVT ruled out PE ruled out Chronic current meth abuse: Counseling Blood cultures negative Hypercholesterolemia Chronic current history of smoking: Counseling History of polysubstance abuse Date of Service: Apr 13, 2025 Billing Provider: TOYIN CURRIE MD Common Visit Codes: 91209-PWU/OBS DISCH DAY >30min TOYIN CURRIE MD Apr 13, 2025 10:42
--- NOTE | 2025-04-13 10:55 | MEDREC ---
[facility] Intervention Section I [facility] Intervention: Review courses of therapy (Patient with NKA. Please consider a beta-lactam antibiotic as first line due to increase clindamycin resistant with some strains of group A strep ) [facility] RESIDENT Apr 13, 2025 10:55
[2025-04-13 11:42] VITALS: BP 115/63; PULSE 79; TEMP 36.7
--- NOTE | 2025-04-13 13:19 | DVHPN2 ---
Progress Note - Dictate Date Seen: Apr 13, 2025 Medical Necessity Reason Pt with a Central, PICC or Fol: No Subjective Patient was seen and evaluated in follow up. No acute complaints. Patients swelling is resolving. Urine output is 7500 cc. CO2 32. Telemetry reviewed. vital signs Vital Sign Date Time Temp Pulse Resp B/P (MAP) Pulse Ox O2 Delivery O2 Flow Rate FiO2 04/13/25 11:42 36.7 79 04/13/25 10:05 115/63 04/13/25 08:00 18 96 Room Air* 0 21 Total Intake and Output 04/12/25 04/12/25 04/13/25 14:59 22:59 06:59 Intake Total 620 ml 300 ml Output Total 3500 ml 4000 ml Balance -2880 ml -3700 ml medications Current Medications Medications Dose Ordered Sig/Nevaeh Route Start Time Stop Time Status Last Admin Dose Admin Sodium Chloride 10 ml Q8HR IV 04/10/25 14:00 04/13/25 05:36 10 ML Acetaminophen/ Hydrocodone Bitart 1 tab Q4HP PRN PO 04/10/25 12:15 04/11/25 09:42 1 TAB Ondansetron HCl 4 mg Q4HP PRN IV 04/10/25 12:15 Docusate Sodium 100 mg BIDPRN PRN PO 04/10/25 12:15 Acetaminophen 650 mg Q6HP PRN PO 04/10/25 12:15 Nitroglycerin 0.4 mg Q5MINP PRN SL 04/10/25 12:15 Morphine Sulfate 2 mg Q30M PRN IV 04/10/25 12:15 Apixaban 5 mg BID PO 04/10/25 22:00 04/13/25 10:01 5 MG Aspirin 81 mg DAILY PO 04/11/25 10:00 04/13/25 10:02 81 MG Atorvastatin Calcium 20 mg HS PO 04/10/25 22:00 04/12/25 21:19 20 MG Carvedilol 3.125 mg BID PO 04/10/25 22:00 04/13/25 10:05 3.125 MG Clindamycin Phosphate 50 ml @ 50 mls/hr Q8HR IV 04/10/25 14:00 04/13/25 05:38 50 MLS/HR Sacubitril/ Valsartan 0.5 tab BID PO 04/11/25 22:00 04/13/25 10:01 0.5 TAB Empaglifozin 10 mg DAILY PO 04/11/25 14:45 04/13/25 10:01 10 MG Spironolactone 25 mg DAILY PO 04/12/25 10:00 04/13/25 10:01 25 MG Furosemide 40 mg BIDD IV 04/12/25 10:15 04/13/25 05:38 40 MG objective GENERAL: Alert and oriented x 3. No acute distress. EYES: PERRL, EOMI. Anicteric. HENT: Moist mucous membranes. LUNGS: Clear to auscultation bilaterally. CARDIOVASCULAR: Regular rate and rhythm. ABDOMEN: Soft, nontender and nondistended. EXTREMITIES: + 2 pitting edema. NEUROLOGIC: No focal neurological deficits. SKIN: Warm, dry. laboratory and microbiology Laboratory Tests 04/13/25 05:04 04/12/25 04:58 Test 04/13/25 05:04 Range/Units Serum Glucose 93 74-106 mg/dL Problem List Acute heart failure with reduced ejection fraction exacerbation-NYHA class 3. End-stage cardiomyopathy. ? Drug-induced cardiomyopathy. Methamphetamine dependence.. Moderate MR. Severe TR. Dyslipidemia. Obesity. Assessment/Plan Continued all current supportive medical care. Patient has been seen by Ion Lu Resident on my behalf, we have discussed the plan with the patient. Increased diuresis with Lasix 40 mg IV b.i.d. Patient would benefit from medication refills on discharge. Started spironolactone 25 mg daily. Recommended continuing guideline directed medical therapy with Entresto, Coreg 3.125 b.i.d., Jardiance 10 mg daily. Strict I&Os, fluid restriction, cardiac diet. Follow up with abdominal limited ultrasound for ascites. Keep Mag greater than 2, K greater than 4. Monitor telemetry. Counseled regarding healthy lifestyle, physical exercise and diet. Additional plan as per the hospital course. Dietary Evaluation Review Comments: Nutrition Recommendation: 1) CCHO 60gm + cardiac diet 2) Refer Exercise Instructor for diabetes education 3) Monitor PO intake, lab values, weight trend, and I/O Expected Outcomes/Goals: Intake to meet >75% estimated needs Lab values to improve FU 3-5 days Plan discussed with: Patient NICOLE RANGEL MD Apr 13, 2025 12:27
== END 2025-04-13 13:23 | disposition home or self-care (01) | DRG 133 ==
LOC: EDBD 05:00 → ER 05:00 → OVERFLOW 12:06 → TELE-EAST 13:07
PROVIDERS: ADMIT Family Medicine; ATTEND Family Medicine
DX: J96.01 Acute respiratory failure with hypoxia (principal); I50.23 Acute on chronic systolic (congestive) heart failure; I11.0 Hypertensive heart disease with heart failure; F15.20 Other stimulant dependence, uncomplicated; E66.9 Obesity, unspecified; I08.1 Rheumatic disorders of both mitral and tricuspid valves; I42.7 Cardiomyopathy due to drug and external agent; E78.00 Pure hypercholesterolemia, unspecified; F17.200 Nicotine dependence, unspecified, uncomplicated; E80.6 Other disorders of bilirubin metabolism; I25.10 Atherosclerotic heart disease of native coronary artery without angina pectoris; R91.8 Other nonspecific abnormal finding of lung field; R74.01 Elevation of levels of liver transaminase levels; Z79.899 Other long term (current) drug therapy; Z86.718 Personal history of other venous thrombosis and embolism; Z90.49 Acquired absence of other specified parts of digestive tract; Z84.19 Family history of other disorders of kidney and ureter
CPT/HCPCS: 36415; 71045; 71275; 76705; 80048; 80053; 80307; 81001; 83036; 83605; 83735; 83880; 84443; 84484; 85025; 85379; 87040; 87081; 87205; 93970; 96365; 96366; 96368; 99291; G0378; J0692; J3490